=== PATIENT | male | born 1930 | race Caucasian/White ===

== ENCOUNTER 2017-08-02 20:31 | Inpatient (IN) | payer MEDICARE ==
[2017-08-02] MEDS ORDERED: Nitroglycerin 2% OINT* 1 GM PAK ONE (20:35)
[2017-08-02] MEDS ORDERED: Furosemide IV* 10 MG/ML VIAL (40 MG) ONE (20:35)
[2017-08-02] MEDS ORDERED: Furosemide IV* 10 MG/ML VIAL (40 MG) IV ONE (20:36)
[2017-08-02] MEDS ORDERED: Nitroglycerin 2% OINT* 1 GM PAK TOPICAL ONE (20:37)
[2017-08-02] MEDS ORDERED: Piperacillin/Tazobac ADVAN(*) 3.375 GM in NS 0.9% 100 ML* 100 ML IVPB ONE (20:57)
[2017-08-02] MEDS ORDERED: Azithromycin IV(*) 500 MG in NS 0.9% 250 ML* 250 ML IVPB SCH (21:00)
[2017-08-02] MEDS ORDERED: Azithromycin IV(*) 500 MG in NS 0.9% 250 ML* 250 ML IVPB ONE (21:00)
--- NOTE | 2017-08-02 21:04 | RAD ---
INDICATION: Short of breath COMPARISON: June 21, 2015 TECHNIQUE: An AP portable view obtained at 2053 hours is submitted. FINDINGS: Bones/Soft Tissues: There are no acute bony findings. Cardiomediastinal: The cardiomediastinal silhouette is normal. Lungs: There are patchy, bilateral, interstitial and alveolar infiltrates. Consider pulmonary interstitial edema. Given these diffuse changes, coexistent infectious infiltrates are not excluded. Suggest follow-up. Pleura: Tiny bilateral effusions.. Other: Chronic elevation left hemidiaphragm. IMPRESSION: BILATERAL INTERSTITIAL AND ALVEOLAR INFILTRATES LIKELY SECONDARY TO VASCULAR CONGESTION
[2017-08-02] MEDS ORDERED: Diltiazem IV* 5 MG/ML 5 ML VIAL (for loading dose/IV Push) (25 MG) IV SLOW PU ONE (21:34)
[2017-08-02 21:43] LABS: ABS Basophils 0 10^3/ul (0-0.2); ABS Eosinophils 0.1 10^3/ul (0-0.6); ABS Lymphocytes 0.4 10^3/ul (1.0-4.8); ABS Monocytes 0.9 10^3/ul (0-0.8); ABS Neutrophils 14.4 10^3/ul (1.5-7.7); ABS Nucleated RBC 0 10^3/ul; Eosinophil % 0.5 % (0-6); Hematocrit 44 % (42-52); Lymphocyte % 2.8 % (25-47); Mean Corpuscular HGB Conc 34 g/dl (31-36); Mean Corpuscular Hemoglobin 32 pg (27-31); Mean Corpuscular Volume 94 fL (80-94); Mean Platelet Volume 10 um3 (7.4-10.4); Nucleated Red Blood Cells % 0; Platelet Count 116 10^3/ul (150-450); Red Blood Count 4.69 10^6/ul (4.0-5.4); Red Cell Distribution Width 14 % (10.5-15); White Blood Count 15.9 10^3/ul (3.5-10.8)
[2017-08-02] MEDS: Acetaminophen TAB* 325 MG PO ONE ×2 (21:51→21:55)
[2017-08-02 21:52] LABS: INR 1.09 (0.77-1.02)
[2017-08-02 22:05] LABS: EGFR Non-African American 81.9 (>60)
[2017-08-02] MEDS ORDERED: Oseltamivir CAP* 75 MG CAP PO ONE (22:08)
[2017-08-02] MEDS ORDERED: Vancomycin(*) 1,000 MG in NS 0.9% 250 ML* 250 ML IVPB ONE (22:08)
[2017-08-02 22:10] LABS: Urine Appearance Clear; Urine Blood 1+ (Negative); Urine Color Straw; Urine Ketones Negative (Negative); Urine Protein 2+(100 mg/dL) (Negative); Urine Specific Gravity 1.008 (1.010-1.030); Urine Urobilinogen Negative (Negative)
[2017-08-02] MEDS ORDERED: Al Hydrox/Mg Hydrox/Simet LIQ* 30 ML UDC PO PRN (22:58)
[2017-08-02] MEDS ORDERED: Senna TAB PO PRN (22:58)
[2017-08-02] MEDS ORDERED: Ondansetron INJ* 2 MG/ML VIAL IV PRN (22:58)
--- NOTE | 2017-08-02 23:04 | ED ---
Sara Jones Thomas, scribed for Martha Lynn MD on 08/02/17 at 2054 . Shortness of Breath - HPI Summary HPI Summary: The patient is an 87 year old male brought in by ambulance with respiratory distress. In the ambulance he was satting 70% and respirations were in the 40s. The patient was given a Duo-Neb by EMS with no change in saturation or respirations. He was put on CPAP en route to [facility] [place] He was given 10 mg dexamethasone IM by EMS. He denies chest pain. His was recently sick with the flu. It is unknown if he has a history of CHF. - History of Current Complaint Chief Complaint: EDShortnessOfBreath Hx Obtained From: Patient, EMS Onset/Duration: Still Present Timing: Constant Current Severity: Severe Dyspnea At: Rest Alleviating Factors: Nothing Associated Signs & Symptoms: Negative - CP - Allergy/Home Medications Allergies/Adverse Reactions: Allergies Allergy/AdvReac Type Severity Reaction Status Date / Time MS Latex [Latex] Allergy Severe Rash And Verified 03/30/16 11:38 Itching MS Zolpidem [From Ambien] Allergy Anxiety Verified 03/30/16 11:28 MS Niacin [Niacin] AdvReac Severe See Comment Verified 03/30/16 11:28 Home Medications: Home Medications Aspirin EC Low Dose* [Ecotrin EC Low Dose 81 MG*] 81 mg PO QAM 08/02/17 [ History Confirmed 08/02/17] DOXYcycline CAP(*) [DOXYcycline 100MG CAP(*)] 100 mg PO BID 08/02/17 [History Confirmed 08/02/17] Multivitamins/Minerals TAB* [Theragran/minerals TAB*] 1 tab PO DAILY 08/02/17 [ History Confirmed 08/02/17] Nitroglycerin TAB 0.4 MG* 0.4 mg SL Q5M PRN 08/02/17 [History Confirmed 08/02/17 ] Simvastatin (NF) [Zocor (NF)] 40 mg PO QPM 08/02/17 [History Confirmed 08/02/17] PMH/Surg Hx/FS Hx/Imm Hx Endocrine/Hematology History: Reports: Hx Anticoagulant Therapy, Hx Anemia Denies: Hx Blood Disorders, Hx Blood Transfusions, Hx Bone Marrow Disease, Hx Diabetes, Hx Systemic Lupus Erythematosus, Hx Sickle Cell Disease, Hx Thyroid Disease, Hx Unexplained Bleeding, Other Endocrine/Hematological Disorders Cardiovascular History: Reports: Hx Angina, Hx Angioplasty, Hx Atrial Fibrillation - ON WARFARIN, Hx Coronary Artery Disease, Hx Hypercholesterolemia , Hx Hypertension, Hx Syncope Denies: Hx Aneurysm, Hx Auto Implanted Cardiovert Defib, Hx Cardiac Arrest, Hx Cardiomegaly, Hx Congenital Heart Disease, Hx Congestive Heart Failure, Hx Deep Vein Thrombosis, Hx Embolism, Hx Hypotension, Hx Pacemaker/ICD, Hx Peripheral Vascular Disease, Hx Rheumatic Fever, Hx Valvular Heart Disease, Other Cardiovascular Problems/Disorders Respiratory History: Reports: Other Respiratory Problems/Disorders - SOB Denies: Hx Asthma, Hx Chronic Bronchitis, Hx Chronic Obstructive Pulmonary Disease (COPD), Hx Cystic Fibrosis, Hx Lung Cancer, Hx Pleural Effusion, Hx Pneumonia, Hx Pulmonary Edema, Hx Pulmonary Embolism, Hx Seasonal Allergies, Hx Sleep Apnea GI History: Reports: Hx Gastroesophageal Reflux Disease, Hx Hiatal Hernia - hx herniated diaphram, Other GI Disorders - hx pancreatitis; Denies: Hx Cirrhosis, Hx Crohn's Disease, Hx Diverticulosis, Hx Gall Bladder Disease, Hx Gastrointestinal Bleed, Hx Irritable Bowel, Hx Jaundice, Hx Obstructive Bowel, Hx Ileostomy, Hx Pyloric Stenosis, Hx Ulcer History: Denies: Hx Renal Disease Musculoskeletal History: Reports: Hx Arthritis, Hx Bursitis Denies: Hx Back Problems, Hx Congenital Bone Abnormalities, Hx Fibromyalgia, Hx Gout, Hx Orthopedic Injury, Hx Osteoporosis, Hx Scoliosis, Hx Tendonitis, Other Musculoskeletal History Sensory History: Reports: Hx Cataracts, Hx Contacts or Glasses Denies: Hx Eye Injury, Hx Eye Prosthesis, Hx Glaucoma, Hx Legally Blind, Hx Macular Degeneration, Hx Vision Problem, Hx Deafness, Hx Hearing Aid, Hx Hearing Problem, Other Sensory Impairments Opthamlomology History: Reports: Hx Cataracts, Hx Contacts or Glasses Denies: Hx Eye Injury, Hx Eye Prosthesis, Hx Glaucoma, Hx Legally Blind, Hx Macular Degeneration, Hx Vision Problem, Other Sensory Impairments Neurological History: Reports: Hx Transient Ischemic Attacks (TIA) - 1986 Denies: Hx Dementia, Hx Developmental Delay, Hx Headaches, Hx Migraine, Hx Nerve Disease, Hx Seizures, Hx Spinal Cord Injury, Other Neuro Impairments/ Disorders - Cancer History Cancer Type, Location and Year: 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 - Surgical History Surgery Procedure, Year, and Place: CARDIAC STENT PLACED 2011, left posterior shoulder melanoma removed - Immunization History Date of Tetanus Vaccine: unknown Infectious Disease History: Reports: Hx of Known/Suspected MRSA Denies: Hx Hepatitis, Hx Tuberculosis - Family History Known Family History: Positive: Cardiac Disease - Social History Alcohol Use: Rare Alcohol Amount: 5-6 glasses a week Hx Substance Use: No Substance Use Type: Reports: None Hx Tobacco Use: Yes Smoking Status (MU): Former Smoker Type: Cigarettes Amount Used/How Often: 3 PPD Length of Time of Smoking/Using Tobacco: 55 years Have You Smoked in the Last Year: No Review of Systems Negative: Chest Pain Positive: Shortness Of Breath All Other Systems Reviewed And Are Negative: Yes Physical Exam - Summary Physical Exam Summary: VITAL SIGNS: Reviewed. He is tachypnic and hypertensive. GENERAL: Patient is a well-developed and nourished male who is lying in the stretcher. He is in respiratory distress. HEAD AND FACE: No signs of trauma. No ecchymosis, hematomas or skull depressions. No sinus tenderness. EYES: PERRLA, EOMI x 2, No injected conjunctiva, no nystagmus. EARS: Hearing grossly intact. Ear canals and tympanic membranes are within normal limits. MOUTH: Oropharynx within normal limits. NECK: There is 6 cm JVD. Supple, trachea is midline, no adenopathy, no carotid bruit, no c-spine tenderness, neck with full ROM. CHEST: Symmetric, no tenderness at palpation LUNGS: He is in respiratory distress. He is tachypnic. He has difficulty breathing. He has bialteral rales long-term up. CVS: Regular rate and rhythm, S1 and S2 present, no murmurs or gallops appreciated. He denies any chest pain. ABDOMEN: Soft, non-tender. No signs of distention. No rebound no guarding, and no masses palpated. Bowel sounds are normal. EXTREMITIES: FROM in all major joints, no edema, no cyanosis or clubbing. NEURO: Alert and oriented x 3. No acute neurological deficits. Speech is normal and follows commands. SKIN: Dry and warm Triage Information Reviewed: Yes Vital Signs On Initial Exam: Initial Vitals Pulse Resp 148 43 08/02/17 20:42 08/02/17 20:42 Vital Signs Reviewed: Yes Diagnostics - Vital Signs Vital Signs Pulse Resp 08/02/17 20:42 148 43 - Laboratory Result Diagrams: 08/02/17 21:25 08/02/17 21:25 Lab Statement: Any lab studies that have been ordered have been reviewed, and results considered in the medical decision making process. - Radiology CXR Xray Interpretation: Positive (See Comments) - BILATERAL INTERSTITIAL AND ALVEOLAR INFILTRATES LIKELY SECONDARY TO VASCULAR CONGESTION. Dr. Lynn has reviewed this report. Radiology Interpretation Completed By: Radiologist - EKG 20:43 Cardiac Rate: Tachycardia EKG Rhythm: Atrial Fibrillation - with RVR at 144 BPM EKG Interpretation: Nonspecific ST. Re-Evaluation - Re-Evaluation First Eval Re-Evaluation Time: 22:59 Comment: Discussed results. Patient will be admitted. Course/Dx - Course Assessment/Plan: The patient is an 87 year old male brought in by ambulance with respiratory distress. The patient was not given IV fluids as per sepsis protocol because he does have congestive heart failure, which is acute as well. Bloodwork, EKG, and CXR were obtained. The patient is diagnosed with pneumonia, CHF, and influenza. The patient was treated with antibiotics, diuretics, and Tamiflu. The patient is doing well on BiPap. He is hemodynamically stable and will be admitted to Dr. Burks. - Diagnoses Provider Diagnoses: Pneumonia, CHF (congestive heart failure), Influenza - Physician Notifications Discussed Care of Patient With: Davina Burks Time Discussed With Above Provider: 22:40 Instructed by Provider To: Admit As Inpatient - Critical Care Time Critical Care Time: 30-74 min - 40 minutes. CCT is exclusive of seprately billable procedures. Discharge - Discharge Plan Condition: Stable Disposition: ADMITTED TO [facility] Referrals: Shante Reyes MD [Primary Care Provider] - The documentation as recorded by the Sara warren Thomas accurately reflects the service I personally performed and the decisions made by Shane montesinos Abdul, MD.
[2017-08-02] MEDS: Acetaminophen TAB* 325 MG PO PRN (23:07)
[2017-08-02] MEDS ORDERED: NS 0.9% 500 ML* 500 ML IV ONE (23:20)
[2017-08-02] MEDS ORDERED: Metoprolol Tartrate IV* 1 MG/ML 5 ML VIAL IV PRN (23:22)
[2017-08-02] MEDS ORDERED: Oseltamivir CAP* 75 MG CAP PO SCH (23:30)
[2017-08-03] MEDS ORDERED: Magnesium Sulfate 1 GM IV* 1 GM/100 ML BAG IV ONE (00:05)
[2017-08-03] MEDS ORDERED: NS 0.9% 500 ML* 500 ML IV ONE (02:32)
[2017-08-03] MEDS: Heparin VIAL(*) 5000 UNITS/ML VIAL (FIVE THOUSAND) SUBCUT SCH ×3 (05:40→21:09)
[2017-08-03 06:01] LABS: ABS Basophils 0 10^3/ul (0-0.2); ABS Eosinophils 0 10^3/ul (0-0.6); ABS Lymphocytes 0.5 10^3/ul (1.0-4.8); ABS Monocytes 0.3 10^3/ul (0-0.8); ABS Neutrophils 8.9 10^3/ul (1.5-7.7); ABS Nucleated RBC 0 10^3/ul; Eosinophil % 0 % (0-6); Hematocrit 40 % (42-52); Hemoglobin 13.4 g/dl (14.0-18.0); Lymphocyte % 5.2 % (25-47); Mean Corpuscular HGB Conc 34 g/dl (31-36); Mean Corpuscular Hemoglobin 32 pg (27-31); Mean Corpuscular Volume 95 fL (80-94); Mean Platelet Volume 10 um3 (7.4-10.4); Nucleated Red Blood Cells % 0; Platelet Count 91 10^3/ul (150-450); Red Blood Count 4.18 10^6/ul (4.0-5.4); Red Cell Distribution Width 14 % (10.5-15); White Blood Count 9.7 10^3/ul (3.5-10.8)
[2017-08-03 06:04] LABS: EGFR Non-African American 92.8 (>60)
--- NOTE | 2017-08-03 08:25 | HP ---
CC: Dr. Shante Ryees.* HISTORY AND PHYSICAL: DATE OF ADMISSION: 08/02/17. TIME OF EVALUATION: 2199. PRIMARY CARE PHYSICIAN: Dr. Shante Reyes CHIEF COMPLAINT: Respiratory distress. HISTORY OF PRESENT ILLNESS: This is an 87-year-old male with the past medical history of coronary artery disease, CHF, and moderate , who presented to the emergency room with acute onset of respiratory distress. The patient states he was in his usual state of health when he woke up acutely short of breath. His daughter, who cares him at home, called EMS and he was brought to the emergency room. In the emergency room, the patient was found to be in florid heart failure per the ER staff. He was placed on BiPAP. He was given Lasix 40 mg, Diltiazem 20 mg, and an inch of Nitropaste. He was given Tamiflu when his flu came back positive, Zosyn, vancomycin, and was referred to the hospitalist service for further evaluation. The patient states he was in his usual state of health. He denies any chest pain. No nausea or vomiting. No abdominal pain. He is having some discomfort around the James catheter area. No dysuria. He thinks he has been gaining some weight. He had some canned soup for dinner last evening. When discussing his home situation, his daughter Aleja, his healthcare proxy, helps care for him with his ADLs. He does ambulate with a walker. I did speak with Aleja, his health-care proxy, over the phone. She was diagnosed with the flu a few days ago. She states that she had noticed that he had been coughing more, but did not seem to be in any significant distress throughout the day. Otherwise, review of systems is negative. PAST MEDICAL HISTORY: 1. History of coronary artery disease, status post PCI. 2. History of hyperlipidemia. 3. History of moderate based on prior echo. 4. History of congestive heart failure. 5. History of anemia. 6. Hyperlipidemia. MEDICATIONS: Per med rec, as the patient was not sure what he was takin. Zocor 40 mg p.o. daily. 2. Aspirin 81 mg p.o. daily. 3. Multivitamin daily. 4. Lasix [40 to 1200?] mg p.o. daily. 5. Metoprolol 25 mg p.o. b.i.d. 6. Doxycycline 100 mg p.o. b.i.d. 7. Potassium chloride 20 mEq p.o. daily. 8. Nitro 0.4 mg sublingual q.5 minutes as needed. 9. Plavix 75 mg daily. ALLERGIES: LATEX, NIACIN, ZOLPIDEM. FAMILY HISTORY: Reviewed and noncontributory. SOCIAL HISTORY: As mentioned, the patient lives at home with his daughter, Aleja. He ambulates with a walker. She helps him with bathing, dressing, and meals. He does get out of the house every once in a while to go to [employer] to have a glass of wine. He last went out on 07/28/17. Code status - this has been discussed. Initially, the patient wishes to be DNR/DNI; then, with concern of eminent intubation, he stated he did not care. I talked to the daughter at length. They would like to give it a try if it is appropriate. Healthcare proxy is Aleja, his daughter. REVIEW OF SYSTEMS: A 14-point review of systems as mentioned in the HPI, otherwise negative. PHYSICAL EXAMINATION GENERAL: Elderly male, in [id number] respiratory distress, on nasal cannula once removed off of trial BiPAP, improved while on BiPAP. VITAL SIGNS: T-Max 102, pulse rate 68, respiratory rate 22, pulse oxygen saturation on 60% FiO2 BIPAP, blood pressure 90/50. HEENT: Head normocephalic. Pupils equal and reactive, anicteric. Oropharynx: Mucous membranes are dry. NECK: Supple, no adenopathy. RESPIRATORY: Coarse rhonchorous breath sounds bilaterally with increased work of breathing. CARDIAC: Irregular regular rate and rhythm. Soft systolic murmur heard throughout. ABDOMEN: Soft, nontender, nondistended. EXTREMITIES: Trace pretibial edema, +1 DPs. NEUROLOGIC: No gross focal neurologic deficits. Alert and oriented x3. LABORATORY DATA: White count 15.9, hemoglobin 15, hematocrit 44, and platelets 116. INR 1.09. Blood gas - pH of 7.4, pCO2 of 37, pO2 of 73. Sodium 132, potassium 4, chloride 99, bicarb 23, BUN 19, creatinine 0.88, glucose 193, mag 1.8, troponin 0.18. BMP is 176. Urinalysis shows +1 blood, protein, influenza A positive. Radiographic data: Chest x-ray shows bilateral interstitial and alveolar infiltrates, likely secondary to vascular congestion. EKG: Shows atrial fibrillation with a rapid ventricular rate, ST depression in the inferior leads. ASSESSMENT: This is an 87-year-old male with the past medical history of coronary artery disease, CHF, who presents to the emergency room with acute onset of respiratory distress and found to have influenza A. 1. Respiratory distress. Assessment: This is going to be challenging with sepsis and influenza, giving him volume in the setting of his heart failure. We discussed intubating him. In the emergency room, the patient appears relatively comfortable on BiPAP. He appears ambivalent about getting intubated. I did speak with Dr. Villeda at length regarding his clinical status. Plan: We will admit to the ICU. We will give him gentle boluses throughout the evening. If he becomes more distressed or dependant with the BiPAP requiring more FiO2, we will intubate him. We will continue him on the Tamiflu and keep him n.p.o. Due to the acute onset, I do not think he has a secondary pneumonia at this time. We will check a procalcitonin. 2. Elevated troponin: I suspect this is demand ischemia in the setting of sepsis. He does not have any chest pain. He does have some ST depression on his EKG. Plan: We will trend his troponins, repeat his EKG in the morning. We will follow up with communication center operator and Dr. Reyes regarding further workup including an echocardiogram. 3. Atrial fibrillation: It is not clear that he has had this in the past. It appears it could be new onset, likely in the setting of the sepsis. He did respond to the Diltiazem. With his heart failure presentation as well, we will give him metoprolol boluses as needed. His rate has come down since his admission. No indication for anticoagulation at this time. 4. Chronic medical problems: History of coronary artery disease, moderate aortic sclerosis. As mentioned, we would follow up on when his most recent echo was, may be worthwhile checking it; again, we will defer to the daytime team. We will hold his p.o. cardiac meds for now in the setting of his respiratory distress. 5. Fluids, electrolytes and nutrition: NPO. We will bolus him as needed. 6. Deep venous thrombosis prophylaxis: The patient's score is high risk. We will place him on heparin subcu t.i.d. 7. Code status: For now, the patient is full code. He seemed rather ambivalent about this. I asked him several times. At first, he was saying he did not want anything. The daughter, I spoke with as well as, feels like he should give it a try and that he would want to try. We will keep him a full code and this should be readdressed daily in his critical state. PATIENT TIME: Greater than 60 minutes spent doing history and physical, more than half the time was spent in direct patient contact, critical care time, and discussion with the ER doctor, daughter, and Dr. Villeda. [id number]/[facility] #: [id number] AALIYAH
[2017-08-03] MEDS: Oseltamivir CAP* 75 MG CAP PO SCH ×2 (08:55→21:09)
--- NOTE | 2017-08-03 09:08 | ECHO ---
Patient: AVEL JAMES [facility] Rec#: [id number] : 1930 Date: 08/03/2017 Age: 87y Height: 180.34 cm / 71.0 in Weight: 99.79 kg / 219.9 lbs Sex: M BSA: 2.2 Room#: ICU-5 Admit Date#: 08/02/2017 Type: Inpatient Referring: Davina Burks Reading: Rick Chaney MD [employer] Operator: Shanon Knight RDCS CC: Shante Reyes MD Transthoracic Echocardiogram Indication: ACS, CHF, A-fib BP: 92/61 HR: 99 Rhythm: A-Fib Findings History: A-fib on Warfarin, CAD w/ stent 2011, former smoker, HLD, HTN, and syncope. Technical Comments: The study quality is fair. The study is technically limited due to poor acoustic windows. Completed at 0840. Left Ventricle: The left ventricular chamber size is normal. Moderate concentric left ventricular hypertrophy is observed. There is a focal wall motion abnormality present. Left ventricular systolic function is at the lower limits of normal. The estimated ejection fraction is 50-55%. The assessment of diastolic function is non-diagnostic. The mid inferior, and apical inferior wall segments are hypokinetic (score 2). Overall wallmotion score index is 2.00 Left Atrium: The left atrium is mildly dilated. Right Ventricle: The right ventricle wall thickness is mildly increased. The right ventricular cavity size is normal. The right ventricular global systolic function is low normal. Right Atrium: The right atrium is mildly dilated. Aortic Valve: The aortic valve is trileaflet. Moderate aortic leaflet calcification is visualized. Systolic excursion of the aortic valve cusps is reduced. There is mild aortic regurgitation. There is moderate aortic stenosis. The mean gradient of the aortic valve is 17.44 mmHg. The peak instantaneous gradient of the aortic valve is 27.63 mmHg. The aortic valve area, by peak velocities, is calculated at 0.8 cm2. The aortic valve area, by VTI's, is calculated at 0.8 cm2. Mitral Valve: There is mitral annular calcification. The mitral valve leaflets are mildly thickened. There is trace to mild mitral regurgitation. There is no evidence of mitral stenosis. Tricuspid Valve: The tricuspid valve leaflets are normal. There is trace tricuspid regurgitation. The right ventricular systolic pressure is estimated at 31 mmHg. There is evidence that pulmonary hypertension may be underestimated. There is no tricuspid stenosis. Pulmonic Valve: The pulmonic valve structure is not well visualized. There is a trace pulmonic regurgitation. There is no pulmonic stenosis. Pericardium: There is no significant pericardial effusion. A pericardial fat pad is visualized. Aorta: There is no dilatation of the ascending aorta. There is no dilatation of the aortic arch. The aortic root is normal in size. Pulmonary Artery: The main pulmonary artery is not well visualized. Venous: The inferior vena cava is dilated. There is less than 50% respiratory change in the inferior vena cava dimension. Conclusions Moderate concentric left ventricular hypertrophy is observed. Left ventricular systolic function is at the lower limits of normal. The estimated ejection fraction is 50-55%. The mid inferior, and apical inferior wall segments are hypokinetic (score 2). The right ventricular global systolic function is low normal. Moderate aortic leaflet calcification is visualized. There is moderate aortic stenosis. The mean gradient of the aortic valve is 17.44 mmHg. There is mild aortic regurgitation. There is trace to mild mitral regurgitation. There is trace tricuspid regurgitation. The right ventricular systolic pressure is estimated at 31 mmHg. There is no significant pericardial effusion. Compared to study of 10/28/15, the LV function is slightly lower. Aortic valve stenosis is the same Measurements Name Value Normal Range RVIDd (AP) 2D 3 cm (0.9 - 2.6) RVDdMajor (2D) 3.9 cm (2.2 - 4.4) RVAW (2D) 0.6 cm (0.2 - 0.5) RAd ISD 4CH 5 cm (3.4 - 4.9) RA (A4C)W 3.8 cm (2.9 - 4.6) IVSd (2D) 1.5 cm (0.6 - 1) LVPWd (2D) 1.4 cm (0.6 - 1) LVIDd (2D) 4.2 cm (3.6 - 5.4) LVIDs (2D) 3.6 cm - LV FS (2D) 15 % (25 - 45) Aortic Annulus 2.3 cm (1.4 - 2.6) Ao root diameter (2D) 3.2 cm (2.1 - 3.5) Ascending Ao 3.1 cm (2.1 - 3.4) Aortic arch 3 cm (1.8 - 3.4) LA dimension (AP) 2D 3.6 cm (2.3 - 3.8) LAd ISD 4CH 6.5 cm (2.9 - 5.3) LA ISD 4CH W 5 cm (2.5 - 4.5) Name Value Normal Range LA ESV SP 4CH (A/L) 61 ml - LA ESV SP 2CH (A/L) 90 ml - LA ESV BP (A/L) 76 ml - LA ESV BP (A/L) index 35 ml/m2 - LA ESV SP 4CH (MOD) 57 ml - LA ESV SP 2CH (MOD) 86 ml - Name Value Normal Range MV E-wave Vmax 1.22 m/sec - MV deceleration time 167 msec - MV E:A ratio 214.92 ratio - LV septal e' Vmax 0.06 m/sec - LV lateral e' Vmax 0.06 m/sec - LV E:e' septal ratio 20.33 ratio - LV E:e' lateral ratio 20.33 ratio - Name Value Normal Range AV Vmax 2.6 m/sec - AV VTI 54.49 cm - AV peak gradient 27.63 mmHg - AV mean gradient 17.44 mmHg - LVOT diameter 2.1 cm - LVOT Vmax 0.58 m/sec - LVOT VTI 13 cm - LVOT peak gradient 1.38 mmHg - LVOT mean gradient 0.81 mmHg - DOI (VTI) 0.24 ratio - OSILE (continuity Vmax) 0.8 cm2 - OSIEL (continuity VTI) 0.8 cm2 - AR PHT 433 msec - AR peak gradient 45.17 mmHg - AFSANEH Vmax 0.35 m/sec - Name Value Normal Range TR Vmax 2 m/sec - TR peak gradient 16 mmHg - RAP 15 mmHg - RVSP 31 mmHg - IVC diameter 2.6 cm - Name Value Normal Range PV Vmax 0.68 m/sec - PV peak gradient 1.89 mmHg - Wallmotion BAS Not Seen BA Not Seen BAL Not Seen LEILA Not Seen BI Not Seen BIS Not Seen MAS Not Seen MA Not Seen MAL Not Seen MIL Not Seen OH Hypokinetic MIS Not Seen Not Seen AA Not Seen AL Not Seen AI Hypokinetic APEX Not Seen
[2017-08-03] MEDS ORDERED: Succinylcholine* 20 MG/ML 10 ML VIAL ONE (09:41)
[2017-08-03] MEDS ORDERED: Propofol* 100 ML ONE (09:48)
[2017-08-03] MEDS ORDERED: fentaNYL* 50 MCG/ML 5 ML VIAL (250 MCG VIAL) ONE (09:55)
[2017-08-03] MEDS ORDERED: KETAMINE HCL* 50 MG/ML 10 ML VIAL ONE (10:00)
[2017-08-03] MEDS ORDERED: Propofol* 10 MG/ML 20 ML BTL IV PUSH ONE (10:01)
[2017-08-03] MEDS ORDERED: NS 0.9% 1000 ML* 1,000 ML IV ONE (10:07)
[2017-08-03] MEDS: Propofol* 100 ML IV SCH ×3 (11:00→21:54)
[2017-08-03] MEDS: Famotidine SUSP* 40 MG/5 ML ORAL.SYRIN G TUBE SCH (11:16)
[2017-08-03] MEDS: Chlorhexidine MOUTHWASH 0.12%* 15 ML UDC TOPICAL SCH ×4 (11:16→22:01)
[2017-08-03] MEDS: Clopidogrel TAB* 75 MG PO SCH (11:16)
[2017-08-03] MEDS: Aspirin EC Low Dose* 81 MG TAB.EC PO SCH (11:16)
--- NOTE | 2017-08-03 11:35 | PN ---
Progress Note - Progress Note Date of Service: 08/03/17 Note: CRITICAL CARE MEDICINE Date: 08/03/17 Time: 900 SUBJECTIVE: Patient seen and examined. daughter at bedside. Case and care reviewed with Dr. Burks through the night. Feels ok. so so. little tired. bipap ok. no pains. PHYSICAL EXAM: Vital Signs: Reviewed. Hr 90s. Neurologic: awake, comminicating, holds capacity HEENT: pupils equal. Sclera anicteric. Trachea midline. Cardiovascular: S1 S2, 3/6 mathew of as Respiratory: diffuses rhonchi and mild squalk on left base. 50% FiO2 with sats mid 90s. Bipap with rr in 20s and MV in low to mid teens. adequate volumes but variable Abdomen: Soft, obese, nt. No r/g/r. Extremities: Warm. Access: piv LABS: Reviewed. IMAGING: Reviewed. MEDICATIONS: Reviewed. ASSESSMENT: 87 M Influenza A pna Acute hypoxic resp failure Afib with rvr on admission (previously on anticoag) NSTEMI - sec to demand ischemia Acute on chronic systolic heart failure, with Thrombocytopenia sec to inflamm consumption CAD (h/o 9 stents) H/o GIB (when on anticoag) PLAN: discussed plans with pt: intubation and mv for a few days to overcome resp failure/influ A and avoid potential for ards and worsening, already with demand ischemia, needing time to overcome. COuld consider remaining on bipap, but would need several days with not much time without and chances of lungs failing leading to further cardiac ailments high. He expressed understanding and agrees with intubation. Neurologic: communicating well and hold capacity. propofol post intubation. Cardiovascular: Pefusing but demands high and will likely remain that way. Type 2 ischemia alraedy apparent. take away demand with intubation and avoid further cardiac vol overload and exacerbating as. resume his asa, plavix, statin. given bleed history and type 2, can hold off on anticoag beyond that. afib rate control. add back bb when room. appreciate cards knowledge of pt. may need to re -investigate cad after he gets through this process since this is a stress test failure with focal wall motion abnormality but no acute need given his present dynamics. Respiratory: lungs will need time. intubation. aprv when able. pulm toliet. Gastrointestinal: ogt. sup. tf Renal/Metabolic: f/u fx as hemoconcentrated on admission and maintaining their balance. baker Infectious Disease: tamiflu. recieved abx. can equilibrate to using levaquin alone to avoid potential bacterial ailment, although luckily only acting viral and nontoxic. check sputum. Hematology: dilutated a little. plt consumption. asa, plavix. hsq Endocrine: f/u for any steroid needs. bg Musculoskeletal: avoid deconditioning Psych/Social: pt and daugther (who he states is his proxy) expressed understanding and agreed with plans. Supportive and preventative care as ordered. Vaccine: received flu already SUP: H2 VTE prophylaxis: heparin Baker catheter given critical illness, monitoring needs for accurate assessment of MIGUEL and KDIGO criteria for critically ill patients and to avoid potential harms of urinary retention, skin breakdown/ulcers. Disposition: ICU Code Status: DNR Critical Care Time: 35min, excluding procedures Brayan Villeda DO
--- NOTE | 2017-08-03 11:36 | PN ---
Progress Note - Progress Note Date of Service: 08/03/17 Note: CRITICAL CARE MEDICINE PROCEDURE NOTE DATE: 08/03/17 TIME: 1000 SERVICE: Critical Care Medicine LOCATION OF PROCEDURE: ICU PROCEDURE: Endotracheal intubation PROCEDURALIST: Dr. Villeda Consent obtain: Yes, but procedure performed emergently Time out held: Not indicated INDICATION: Acute respiratory failure. PROCEDURE: Oxygenation maintained and vitals monitored. Patient in supine position. Pre-medication with fentanyl 250mcg total, ketamine 100mg, propofol 50mg. Glidescope #3 inserted with Grade 2 view obtained. 8.0 endotracheal tube inserted to 23cm lip. Good chest rise with breath sounds appreciated in bilaterally lung arciniega. EtCO2 + color change. Portable chest x-ray pending. Patient otherwise tolerated well. Brayan Villeda, DO
[2017-08-03] MEDS ORDERED: Levofloxacin 750 MG IVPREMIX(* 750 MG/150 ML BAG IVPB SCH (12:00)
--- NOTE | 2017-08-03 12:26 | RAD ---
INDICATION: Status post intubation and orogastric tube placement. COMPARISON: Comparison is made with prior study from August 02, 2017. TECHNIQUE: A portable view of the chest was obtained. FINDINGS: The patient is status post intubation. The endotracheal tube projects over the midline and is faintly visualized. There is also faint visualization of an orogastric tube. The catheter tip projects overlying the right upper quadrant. The heart is moderately enlarged. There are diffuse interstitial and alveolar infiltrates and small bilateral pleural effusions suggestive of congestive heart failure. IMPRESSION: 1. FINDINGS SUGGESTIVE OF CONGESTIVE HEART FAILURE. 2. STATUS POST INTUBATION AND OROGASTRIC TUBE PLACEMENT.
[2017-08-03] MEDS: Atorvastatin* 40 MG TAB PO SCH (16:55)
[2017-08-03] MEDS: Metoprolol Tartrate IV* 1 MG/ML 5 ML VIAL IV PRN (21:44)
[2017-08-04] MEDS: Chlorhexidine MOUTHWASH 0.12%* 15 ML UDC TOPICAL SCH ×5 (02:32→19:40)
[2017-08-04] MEDS: Propofol* 100 ML IV SCH ×3 (04:00→21:16)
[2017-08-04 04:30] LABS: Hematocrit 38 % (42-52); Hemoglobin 12.8 g/dl (14.0-18.0); Mean Corpuscular HGB Conc 34 g/dl (31-36); Mean Corpuscular Hemoglobin 32 pg (27-31); Mean Corpuscular Volume 95 fL (80-94); Mean Platelet Volume 11 um3 (7.4-10.4); Platelet Count 103 10^3/ul (150-450); Red Blood Count 3.98 10^6/ul (4.0-5.4); Red Cell Distribution Width 14 % (10.5-15); White Blood Count 9.5 10^3/ul (3.5-10.8)
[2017-08-04 04:46] LABS: EGFR Non-African American 101.6 (>60)
[2017-08-04 04:55] LABS: ABS Basophils 0 10^3/ul (0-0.2); ABS Eosinophils 0 10^3/ul (0-0.6); ABS Lymphocytes 0.6 10^3/ul (1.0-4.8); ABS Monocytes 2.2 10^3/ul (0-0.8); ABS Neutrophils 6.6 10^3/ul (1.5-7.7); ABS Nucleated RBC 0 10^3/ul; Eosinophil % 0.1 % (0-6); Lymphocyte % 5.9 % (25-47); Nucleated Red Blood Cells % 0
[2017-08-04] MEDS: Heparin VIAL(*) 5000 UNITS/ML VIAL (FIVE THOUSAND) SUBCUT SCH ×3 (05:29→21:00)
[2017-08-04] MEDS: Metoprolol Tartrate TAB* 25 MG NG TUBE SCH ×2 (09:13→20:51)
[2017-08-04] MEDS: Aspirin EC Low Dose* 81 MG TAB.EC PO SCH (09:13)
[2017-08-04] MEDS: Clopidogrel TAB* 75 MG PO SCH (09:13)
[2017-08-04] MEDS: Famotidine SUSP* 40 MG/5 ML ORAL.SYRIN G TUBE SCH (09:13)
[2017-08-04] MEDS: Oseltamivir SUSP 75 MG dose* 75 MG/12.5 ML ORAL.SYRIN PO SCH ×2 (09:15→21:04)
--- NOTE | 2017-08-04 10:56 | PN ---
Progress Note - Progress Note Date of Service: 08/04/17 Note: CRITICAL CARE MEDICINE Date: 08/04/17 Time: 925 SUBJECTIVE: Patient seen and examined. daughter at bedside. PHYSICAL EXAM: Vital Signs: Reviewed. Hr 90s to 100s. bp stable. Fio2 30%. Neurologic: awakes; Rass -2. comfortable. denies pain. HEENT: pupils equal. Sclera anicteric. Trachea midline. Cardiovascular: S1 S2, 3/6 mathew of as more prominent Respiratory: distant, but more open, with bl rhonchi R>L. Vol and pressures stable. adjusted to aprv. Abdomen: Soft, obese, inc distension. nt. Extremities: Warm. Access: piv LABS: Reviewed. IMAGING: Reviewed. MEDICATIONS: Reviewed. ASSESSMENT: 87 M Influenza A pna Acute hypoxic resp failure Afib with rvr on admission (previously on anticoag) NSTEMI - sec to demand ischemia Acute on chronic systolic heart failure, with Thrombocytopenia sec to inflamm consumption CAD (h/o 9 stents) H/o GIB (when on anticoag) PLAN: Neurologic: communicating. keep comfortable on prop today. Cardiovascular: Pefusing. demands ok. hr still up a bit and bb added. inc as able. afterload reduction ultimately as well. cardiac regimen. Respiratory: lungs stabilized and see if we can maximize today with aprv. pulm toliet. nebs prn. cxr in am Gastrointestinal: ogt. sup. tf Renal/Metabolic: stable. baker Infectious Disease: tamiflu. dec levaquin and total abx for 5 days. sputum pending but likely not to change. Hematology: stable. asa, plavix. hsq Endocrine: f/u bg Musculoskeletal: avoid deconditioning Psych/Social: daugther expressed understanding and agreed with plans. Supportive and preventative care as ordered. Vaccine: received flu already SUP: H2 VTE prophylaxis: heparin Baker catheter given critical illness, monitoring needs for accurate assessment of MIGUEL and KDIGO criteria for critically ill patients and to avoid potential harms of urinary retention, skin breakdown/ulcers. Disposition: ICU Code Status: DNR Critical Care Time: 35min FSamantha Villeda DO
[2017-08-04] MEDS ORDERED: Levofloxacin 500 MG IVPREMIX(* 500 MG/100 ML BAG IVPB SCH (12:00)
[2017-08-04] MEDS ORDERED: Magnesium Sulfate 2 GM IV IVPB ONE ×2 (17:45→19:00)
[2017-08-04] MEDS ORDERED: Metoprolol Tartrate IV* 1 MG/ML 5 ML VIAL IV ONE (17:45)
[2017-08-04] MEDS ORDERED: Metoprolol Tartrate IV* 1 MG/ML 5 ML VIAL ONE (17:46)
[2017-08-04] MEDS ORDERED: Magnesium Sulfate 2 GM IV* 2 GM/50 ML BAG ONE (17:47)
[2017-08-04] MEDS: Metoprolol Tartrate IV* 1 MG/ML 5 ML VIAL IV PRN (17:53)
[2017-08-04] MEDS: Furosemide IV* 10 MG/ML VIAL (40 MG) IV SLOW PU SCH (17:53)
[2017-08-04] MEDS: Atorvastatin* 40 MG TAB PO SCH (18:00)
[2017-08-05] MEDS: Chlorhexidine MOUTHWASH 0.12%* 15 ML UDC TOPICAL SCH ×4 (00:03→11:31)
[2017-08-05] MEDS: Propofol* 100 ML IV SCH ×2 (03:31→09:08)
[2017-08-05 04:55] LABS: EGFR Non-African American 88.9 (>60)
[2017-08-05] MEDS: Heparin VIAL(*) 5000 UNITS/ML VIAL (FIVE THOUSAND) SUBCUT SCH ×3 (05:19→20:36)
[2017-08-05] MEDS: Oseltamivir SUSP 75 MG dose* 75 MG/12.5 ML ORAL.SYRIN PO SCH ×2 (09:08→20:51)
[2017-08-05] MEDS: Furosemide IV* 10 MG/ML VIAL (40 MG) IV SLOW PU SCH (09:08)
[2017-08-05] MEDS: Famotidine SUSP* 40 MG/5 ML ORAL.SYRIN G TUBE SCH (09:12)
[2017-08-05] MEDS: Metoprolol Tartrate TAB* 25 MG NG TUBE SCH (09:12)
[2017-08-05] MEDS: Clopidogrel TAB* 75 MG PO SCH (09:12)
[2017-08-05] MEDS: Aspirin EC Low Dose* 81 MG TAB.EC PO SCH (09:13)
--- NOTE | 2017-08-05 11:16 | PN ---
Progress Note - Progress Note Date of Service: 08/05/17 Note: CRITICAL CARE MEDICINE Date: 08/05/17 Time: 1000 SUBJECTIVE: Patient seen and examined. daughter at bedside. PHYSICAL EXAM: Vital Signs: Reviewed. Hr 90s to 100s. bp stable. Fio2 30%. cpap Neurologic: awakes; Rass -2. comfortable. denies pain. HEENT: pupils equal. Sclera anicteric. Trachea midline. Cardiovascular: S1 S2, 3/6 mathew Respiratory: distant, but better and mild R rhonci still. Abdomen: Soft, obese, inc distension. nt. Extremities: Warm. Access: piv LABS: Reviewed. IMAGING: Reviewed. MEDICATIONS: Reviewed. ASSESSMENT: 87 M Influenza A pna Acute hypoxic resp failure Afib with rvr on admission (previously on anticoag) NSTEMI - sec to demand ischemia Acute on chronic systolic heart failure, with Thrombocytopenia sec to inflamm consumption CAD (h/o 9 stents) H/o GIB (when on anticoag) PLAN: Neurologic: communicating. off prop. Cardiovascular: Pefusing. had a bit of polymorphic vt yesetrday which improved with vent change and rx. Contributed more from as and tachycardiac with intrathoracic pressures, rather then new cardiac insult. stay on rx. likely need cath come wednesday or so prior to dc from hospital anyway Respiratory: lungs stabilized. liberate today. can see how he does. pulm toilet from there Gastrointestinal: sup. tf held. po later Renal/Metabolic: stable. baker Infectious Disease: tamiflu for 5 days total. cx neg, procal neg. can dc levaquin. Hematology: stable. asa, plavix. hsq Endocrine: f/u bg Musculoskeletal: avoid deconditioning Psych/Social: daugther expressed understanding. Supportive and preventative care as ordered. Vaccine: received flu already SUP: H2 VTE prophylaxis: heparin Baker catheter given critical illness, monitoring needs for accurate assessment of MIGUEL and KDIGO criteria for critically ill patients and to avoid potential harms of urinary retention, skin breakdown/ulcers. Disposition: ICU Code Status: DNR Critical Care Time: 35min Brayan Villeda DO
[2017-08-05] MEDS: Atorvastatin* 40 MG TAB PO SCH (18:41)
[2017-08-05] MEDS ORDERED: Metoprolol Tartrate IV* 1 MG/ML 5 ML VIAL IV PRN (18:47)
[2017-08-05] MEDS: Metoprolol Tartrate TAB* 25 MG PO SCH (20:27)
[2017-08-06] MEDS: Heparin VIAL(*) 5000 UNITS/ML VIAL (FIVE THOUSAND) SUBCUT SCH ×3 (05:47→21:46)
[2017-08-06] MEDS: Clopidogrel TAB* 75 MG PO SCH (10:19)
[2017-08-06] MEDS: Aspirin EC Low Dose* 81 MG TAB.EC PO SCH (10:19)
[2017-08-06] MEDS ORDERED: Metoprolol Tartrate TAB* 50 mg ONE (10:25)
[2017-08-06] MEDS: Metoprolol Tartrate TAB* 50 mg PO SCH ×3 (10:27→21:45)
[2017-08-06] MEDS: Metoprolol Tartrate TAB* 25 MG PO SCH (10:30)
[2017-08-06] MEDS: Famotidine SUSP* 40 MG/5 ML ORAL.SYRIN G TUBE SCH (10:30)
--- NOTE | 2017-08-06 11:49 | PN ---
Progress Note - Progress Note Date of Service: 08/06/17 Note: CRITICAL CARE MEDICINE Date: 08/06/17 Time: 1000 SUBJECTIVE: Patient seen and examined. daughter at bedside. PHYSICAL EXAM: Vital Signs: Reviewed. Hr 90s but into 100s. bp stable. 4L coming down. Neurologic: communicating. mild delirium. HEENT: pupils equal. Sclera anicteric. Trachea midline. Cardiovascular: S1 S2, 3/6 mathew Respiratory: distant, bl rhonchi and expiratory wheeze that coughing is helping Abdomen: Soft, obese, same distension. nt. Extremities: Warm. Access: piv LABS: Reviewed. IMAGING: Reviewed. MEDICATIONS: Reviewed. ASSESSMENT: 87 M Influenza A pna Acute hypoxic resp failure Afib with rvr on admission (previously on anticoag) NSTEMI - sec to demand ischemia Acute on chronic systolic heart failure, with Thrombocytopenia sec to inflamm consumption CAD (h/o 9 stents) H/o GIB (when on anticoag) PLAN: Neurologic: communicating. avoid rx if able but if needed can consider low dose haldol and rather avoid benzos Cardiovascular: Perfusing.may have some volume he can spare still. augment with diuretic. push bb up a touch more. can consider acei/arb need beyond that as needed. will need cards f/u if pt would be willing to consider cath next week. asa/plavix/statin Respiratory: pulm toilet needs still; should keep getting better but needs time for flu secretion clearance. flutter. nebs prn. Gastrointestinal: advance po Renal/Metabolic: stable. baker out later. replete k with diuretics. Infectious Disease: tamiflu for 5 days total. Hematology: asa, plavix. hsq Endocrine: stable Musculoskeletal: oob; pt eval Psych/Social: pt and daugther expressed understanding. Supportive and preventative care as ordered. Disposition: ICU today and potential floor later or moreso tomorrow when showing stability and improvement Code Status: DNR Critical Care Time: 30min FSamantha Villeda DO
[2017-08-06] MEDS ORDERED: Furosemide IV* 10 MG/ML VIAL (40 MG) IV SLOW PU ONE (12:00)
[2017-08-06] MEDS: Potassium Chlor TAB* 20 MEQ TAB.ER PO SCH ×2 (12:57→21:42)
[2017-08-06] MEDS: Oseltamivir CAP* 75 MG CAP PO SCH ×2 (12:57→21:46)
[2017-08-06] MEDS: Oseltamivir SUSP 75 MG dose* 75 MG/12.5 ML ORAL.SYRIN PO SCH (13:05)
[2017-08-06] MEDS: Atorvastatin* 40 MG TAB PO SCH (17:03)
[2017-08-07] MEDS: Heparin VIAL(*) 5000 UNITS/ML VIAL (FIVE THOUSAND) SUBCUT SCH ×3 (05:05→21:11)
[2017-08-07 05:34] LABS: ABS Basophils 0 10^3/ul (0-0.2); ABS Eosinophils 0.2 10^3/ul (0-0.6); ABS Lymphocytes 0.9 10^3/ul (1.0-4.8); ABS Monocytes 1.3 10^3/ul (0-0.8); ABS Neutrophils 4.9 10^3/ul (1.5-7.7); ABS Nucleated RBC 0 10^3/ul; Eosinophil % 2.4 % (0-6); Hematocrit 38 % (42-52); Hemoglobin 12.9 g/dl (14.0-18.0); Lymphocyte % 11.8 % (25-47); Mean Corpuscular HGB Conc 34 g/dl (31-36); Mean Corpuscular Hemoglobin 32 pg (27-31); Mean Corpuscular Volume 95 fL (80-94); Mean Platelet Volume 10.9 um3 (7.4-10.4); Nucleated Red Blood Cells % 0.1; Platelet Count 98 10^3/ul (150-450); Red Blood Count 4.04 10^6/ul (4.0-5.4); Red Cell Distribution Width 14 % (10.5-15); White Blood Count 7.4 10^3/ul (3.5-10.8)
[2017-08-07 05:43] LABS: EGFR Non-African American 118.3 (>60)
[2017-08-07] MEDS: Albuterol/Ipratropium NEB.SOL* Albuterol 2.5 MG/Ipratropium 0.5 MG 3 ML INH PRN ×2 (06:15→15:18)
[2017-08-07] MEDS: Metoprolol Tartrate TAB* 50 mg PO SCH ×3 (08:52→21:11)
[2017-08-07] MEDS: Oseltamivir CAP* 75 MG CAP PO SCH (08:52)
[2017-08-07] MEDS: Aspirin EC Low Dose* 81 MG TAB.EC PO SCH (08:52)
[2017-08-07] MEDS: Clopidogrel TAB* 75 MG PO SCH (08:52)
--- NOTE | 2017-08-07 12:03 | RAD ---
HISTORY: Cough COMPARISONS: August 03, 2017 VIEWS: 2: Frontal and lateral views of the chest. FINDINGS: CARDIOMEDIASTINAL SILHOUETTE: The cardiac silhouette is enlarged. The cardiomediastinal silhouette is otherwise normal. GURDEEP: The gurdeep are normal. PLEURA: There are small bilateral pleural effusions. There is elevation of the right hemidiaphragm. LUNG PARENCHYMA: There is diffuse reticular pattern with indistinct pulmonary vessels. There is improved aeration compared to the previous examination. ABDOMEN: The upper abdomen is clear. There is no subphrenic gas. BONES AND SOFT TISSUES: No bone or soft tissue abnormalities are noted. OTHER: None. IMPRESSION: 1. CARDIOMEGALY. 2. PULMONARY INTERSTITIAL EDEMA, IMPROVED FROM THE PREVIOUS EXAMINATION. 3. SMALL BILATERAL PLEURAL EFFUSIONS. 4. ELEVATION OF THE LEFT HEMIDIAPHRAGM.
[2017-08-07] MEDS: Atorvastatin* 40 MG TAB PO SCH (17:10)
--- NOTE | 2017-08-07 21:22 | CONS ---
CC: Dr. Shante Reyes; Dr. Chaney. CARDIOLOGY CONSULTATION NOTE: DATE OF CONSULT: REQUESTING PHYSICIAN: Shante Reyes MD. REASON FOR EVALUATION: Troponin elevation, coronary artery disease, aortic stenosis. HISTORY OF PRESENT ILLNESS: This is a very pleasant 87-year-old gentleman who is followed by Dr. Reyes and Dr. Chaney for longstanding history of coronary artery disease. He is limited by musculoskeletal issues and dyspnea. He is able to use a walker and goes down a flight of stairs in his house and out to the garage and back, it takes him about 10 minutes to do that walk and he gets winded. There has been no significant change in his ability to do that. However, he developed worsening shortness of breath and was admitted in respiratory distress on 08/02/17. At that point, he was felt to have the flu and required intubation. He also had a non-ST elevation MA with elevation of his troponins. He was extubated a couple of days ago and now is on the floor and there is a question of whether he needs further cardiac evaluation prior to discharge. He is feeling fairly weak. He has trouble standing due to fatigue. He denies any chest pain, orthopnea, peripheral edema. No syncope or near syncope. No bleeding problems. PAST MEDICAL HISTORY: Includes hypertension; hyperlipidemia; tobacco use, discontinued 17 years ago after 3 packs per day for many decades. He has moderate , CHF, anemia. PAST SURGICAL HISTORY: Includes multiple stents, he was offered coronary bypass grafting 6 years ago but declined. His most recent revascularization was in March 2016, at that point he had a moderate nondominant circumflex with 80% tubular stenosis, jailing of a small OM branch. He had a drug-eluting stent placed 2.75 x 12 mm with improvement in his symptoms. MEDICATIONS: As inpatient include: 1. Acetaminophen. 2. Maalox. 3. Albuterol. 4. Aspirin 81 mg a day. 5. Atorvastatin 40 mg a day. 6. Plavix 75 mg a day. 7. Colace 100 mg b.i.d. 8. Heparin 5000 units subcu. 9. Metoprolol 50 mg t.i.d. 10. Zofran 4 mg IV q.4 p.r.n. 11. Senna 1 tab b.i.d. 12. Nitroglycerin. At home, he was on: 1. Simvastatin. 2. Furosemide 40 mg daily. 3. Doxycycline 100 mg b.i.d. 4. Potassium 20 mEq a day. 5. Clopidogrel 75 mg a day. 6. Nitroglycerin. ALLERGIES: Include LATEX, AMBIEN with mental changes and NIACIN. FAMILY HISTORY: He had a brother who had biopsy surgery in his 50s, one brother who had an MA. SOCIAL HISTORY: He is for the last 4 years. 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 He had 2 sons who are and he has 2 daughters. He lives with his daughter Aleja who is present. He has one glass of wine a day. He has decaffeinated coffee. REVIEW OF SYSTEMS: Review of systems x10 was negative except as above. PHYSICAL EXAM: On physical exam, he is a well-developed, well-nourished gentleman, obese, no apparent distress. O2 sats are 100% on 4 L nasal cannula. Blood pressure 110/60, heart rate of 87, temperature 98.3. Atraumatic, normocephalic. Extraocular muscles intact. Sclerae anicteric. Carotids somewhat delayed and diminished with transmitted murmurs or bruits bilaterally. No cervical adenopathy or thyromegaly. Cardiac Exam: S1, S2 with a harsh late peaking 2/6 systolic ejection murmur heard at the base and radiating across the precordium. Chest: Scattered wheezes and right-sided rhonchi. Abdomen: Bowel sounds present, nontender. Femoral pulses intact without bruits. Distal pulses intact. No edema. Motor strength 5/5 bilaterally. Deep tendon reflexes 2/4 in the upper extremities, 1/4 in the lower extremities. Alert and oriented x3. Decreased hearing. DIAGNOSTIC STUDIES/LAB DATA: Includes white count of 7.4, down from 15.9 on admission, hematocrit of 38, platelet count decreased at 98. Chemistry: Sodium 134, potassium of 4.2, BUN of 23, creatinine of 0.64. Troponin peaked at 6.76 on 08/03/17, and is down to 1.32 now. CRP elevated at 76.5. Chest x-ray from today revealed pulmonary interstitial edema, improved from previous, small bilateral pleural effusions, elevation of left hemidiaphragm. Echocardiogram from 08/03/17, revealed moderate LVH with focal wall motion abnormality, EF of 50% to 55%, mid inferior and apical inferior segments were hypokinetic, mild left atrial enlargement, trace to mild MR, trace TR, aortic stenosis with mild AI, at least moderate aortic stenosis, mean gradient of 17, aortic valve area by continuity is 0.8 cm2, trace TR, trace PI. Compared to the study of October 2015, the LVH is slightly low but the aortic stenosis is about the same. Of note, in October 2015, echo revealed peak velocity of 3.3 m/sec, mean gradient at 23, valve area by VTI was 1.2 cm2 raising the possibility of mild progression. IMPRESSION: My impression is that Mr. Raygoza is an 87-year-old gentleman with a history of coronary disease, aortic stenosis, tobacco use, recent hospitalization for the fluid requiring intubation, he seems to be improving, but is still debilitated. He had a non-ST elevation myocardial infarction this admission. It is unclear whether this is due to the stress of the situation with demand ischemia and infarct or whether he has had progression of his coronary disease. Given his advanced age, multiple comorbidities, and his concerns about avoiding intubation and heroic measures, he would like to continue with conservative course for now. I did suggest that we obtain a nuclear stress test to see if there has been significant progression of this ischemia. I also suggested that he follow up with Dr. Chaney to consider the possibility that his aortic stenosis may have progressed to the point where it may be causing some symptoms and it is difficult to evaluate this at present. At some point, he might benefit from transesophageal echo to better define the degree of stenosis. We will continue his beta-wes, aspirin and clopidogrel. The echo report made mention of a history of atrial fibrillation, although I cannot confirm that by Dr. Chaney's records. He did have a cardioversion in April 2014. The risks, benefits of triple therapy have to be weighed. He certainly is at increased risk for cardioembolic events if he has recurrent atrial fibrillation, but he also is at increased risk for bleeding on aspirin and Plavix. Given his recent myocardial infarction, we will continue beta-blockers, aspirin and Plavix for now. addendum: ekg 3does suggest atrial flutter, ns st/t changes similar to 3.20.18; given risks of bleeding on triple rx, will continue asa/plavix for now [id number]/[facility] #: [id number] [facility] [place]
[2017-08-08] MEDS: Docusate CAP* 100 MG PO PRN ×2 (03:11→21:09)
[2017-08-08] MEDS: Acetaminophen TAB* 325 MG PO PRN (03:11)
[2017-08-08] MEDS: Heparin VIAL(*) 5000 UNITS/ML VIAL (FIVE THOUSAND) SUBCUT SCH ×3 (05:02→21:09)
[2017-08-08 05:35] LABS: ABS Basophils 0.1 10^3/ul (0-0.2); ABS Eosinophils 0.2 10^3/ul (0-0.6); ABS Monocytes 1.2 10^3/ul (0-0.8); ABS Neutrophils 4.4 10^3/ul (1.5-7.7); ABS Nucleated RBC 0 10^3/ul; Eosinophil % 3.1 % (0-6); Hematocrit 38 % (42-52); Hemoglobin 12.6 g/dl (14.0-18.0); Mean Corpuscular HGB Conc 34 g/dl (31-36); Mean Corpuscular Hemoglobin 32 pg (27-31); Mean Corpuscular Volume 94 fL (80-94); Mean Platelet Volume 10.8 um3 (7.4-10.4); Nucleated Red Blood Cells % 0.2; Platelet Count 100 10^3/ul (150-450); Red Blood Count 3.98 10^6/ul (4.0-5.4); Red Cell Distribution Width 14 % (10.5-15); White Blood Count 6.9 10^3/ul (3.5-10.8)
[2017-08-08 05:52] LABS: EGFR Non-African American 112.2 (>60)
[2017-08-08] MEDS: Metoprolol Tartrate TAB* 50 mg PO SCH ×2 (08:30→13:18)
[2017-08-08] MEDS: Aspirin EC Low Dose* 81 MG TAB.EC PO SCH (08:30)
[2017-08-08] MEDS: Clopidogrel TAB* 75 MG PO SCH (08:30)
--- NOTE | 2017-08-08 11:13 | PN ---
Subjective - Subjective Reason for Note: Progress Note History: I am assuming care of this patient from Dr. Shante Reyes who is out of town. She signed him out to me and I have reviewed the EHR in detail. He is recovering from influenza A. This was complicated by respiratory and cardiac failure - the latter is described by Dr. Villeda as type [address] Chacon as a NSTEMI. He is improving, but remains generally weak. He had no fever, shakes, body aches. He is eating and drinking with good appetite and had a bowel movement today. He coughs and brings up sputum. He sleeps poorly - but this is not new - often naps during the day at home. He is in no distress and feels he is getting better. His daughter Bee also indicates this. 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 Aortic stenosis (Chronic) I35.0 Coronary artery disease (Chronic) I25.10 Gastro-esophageal reflux (Chronic) K21.9 Hypercholesteremia (Chronic) E78.0 Stented coronary artery (Chronic) Z95.5 Current Medications: Current Medications Acetaminophen (Tylenol Tab*) 650 mg PO Q4H PRN PRN Reason: FEVER/PAIN Last Admin: 08/08/17 03:11 Dose: 650 mg Al Hydrox/Mg Hydrox/Simethicone (Maalox Plus*) 30 ml PO Q6H PRN PRN Reason: INDIGESTION Albuterol/Ipratropium (Duoneb (Albuterol 2.5 Mg/Ipratropium 0.5 Mg)) 1 neb INH Q4H PRN PRN Reason: SOB/WHEEZING Last Admin: 08/07/17 15:18 Dose: 1 neb Aspirin (Aspirin Ec Low Dose*) 81 mg PO QAM [facility] Last Admin: 08/08/17 08:30 Dose: 81 mg Atorvastatin Calcium (Lipitor*) 40 mg PO 1700 [facility] Last Admin: 08/07/17 17:10 Dose: 40 mg Clopidogrel Bisulfate (Plavix Tab*) 75 mg PO DAILY [facility] Last Admin: 08/08/17 08:30 Dose: 75 mg Docusate Sodium (Colace Cap*) 100 mg PO BID PRN PRN Reason: CONSTIPATION Last Admin: 08/08/17 03:11 Dose: 100 mg Heparin Sodium (Porcine) (Heparin Vial(*)) 5,000 units SUBCUT Q8HR [facility] Last Admin: 08/08/17 05:02 Dose: 5,000 units Metoprolol Tartrate (Lopressor Iv*) 5 mg IV Q6H PRN PRN Reason: HEART RATE/PULSE GREATER THAN: Metoprolol Tartrate (Lopressor Tab*) 50 mg PO TID [facility] Last Admin: 08/08/17 08:30 Dose: 50 mg Ondansetron HCl (Zofran Inj*) 4 mg IV Q4H PRN PRN Reason: NAUSEA/VOMITING Senna (Senokot Tab*) 1 tab PO BID PRN PRN Reason: CONSTIPATION Home Medications: Home Medications Medication Instructions Recorded Confirmed Type Metoprolol Tartrate TAB* 25 mg PO BID 10/22/13 08/02/17 History [Lopressor TAB*] Furosemide TAB* [Lasix TAB*] 40 - 1,200 mg PO DAILY 06/18/15 08/02/17 History Clopidogrel TAB* [Plavix TAB*] 75 mg PO DAILY 03/27/16 08/02/17 History Potassium Chlor TAB* [Potassium 20 meq PO DAILY 03/27/16 08/02/17 History Chlor TAB 20 MEQ*] Aspirin EC Low Dose* [Ecotrin EC 81 mg PO QAM 08/02/17 08/02/17 History Low Dose 81 MG*] DOXYcycline CAP(*) [DOXYcycline 100 mg PO BID 08/02/17 08/02/17 History 100MG CAP(*)] Multivitamins/Minerals TAB* 1 tab PO DAILY 08/02/17 08/02/17 History [Theragran/minerals TAB*] Nitroglycerin TAB 0.4 MG* 0.4 mg SL Q5M PRN 08/02/17 08/02/17 History Simvastatin (NF) [Zocor (NF)] 40 mg PO QPM 08/02/17 08/02/17 History Allergies: Allergies Allergy/AdvReac Type Severity Reaction Status Date / Time latex Allergy Severe Rash And Verified 08/02/17 23:06 Itching niacin Allergy Severe See Comment Verified 08/02/17 23:06 zolpidem Allergy Anxiety Verified 08/02/17 23:06 Objective - Vital Signs Vital Signs: Vital Signs 08/07/17 08/07/17 08/07/17 11:11 15:15 16:07 Temperature 98.3 F 98.5 F Pulse Rate 87 88 79 Respiratory 16 12 Rate Blood Pressure 110/60 107/53 (mmHg) O2 Sat by Pulse 100 98 97 Oximetry 08/07/17 08/07/17 08/07/17 19:39 20:00 23:31 Temperature 97.5 F 98.0 F Pulse Rate 70 88 Respiratory 20 20 24 Rate Blood Pressure 143/59 126/62 (mmHg) O2 Sat by Pulse 94 100 Oximetry 08/08/17 08/08/17 08/08/17 03:13 08:00 08:06 Temperature 98.0 F 98.4 F Pulse Rate 93 101 Respiratory 22 22 20 Rate Blood Pressure 118/74 114/66 (mmHg) O2 Sat by Pulse 100 97 Oximetry 08/08/17 09:01 Temperature Pulse Rate 93 Respiratory 16 Rate Blood Pressure (mmHg) O2 Sat by Pulse 97 Oximetry - Intake and Output Intake and Output: Intake & Output 08/05/17 08/06/17 08/07/17 08/08/17 11:59 11:59 11:59 11:59 Intake Total 1750 1481 1220 880 Output Total 1700 1550 700 200 Balance 50 -69 520 680 Intake: IV Fluids 166 NS 166 IVPB 100 Levofloxacin 100 Medicated IV 333 68 Propofol 333 68 Oral 320 1220 880 Tube Feeding 1101 1093 Tube Feeding Flush Amount 50 Output: Urine 200 James 1700 1550 700 Other: Estimated Void Medium Medium Date of Last Bowel 08/05/17 Movement # Bowel Movements 1 0 1 Estimated Stool Amount Small Medium # Voids 1 3 ADLs: Meal Record Start: 08/02/17 23: 23 Freq: ,,18 Status: Complete Protocol: Document 08/03/17 09:00 [id number] (Rec: 08/03/17 09:11 [id number] ICU-C15) Document 08/03/17 13:00 [id number] (Rec: 08/03/17 13:18 [id number] ICU-C15) Document 08/03/17 18:00 [id number] (Rec: 08/03/17 18:41 [id number] ICU-C10) Document 08/04/17 08:48 [id number] (Rec: 08/04/17 08:48 XOC1814 ICU-C14) Document 08/04/17 12:09 BBC6525 (Rec: 08/04/17 12:09 FPY0073 ICU-C14) Document 08/04/17 18:00 JEO6603 (Rec: 08/04/17 18:18 JEI0876 ICU-M21) Document 08/05/17 09:00 CIK6298 (Rec: 08/05/17 10:54 DVS2008 ICU-C16) Document 08/05/17 13:00 POX9704 (Rec: 08/05/17 18:34 ELH1595 ICU-C16) Document 08/05/17 18:00 RPH3743 (Rec: 08/05/17 19:02 UOB0251 ICU-C16) Document 08/06/17 09:00 YHW5054 (Rec: 08/06/17 14:38 WMO9825 ICU-C16) Document 08/06/17 13:00 [id number] (Rec: 08/06/17 14:38 JOD1818 ICU-C16) ADLs: Meal Record Start: 08/06/17 15: 57 Freq: DAILY@0900,1400,1800 Status: Active Protocol: Created 08/06/17 15:57 [id number] (Rec: 08/06/17 15:57 RYB8676 TELE-C08) Document 08/06/17 18:00 JMP8148 (Rec: 08/06/17 22:44 VDY1968 TELE-C06) Document 08/07/17 09:00 KTF1047 (Rec: 08/07/17 09:01 YMI5611 TELE-C02) Document 08/07/17 09:56 GOQ2002 (Rec: 08/07/17 09:57 QSS0121 TELE-C07) Document 08/07/17 13:37 ZON9574 (Rec: 08/07/17 13:39 IHW7676 TELE-C07) Document 08/07/17 18:00 CLH7248 (Rec: 08/07/17 22:34 DLX2558 TELE-C08) Intake and Output Start: 08/02/17 23: 23 Freq: 06,14,22 Status: Complete Protocol: Document 08/03/17 05:27 IUD0502 (Rec: 08/03/17 05:27 ZQJ2941 ICU-C15) Document 08/03/17 13:46 VEN7106 (Rec: 08/03/17 13:46 OBO4088 ICU-C15) Document 08/03/17 14:47 YPJ1933 (Rec: 08/03/17 14:47 VOS1705 ICU-C15) Document 08/03/17 21:33 UUQ0079 (Rec: 08/03/17 21:33 GZY2914 ICU-C10) Document 08/03/17 21:33 JOE0808 (Rec: 08/03/17 21:33 ABD2197 ICU-C10) Document 08/04/17 05:33 WAJ9239 (Rec: 08/04/17 05:33 UNV7700 ICU-C20) Document 08/04/17 14:00 CGF6772 (Rec: 08/04/17 15:23 SUF9125 ICU-M21) Document 08/04/17 20:10 QIG3753 (Rec: 08/05/17 03:40 AZI0363 ICU-C06) Document 08/04/17 21:36 LHN1419 (Rec: 08/04/17 21:36 DWV2882 ICU-C15) Document 08/05/17 05:25 CTW9466 (Rec: 08/05/17 05:25 UBV0499 ICU-M21) Document 08/05/17 14:00 XGV3165 (Rec: 08/05/17 18:33 SGG0225 ICU-C16) Document 08/05/17 15:00 PQY6530 (Rec: 08/05/17 18:34 WLS7680 ICU-C16) Document 08/05/17 21:38 IKL2215 (Rec: 08/05/17 21:38 ULZ5846 ICU-C20) Document 08/05/17 23:42 NRH8763 (Rec: 08/05/17 23:42 NQO8934 ICU-C20) Document 08/06/17 05:28 UKC4954 (Rec: 08/06/17 05:28 BKW0893 ICU-C20) Document 08/06/17 14:00 CFR1704 (Rec: 08/06/17 14:14 XTO1671 ICU-C20) Intake and Output Start: 08/06/17 15: 57 Freq: DAILY@0600,1400,2200 Status: Active Protocol: Created 08/06/17 15:57 IWF6917 (Rec: 08/06/17 15:57 NXN5362 TELE-C08) Document 08/06/17 22:00 GVF2654 (Rec: 08/06/17 22:46 NMT0642 TELE-C06) Document 08/07/17 05:38 MZA1090 (Rec: 08/07/17 05:40 YMY3134 TELE-C35) Document 08/07/17 13:39 PRX7168 (Rec: 08/07/17 13:39 HRY9436 TELE-C07) Document 08/07/17 15:46 KNV7373 (Rec: 08/07/17 15:46 LNP1479 TELE-C02) Document 08/07/17 22:00 ILD0545 (Rec: 08/07/17 22:36 APE7343 TELE-C08) Document 08/08/17 05:58 CLA8773 (Rec: 08/08/17 05:59 OVV5765 TELE-C08) - Physical Exam General: No Cyanosis, No Anemia, No Jaundice, No Clubbing Lungs and Chest: Yes: Chest Expansion Full, Vessicular Breath Sounds - right base good air entry., Wheezes. No: Chest Expansion Symetrica, Percussion Note Resonant - elevated left hemidiaphragm - left base/mid zone dull to percurssion , Crackles, Respiratory Distress, Use of Accessory Muscles Heart Rate and Rhythm: Regular JVP: Not Elevated Additional Cardiovascular: Yes: Normal Heart Sounds, Heart Murmur. No: Pedal Edema Abdominal Exam: Yes: Soft, Bowel Sounds Present. No: Distention, Hepatomegaly, Abdominal Tenderness - Extremities Cranial Nerves II-XII Intact: Yes Limbs: Abnormal Power - general weakness - Neuro Orientation: A/O x3 Speech: Normal Results - Results Lab Results: Laboratory Results - last 24 hr 08/07/17 08/07/17 08/08/17 05:15 05:15 05:17 WBC 6.9 RBC 3.98 L Hgb 12.6 L Hct 38 L MCV 94 MCH 32 H MCHC 34 RDW 14 Plt Count 100 L MPV 10.8 H Neut % (Auto) 64.4 Lymph % (Auto) 14.0 L [place] % (Auto) 17.7 H Eos % (Auto) 3.1 Baso % (Auto) 0.8 Absolute Neuts (auto) 4.4 Absolute Lymphs (auto) 1.0 Absolute Monos (auto) 1.2 H Absolute Eos (auto) 0.2 Absolute Basos (auto) 0.1 Absolute Nucleated RBC 0 Nucleated RBC % 0.2 Sodium 134 Potassium 4.2 Chloride 100 L Carbon Dioxide 30 Anion Gap 4 BUN 23 Creatinine 0.64 L Est GFR ( Amer) 152.1 Est GFR (Non-Af Amer) 118.3 BUN/Creatinine Ratio 35.9 H Glucose 108 H Calcium 9.1 Phosphorus 3.0 Magnesium 2.2 Total Bilirubin 0.80 Direct Bilirubin 0.30 H Indirect Bilirubin 0.5 AST 36 ALT 30 Alkaline Phosphatase 38 Troponin I 1.32 H* C-Reactive Protein 76.52 H Total Protein 6.9 Albumin 3.7 Globulin 3.2 Albumin/Globulin Ratio 1.2 Procalcitonin < 0.1 08/08/17 05:17 WBC RBC Hgb Hct MCV MCH MCHC RDW Plt Count MPV Neut % (Auto) Lymph % (Auto) [place] % (Auto) Eos % (Auto) Baso % (Auto) Absolute Neuts (auto) Absolute Lymphs (auto) Absolute Monos (auto) Absolute Eos (auto) Absolute Basos (auto) Absolute Nucleated RBC Nucleated RBC % Sodium 135 Potassium 4.0 Chloride 101 Carbon Dioxide 29 Anion Gap 5 BUN 23 Creatinine 0.67 Est GFR ( Amer) 144.3 Est GFR (Non-Af Amer) 112.2 BUN/Creatinine Ratio 34.3 H Glucose 116 H Calcium 9.1 Phosphorus Magnesium Total Bilirubin 0.60 Direct Bilirubin Indirect Bilirubin AST 34 ALT 34 Alkaline Phosphatase 42 Troponin I C-Reactive Protein 37.88 H Total Protein 6.7 Albumin 3.5 Globulin 3.2 Albumin/Globulin Ratio 1.1 Procalcitonin Radiology Results: Patient Name: AVEL JAMES Medical Record#: [id number] Ordering Physician: Shante Reyes MD Acct.#: [id number] : 1930 Age: 87 Sex: M Location: [address] [place] [address]/TELEMETRY Exam Date: 08/07/17 1057 ADM Status: ADM IN Order Information: CHEST PA & LAT 2 VWS Accession Number: [id number] CPT: 24176 HISTORY: Cough COMPARISONS: August 03, 2017 VIEWS: 2: Frontal and lateral views of the chest. FINDINGS: CARDIOMEDIASTINAL SILHOUETTE: The cardiac silhouette is enlarged. The cardiomediastinal silhouette is otherwise normal. HELENE: The helene are normal. PLEURA: There are small bilateral pleural effusions. There is elevation of the right hemidiaphragm. LUNG PARENCHYMA: There is diffuse reticular pattern with indistinct pulmonary vessels. There is improved aeration compared to the previous examination. ABDOMEN: The upper abdomen is clear. There is no subphrenic gas. BONES AND SOFT TISSUES: No bone or soft tissue abnormalities are noted. OTHER: None. IMPRESSION: 1. CARDIOMEGALY. 2. PULMONARY INTERSTITIAL EDEMA, IMPROVED FROM THE PREVIOUS EXAMINATION. 3. SMALL BILATERAL PLEURAL EFFUSIONS. 4. ELEVATION OF THE LEFT HEMIDIAPHRAGM. <Electronically signed by Florentino Hernandez MD in OV> 08/07/17 1200 Dictated By: Florentino Hernandez MD Dictated Date/Time: 08/07/17 1200 Transcribed Date/Time: 08/07/17 1159 Copy to: CC:Shante Reyes MD; Raymundo Chacon MD; Davina Burks DO Imaging - [facility] Imaging [facility] [address] [address] ph [phone]) ph ([phone]) ph ([phone]) 1 of 1 Assessment - Problem List Assessment: Patient Problems Dyspnea (Acute) Influenza A (Acute) Subendocardial infarction (Acute) Weakness (Acute) Acquired elevated hemidiaphragm (Chronic) Aortic stenosis (Chronic) Coronary artery disease (Chronic) Gastro-esophageal reflux (Chronic) Hypercholesteremia (Chronic) Stented coronary artery (Chronic) CHF (congestive heart failure) (Acute) CHF exacerbation (Acute 07/09/15) Hyperlipidemia (Chronic 05/12/14) Plan: Influenza A (Acute) He is recovering. There is no evidence of a secondary bacterial infection - the CRP is coming down Subendocardial infarction (Acute)CHF exacerbation (Acute 07/09/15) I reviewed Dr. Chacon's detailed consultation. He is setting up a comprehensive cardiac work up. Weakness (Acute) I will ask PT/OT and refer him for a PMRU consultation Acquired elevated hemidiaphragm (Chronic) persistent Coronary artery disease (Chronic) For work up. Aortic stenosis: Dr. Chacon is considering if this has progressed Gastro-esophageal reflux (Chronic) secondary diagnosis Hypercholesteremia (Chronic) secondary diagnosis Stented coronary artery (Chronic) secondary diagnosis CHF (congestive heart failure) (Acute) secondary diagnosis DVT prophylaxis (Acute 05/12/14) Dyspnea (Acute) improved Hyperlipidemia (Acute 05/12/14) CHF exacerbation (Acute 07/09/15) Review of medication: Acetaminophen - continue Maalox Plus continue Albuterol/Ipratropium continue Asa continue Atorvastatin continue clopidogrel continue Docusate sodium continue Metoprolol continue tablets Odansetron stop Senna continue Discussion with patient and daughter: I told them he is improving from the pneumonia. The remaining major medical issue is the management of his CAD and aortic valve disease. Dr. Chacon has ordered a chemical NM stress test. I explained this can be done now, or delayed. If positive, he might require a coronary angiogram. I discussed the option of delaying this until after he has recovered. They decided to go along with Dr. Chacon's advice as it was more conservative Dr. Chaney's suggestion when he was more critically ill. (he though he should have an angiogram right away).
[2017-08-08] MEDS ORDERED: Furosemide IV* 10 MG/ML 2 ML VIAL (20 MG) IV ONE (15:49)
[2017-08-08] MEDS: Atorvastatin* 40 MG TAB PO SCH (16:28)
[2017-08-08] MEDS ORDERED: Metoprolol Succinate XL TAB* 25 MG PO ONE (17:00)
[2017-08-09] MEDS: Heparin VIAL(*) 5000 UNITS/ML VIAL (FIVE THOUSAND) SUBCUT SCH ×2 (05:59→14:11)
[2017-08-09 06:14] LABS: ABS Basophils 0.1 10^3/ul (0-0.2); ABS Eosinophils 0.2 10^3/ul (0-0.6); ABS Lymphocytes 0.9 10^3/ul (1.0-4.8); ABS Neutrophils 4.5 10^3/ul (1.5-7.7); ABS Nucleated RBC 0 10^3/ul; Eosinophil % 2.7 % (0-6); Lymphocyte % 13.9 % (25-47); Nucleated Red Blood Cells % 0.2
[2017-08-09 06:25] LABS: EGFR Non-African American 108.5 (>60)
--- NOTE | 2017-08-09 08:09 | PN ---
Subjective - Subjective History: He continues to have a productive cough. He denies dyspnea, chest pain or palpitations. He has had no fevers/sweats or chills. He has no aches or pains. 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 Aortic stenosis (Chronic) I35.0 Coronary artery disease (Chronic) I25.10 Gastro-esophageal reflux (Chronic) K21.9 Hypercholesteremia (Chronic) E78.0 Stented coronary artery (Chronic) Z95.5 Current Medications: Current Medications Acetaminophen (Tylenol Tab*) 650 mg PO Q4H PRN PRN Reason: FEVER/PAIN Last Admin: 08/08/17 03:11 Dose: 650 mg Al Hydrox/Mg Hydrox/Simethicone (Maalox Plus*) 30 ml PO Q6H PRN PRN Reason: INDIGESTION Albuterol/Ipratropium (Duoneb (Albuterol 2.5 Mg/Ipratropium 0.5 Mg)) 1 neb INH Q4H PRN PRN Reason: SOB/WHEEZING Last Admin: 08/07/17 15:18 Dose: 1 neb Aspirin (Aspirin Ec Low Dose*) 81 mg PO QAM [facility] [place] Last Admin: 08/08/17 08:30 Dose: 81 mg Atorvastatin Calcium (Lipitor*) 40 mg PO 1700 [facility] [place] Last Admin: 08/08/17 16:28 Dose: 40 mg Clopidogrel Bisulfate (Plavix Tab*) 75 mg PO DAILY [facility] [place] Last Admin: 08/08/17 08:30 Dose: 75 mg Docusate Sodium (Colace Cap*) 100 mg PO BID PRN PRN Reason: CONSTIPATION Last Admin: 08/08/17 21:09 Dose: 100 mg Heparin Sodium (Porcine) (Heparin Vial(*)) 5,000 units SUBCUT Q8HR [facility] [place] Last Admin: 08/09/17 05:59 Dose: 5,000 units Metoprolol Succinate (Toprol Xl Tab*) 25 mg PO BID [facility] [place] Ondansetron HCl (Zofran Inj*) 4 mg IV Q4H PRN PRN Reason: NAUSEA/VOMITING Senna (Senokot Tab*) 1 tab PO BID PRN PRN Reason: CONSTIPATION Home Medications: Home Medications Medication Instructions Recorded Confirmed Type Metoprolol Tartrate TAB* 25 mg PO BID 10/22/13 08/02/17 History [Lopressor TAB*] Furosemide TAB* [Lasix TAB*] 40 - 1,200 mg PO DAILY 06/18/15 08/02/17 History Clopidogrel TAB* [Plavix TAB*] 75 mg PO DAILY 03/27/16 08/02/17 History Potassium Chlor TAB* [Potassium 20 meq PO DAILY 03/27/16 08/02/17 History Chlor TAB 20 MEQ*] Aspirin EC Low Dose* [Ecotrin EC 81 mg PO QAM 08/02/17 08/02/17 History Low Dose 81 MG*] DOXYcycline CAP(*) [DOXYcycline 100 mg PO BID 08/02/17 08/02/17 History 100MG CAP(*)] Multivitamins/Minerals TAB* 1 tab PO DAILY 08/02/17 08/02/17 History [Theragran/minerals TAB*] Nitroglycerin TAB 0.4 MG* 0.4 mg SL Q5M PRN 08/02/17 08/02/17 History Simvastatin (NF) [Zocor (NF)] 40 mg PO QPM 08/02/17 08/02/17 History Allergies: Allergies Allergy/AdvReac Type Severity Reaction Status Date / Time latex Allergy Severe Rash And Verified 08/02/17 23:06 Itching niacin Allergy Severe See Comment Verified 08/02/17 23:06 zolpidem Allergy Anxiety Verified 08/02/17 23:06 Objective - Vital Signs Vital Signs: Vital Signs 08/08/17 08/08/17 08/08/17 08:06 09:01 11:35 Temperature 98.4 F 98.8 F Pulse Rate 101 93 73 Respiratory 20 16 18 Rate Blood Pressure 114/66 109/54 (mmHg) O2 Sat by Pulse 97 97 99 Oximetry 08/08/17 08/08/17 08/08/17 15:21 19:50 21:10 Temperature 98.7 F 98.5 F Pulse Rate 71 84 Respiratory 22 18 18 Rate Blood Pressure 119/73 118/58 (mmHg) O2 Sat by Pulse 100 100 Oximetry 08/09/17 08/09/17 08/09/17 00:27 00:56 04:25 Temperature 98.5 F 98.0 F Pulse Rate 106 102 106 Respiratory 22 14 22 Rate Blood Pressure 124/57 117/71 (mmHg) O2 Sat by Pulse 99 96 99 Oximetry 08/09/17 07:19 Temperature 97.9 F Pulse Rate 99 Respiratory 24 Rate Blood Pressure 114/56 (mmHg) O2 Sat by Pulse 98 Oximetry - Intake and Output Intake and Output: Intake & Output 08/06/17 08/07/17 08/08/17 08/09/17 11:59 11:59 11:59 11:59 Intake Total 1481 1220 1230 170 Output Total 1550 700 200 250 Balance -69 520 1030 -80 Weight 213 lb 14.4 oz Intake: Medicated IV 68 Propofol 68 Oral 320 1220 1230 170 Tube Feeding 1093 Output: Urine 200 250 James 1550 700 Other: Estimated Void Medium Medium Date of Last Bowel 08/05/17 Movement # Bowel Movements 1 0 1 0 Estimated Stool Amount Small Medium Small # Voids 1 3 1 ADLs: Meal Record Start: 08/02/17 23: 23 Freq: 09,13,18 Status: Complete Protocol: Document 08/03/17 09:00 [id number] (Rec: 08/03/17 09:11 [id number] ICU-C15) Document 08/03/17 13:00 [id number] (Rec: 08/03/17 13:18 [id number] ICU-C15) Document 08/03/17 18:00 [id number] (Rec: 08/03/17 18:41 [id number] ICU-C10) Document 08/04/17 08:48 [id number] (Rec: 08/04/17 08:48 [id number] ICU-C14) Document 08/04/17 12:09 [id number] (Rec: 08/04/17 12:09 [id number] ICU-C14) Document 08/04/17 18:00 [id number] (Rec: 08/04/17 18:18 [id number] ICU-M21) Document 08/05/17 09:00 [id number] (Rec: 08/05/17 10:54 [id number] ICU-C16) Document 08/05/17 13:00 [id number] (Rec: 08/05/17 18:34 [id number] ICU-C16) Document 08/05/17 18:00 [id number] (Rec: 08/05/17 19:02 [id number] ICU-C16) Document 08/06/17 09:00 [id number] (Rec: 08/06/17 14:38 [id number] ICU-C16) Document 08/06/17 13:00 [id number] (Rec: 08/06/17 14:38 [id number] ICU-C16) ADLs: Meal Record Start: 08/06/17 15: 57 Freq: DAILY@0900,1400,1800 Status: Active Protocol: Created 08/06/17 15:57 [id number] (Rec: 08/06/17 15:57 BNQ0738 TELE-C08) Document 08/06/17 18:00 [id number] (Rec: 08/06/17 22:44 ZJH4608 TELE-C06) Document 08/07/17 09:00 LIO1453 (Rec: 08/07/17 09:01 SVD5290 TELE-C02) Document 08/07/17 09:56 FLO6103 (Rec: 08/07/17 09:57 RGF8255 TELE-C07) Document 08/07/17 13:37 WQZ3460 (Rec: 08/07/17 13:39 [id number] TELE-C07) Document 08/07/17 18:00 RLB9544 (Rec: 08/07/17 22:34 EGV0317 TELE-C08) Document 08/08/17 09:00 XJH2634 (Rec: 08/08/17 12:49 NCT2679 TELE-C06) Document 08/08/17 12:48 XGO6653 (Rec: 08/08/17 12:49 [id number] TELE-C06) Document 08/08/17 18:00 GJT6654 (Rec: 08/08/17 18:20 HVK9503 TELE-C08) Intake and Output Start: 08/02/17 23: 23 Freq: 06,14,22 Status: Complete Protocol: Document 08/03/17 05:27 [id number] (Rec: 08/03/17 05:27 [id number] ICU-C15) Document 08/03/17 13:46 [id number] (Rec: 08/03/17 13:46 VYO5789 ICU-C15) Document 08/03/17 14:47 [id number] (Rec: 08/03/17 14:47 [id number] ICU-C15) Document 08/03/17 21:33 VPD6642 (Rec: 08/03/17 21:33 ILE1812 ICU-C10) Document 08/03/17 21:33 TNW6858 (Rec: 08/03/17 21:33 LTB3108 ICU-C10) Document 08/04/17 05:33 ZPS3727 (Rec: 08/04/17 05:33 EKR0919 ICU-C20) Document 08/04/17 14:00 [id number] (Rec: 08/04/17 15:23 ONN7561 ICU-M21) Document 08/04/17 20:10 HBO4395 (Rec: 08/05/17 03:40 LUY5527 ICU-C06) Document 08/04/17 21:36 FBF4199 (Rec: 08/04/17 21:36 UIQ9973 ICU-C15) Document 08/05/17 05:25 SZE1278 (Rec: 08/05/17 05:25 [id number] ICU-M21) Document 08/05/17 14:00 TRD6030 (Rec: 08/05/17 18:33 [id number] ICU-C16) Document 08/05/17 15:00 DKP7813 (Rec: 08/05/17 18:34 MJE8462 ICU-C16) Document 08/05/17 21:38 ACM9427 (Rec: 08/05/17 21:38 MWI7339 ICU-C20) Document 08/05/17 23:42 ZIO2528 (Rec: 08/05/17 23:42 [id number] ICU-C20) Document 08/06/17 05:28 XYZ2596 (Rec: 08/06/17 05:28 DJW5028 ICU-C20) Document 08/06/17 14:00 YIE0626 (Rec: 08/06/17 14:14 OBP0585 ICU-C20) Intake and Output Start: 08/06/17 15: 57 Freq: DAILY@0600,1400,2200 Status: Active Protocol: Created 08/06/17 15:57 [id number] (Rec: 08/06/17 15:57 [id number] [facility]-C08) Document 08/06/17 22:00 PIE1793 (Rec: 08/06/17 22:46 HRH9456 TELE-C06) Document 08/07/17 05:38 HCB6150 (Rec: 08/07/17 05:40 HCX7019 TELE-C35) Document 08/07/17 13:39 MCD0609 (Rec: 08/07/17 13:39 FHA9511 TELE-C07) Document 08/07/17 15:46 [id number] (Rec: 08/07/17 15:46 SZQ1557 TELE-C02) Document 08/07/17 22:00 RZK8428 (Rec: 08/07/17 22:36 KCG4256 TELE-C08) Document 08/08/17 05:58 AWZ7790 (Rec: 08/08/17 05:59 ROD4843 TELE-C08) Document 08/08/17 14:00 GVV9112 (Rec: 08/08/17 14:34 DFI3132 TELE-C01) Document 08/08/17 22:00 ZBR1099 (Rec: 08/08/17 22:24 TBQ9103 TELE-C03) Document 08/09/17 06:00 [id number] (Rec: 08/09/17 06:54 ZFE0508 TELE-C35) - Physical Exam General Physical Exam Comment: He is sitting in a chair and looks comfortable without any distress General: No Cyanosis, No Anemia, No Jaundice, No Clubbing Lungs and Chest: Yes: Chest Expansion Full, Wheezes. No: Chest Expansion Symetrica, Percussion Note Resonant - Left hemidiaphragm elevated, Vessicular Breath Sounds - decreased left base, Crackles, Respiratory Distress, Use of Accessory Muscles Heart Rate and Rhythm: Regular Additional Cardiovascular: Yes: Normal Heart Sounds. No: Heart Murmur, Pedal Edema Abdominal Exam: Yes: Soft. No: Distention, Abdominal Tenderness Results - Results Lab Results: Laboratory Results - last 24 hr 08/09/17 08/09/17 05:33 05:33 Sodium 136 Potassium 3.8 Chloride 102 Carbon Dioxide 29 Anion Gap 5 BUN 20 Creatinine 0.69 Est GFR ( Amer) 139.5 Est GFR (Non-Af Amer) 108.5 BUN/Creatinine Ratio 29.0 H Glucose 101 H Calcium 9.0 Troponin I 0.38 H* B-Natriuretic Peptide 217 H Assessment - Problem List Assessment: Patient Problems Dyspnea (Acute) Influenza A (Acute) Subendocardial infarction (Acute) Weakness (Acute) Acquired elevated hemidiaphragm (Chronic) Aortic stenosis (Chronic) Coronary artery disease (Chronic) Gastro-esophageal reflux (Chronic) Hypercholesteremia (Chronic) Stented coronary artery (Chronic) CHF (congestive heart failure) (Acute) CHF exacerbation (Acute 07/09/15) Hyperlipidemia (Chronic 05/12/14) Plan: Dyspnea (Acute) Influenza A (Acute) He is feeling improved Subendocardial infarction (Acute) CHF (congestive heart failure) (Acute)CHF exacerbation (Acute 07/09/15) We are checking a risk stratification for critical coronary artery disease today with a NM chemical stress test. His troponin I levels are coming down, his BNP remains elevated. I will start him on ramipril 2.5 mg daily Weakness (Acute) He remains weak. He will have a PT/OT consult, PMRU referral. Acquired elevated hemidiaphragm (Chronic) secondary diagnosis Aortic stenosis (Chronic) This requires evaluation, but likely at another date Coronary artery disease (Chronic) see above Gastro-esophageal reflux (Chronic)Hypercholesteremia (Chronic)Stented coronary artery (Chronic) see above Hyperlipidemia (Chronic 05/12/14) Continue current Rx I discussed the above with the patient. I also called his daughter Bee - I discussed the management with his daughter.
[2017-08-09 08:24] LABS: Hematocrit 38 % (42-52); Hemoglobin 12.5 g/dl (14.0-18.0); Mean Corpuscular HGB Conc 33 g/dl (31-36); Mean Corpuscular Hemoglobin 31 pg (27-31); Mean Corpuscular Volume 95 fL (80-94); Platelet Count 120 10^3/ul (150-450); Red Blood Count 3.99 10^6/ul (4.0-5.4); Red Cell Distribution Width 14 % (10.5-15); White Blood Count 6.8 10^3/ul (3.5-10.8)
[2017-08-09] MEDS ORDERED: Ramipril CAP* 2.5 MG PO SCH (09:00)
[2017-08-09] MEDS ORDERED: Metoprolol Succinate XL TAB* 25 MG PO SCH (09:00)
[2017-08-09] MEDS: Clopidogrel TAB* 75 MG PO SCH (10:35)
[2017-08-09] MEDS: Aspirin EC Low Dose* 81 MG TAB.EC PO SCH (10:35)
[2017-08-09 11:23] VITALS: BP 113/57
[2017-08-09] MEDS ORDERED: Regadenoson* 0.4 MG/5 ML SYRINGE ONE (12:28)
--- NOTE | 2017-08-09 14:19 | RAD ---
Edited for charges. INDICATION: Chest pain and shortness of breath in a man with a history of GA COMPARISON: Similar examination dated November 11, 2015 TECHNIQUE: SPECT imaging was performed. Rest images were acquired following the intravenous injection of 10.2 millicuries of technetium 99m tetrofosmin at 0800 hours. At 1303 hours stress images were acquired following the intravenous administration of 25.3 millicuries of technetium 99m tetrofosmin. The patient received intravenous Lexiscan prior to the stress image acquisition. Due to the patient's inability to raise his arms above his head, CT imaging was not acquired thereby limiting image quality. FINDINGS: There is a appearance of a small to moderate uptake defect at the anterior myocardium and to a lesser extent involving the apex of the heart. The cardiac chamber size is normal. There are no wall motion abnormalities. The ejection fraction is calculated at 49% during stress. IMPRESSION: There is a small to moderate uptake defect on the stress images involving the anterior myocardium and apex. ASSESSMENT: Intermediate risk Based on imaging criteria from ACC/AHA 2002 Guideline Update for the Management of Patients With Chronic Stable Angina Table 23. Noninvasive Risk Stratification. Reference. HIGH-RISK (GREATER THAN 3% ANNUAL MORTALITY RATE) - Severe resting left ventricular dysfunction (LVEF < 35%) - Severe exercise left ventricular dysfunction (exercise LVEF < 35%) - Stress-induced large perfusion defect (particularly if anterior) - Stress-induced multiple perfusion defects of moderate size - Large, fixed perfusion defect with LV dilation or increased lung uptake ( thallium-201) - Stress-induced moderate perfusion defect with LV dilation or increased lung uptake (thallium-201) INTERMEDIATE-RISK (1%-3% ANNUAL MORTALITY RATE) - Mild/moderate resting left ventricular dysfunction (LVEF = 35% to 49%) - Stress-induced moderate perfusion defect without LV dilation or increased lung intake (thallium-201) LOW-RISK (LESS THAN 1% ANNUAL MORTALITY RATE) - Normal or small myocardial perfusion defect at rest or with stress MTDD
== END 2017-08-09 15:29 | DRG 208 ==
LOC: ED 20:31 → ICU 22:58 → MEDTELE 08-06 15:46
PROVIDERS: ADMIT Pediatrics; ATTEND Internal Medicine
PROC: 5A1945Z Respiratory Ventilation, 24-96 Consecutive Hours (ICD-10-PCS; principal; 2017-08-03)
PROC: 0BH17EZ Insertion of Endotracheal Airway into Trachea, Via Natural or Artificial Opening (ICD-10-PCS; 2017-08-03)
PROC: 5A1945Z Respiratory Ventilation, 24-96 Consecutive Hours (ICD-10-PCS; 2017-08-03)
DX: J96.01 Acute respiratory failure with hypoxia (principal); I21.A1 Myocardial infarction type 2; J10.00 Influenza due to other identified influenza virus with unspecified type of pneumonia; I50.23 Acute on chronic systolic (congestive) heart failure; N17.9 Acute kidney failure, unspecified; I11.0 Hypertensive heart disease with heart failure; I48.91 Unspecified atrial fibrillation; D69.6 Thrombocytopenia, unspecified; D64.9 Anemia, unspecified; Z79.01 Long term (current) use of anticoagulants; I25.10 Atherosclerotic heart disease of native coronary artery without angina pectoris; Z95.5 Presence of coronary angioplasty implant and graft; I35.0 Nonrheumatic aortic (valve) stenosis; Z66 Do not resuscitate; E78.5 Hyperlipidemia, unspecified; Z87.891 Personal history of nicotine dependence; Z79.02 Long term (current) use of antithrombotics/antiplatelets; Z79.82 Long term (current) use of aspirin; Z79.899 Other long term (current) drug therapy; Z88.8 Allergy status to other drugs, medicaments and biological substances; Z91.040 Latex allergy status; K21.9 Gastro-esophageal reflux disease without esophagitis
CPT/HCPCS: 36415; 36600; 71045; 71046; 78452; 80048; 80053; 80076; 81003; 81015; 82803; 83605; 83735; 83880; 84100; 84145; 84484; 85025; 85610; 85730; 86140; 86850; 86900; 86901; 87040; 87070; 87086; 87205; 87502; 87641; 93005; 93017; 93306; 94002; 94003; 94640; 94660; 94760; 99285; A9270-GY; A9502; G8978-GP-CJ; G8978-GP-CK; G8979-GP-CI; G8987-GO-CK; G8988-GO-CJ; G8989-GO-CJ; J0330; J0456; J1644; J1940; J1956; J2543; J2704; J2785; J3010; J3370; J3475; J3490

== ENCOUNTER 2017-08-09 15:11 | Inpatient (IN) | payer MEDICARE ==
[2017-08-09] MEDS ORDERED: Acetaminophen TAB* 325 MG PO PRN (16:18)
[2017-08-09] MEDS ORDERED: Magnesium Hydroxide LIQ* 30 ML UDC PO PRN (16:18)
[2017-08-09] MEDS: Atorvastatin* 40 MG TAB PO SCH (17:07)
[2017-08-09] MEDS ORDERED: Albuterol/Ipratropium NEB.SOL* Albuterol 2.5 MG/Ipratropium 0.5 MG 3 ML INH PRN (18:00)
--- NOTE | 2017-08-09 21:29 | HP ---
HISTORY AND PHYSICAL: DATE OF ADMISSION: 08/09/17 REASON FOR ADMISSION: Respiratory failure; status post non-ST elevation CO. HISTORY OF PRESENT ILLNESS: Aditya Raygoza is an 87-year-old male. He has a medical history significant for aortic stenosis. He also has a history of chronic ischemic heart disease. He may also have hyperlipidemia as well. The patient was doing well until 08/02/17. He apparently woke up that day acutely short of breath. His daughter, who cares for him, initially had his sister come and look at him as well. They decided to bring him to the emergency room. The patient was found to be in congestive heart failure in the emergency room. He was given Lasix and diltiazem and put on BiPAP. His flu test came back positive. He was given Tamiflu for that and given Zosyn and vancomycin as well. The patient was admitted to the intensive care unit. He underwent endotracheal intubation on 08/03/17 because of his ongoing respiratory failure. He was maintained on vent. The patient did have a James catheter. He was in atrial fibrillation on admission, but converted over to sinus. He was extubated on 08/05/17. He was moved to the floor on 08/07/17. The patient bumped his troponins. He had a non-ST elevation CO with elevation of his troponins. He was seen by Cardiology. Dr. Chacon saw him and wanted a nuclear stress test done. He continued a beta-wes, aspirin, and Plavix and did not initially want anticoagulation. Dr. Dsouza, the doctor taking care of him in the hospital, added ramipril and CK inhibitor today. It was felt that his aortic stenosis would need to be evaluated at a later date. His nuclear stress test did show an ejection fraction of 49% with a [id number] uptake defect on the stress images involving the anterior myocardium. The patient was quite weakened from his prolonged hospital stay. He was felt to have physical therapy and occupational therapy needs. He is now being admitted for inpatient rehab, so he might return to independent living. PAST MEDICAL HISTORY: Significant for the aforementioned aortic stenosis as well as coronary artery disease. He has had multiple stents placed. He has a history of congestive heart failure. CURRENT MEDICATIONS: Include: 1. Lipitor. 2. Plavix. 3. Aspirin a day. 4. Heparin for DVT prophylaxis. 5. Toprol-XL. 6. Ramipril as mentioned previously. ALLERGIES: The patient has allergies listed to NIACIN and AMBIEN. SOCIAL HISTORY: He is a former smoker. He quit about 16 years ago. He does drink a glass of wine several times a week. He lives with his daughter in a split-level house. Some times, he needs his daughter's help to get upstairs. There are multiple steps into the house from the driveway and then he has to go up about 7 steps to get to his level. He has another daughter living on the bottom level of the house. The patient does still drive. He some times goes out to a local restaurant, [employer] to have a glass of wine and talk to some friends. His healthcare proxy is his daughter, Aleja. REVIEW OF SYSTEMS: No current shortness of breath or chest pain. PHYSICAL EXAMINATION VITAL SIGNS: The patient's temperature is 98.4, blood pressure is 115/54, pulse 72, respirations 18. HEENT: His extraocular movements are intact. Tongue is midline. NECK: Supple with no lymphadenopathy. LUNGS: There are coarse rhonchi more in the right lung than the left. HEART: Regular. S1, S2 are audible. ABDOMEN: Soft and nontender. EXTREMITIES: Showed 1+ edema. NEUROLOGIC: He was awake, alert, oriented. He was able to move all 4 extremities without difficulty. FUNCTIONAL EXAM: He transfers with minimal amount of assistance. ASSESSMENT: Weakness following respiratory failure and non-ST elevation myocardial infarction. PLAN: Integrate him into comprehensive and therapeutic rehab program with the following goals: 1. Physical Therapy will see the patient. They are going to work on functional transfer training, ambulation training with a walker. 2. Occupational Therapy will see the patient, work on his activities of daily living including toileting and toilet transfers. 3. Heparin for DVT prophylaxis. 4. For his coronary artery disease, we are going to continue aspirin, Lipitor and his beta-wes. We may also add Lasix, which he took prior to admission. 5. Continue CK inhibitor as well. 6. For his pulmonary function, we are going to add albuterol and Spiriva. 7. access services representative will be closely involved to make sure that any services or equipment the patient requires are in place prior to discharge. 8. The patient expressed his clear wish that he did not want to be resuscitated in case of cardiac arrest. He did also explain that he would go back on the ventilator if he went into respiratory distress. I filled out his MOLST form. His health-care proxy is his daughter. 9. Family training as appropriate. 10. Home with appropriate services. ESTIMATED LENGTH OF STAY: 10 to 14 days. [id number]/CPS #: [id number] MTDD
[2017-08-09] MEDS: Metoprolol Succinate XL TAB* 25 MG PO SCH (22:16)
[2017-08-09] MEDS: Heparin VIAL(*) 5000 UNITS/ML VIAL (FIVE THOUSAND) SUBCUT SCH (22:22)
[2017-08-09] MEDS: Docusate CAP* 100 MG PO SCH (22:22)
[2017-08-10] MEDS: Heparin VIAL(*) 5000 UNITS/ML VIAL (FIVE THOUSAND) SUBCUT SCH ×3 (04:52→22:04)
[2017-08-10] MEDS ORDERED: Spiriva Inhaler DEVICE* 1 EACH DEVICE SCH (09:00)
[2017-08-10] MEDS: Potassium Chlor TAB* 20 MEQ TAB.ER PO SCH (09:19)
[2017-08-10] MEDS: Metoprolol Succinate XL TAB* 25 MG PO SCH ×2 (09:19→22:03)
[2017-08-10] MEDS: Clopidogrel TAB* 75 MG PO SCH (09:19)
[2017-08-10] MEDS: Ramipril CAP* 2.5 MG PO SCH (09:19)
[2017-08-10] MEDS: Aspirin EC TAB* 81 MG TAB.EC PO SCH (09:19)
[2017-08-10] MEDS: Furosemide TAB* 40 MG PO SCH (09:19)
[2017-08-10] MEDS: Docusate CAP* 100 MG PO SCH ×2 (09:19→22:04)
[2017-08-10] MEDS: Tiotropium CAP.INH* CAP.INH/18 MCG (USE ORDER SET !) INH SCH (09:24)
--- NOTE | 2017-08-10 12:32 | PMRUTEAM ---
PMRU: Team Meeting Current Status: Nursing: Current Status Skin Deviations [Bilateral Other Foot] Skin Deviation Description [ dry skin lotion in place Bilateral Foot] Physical Therapy: Current Status Bed Mobility Assistance Min Assist Transfer Moblility Assistance Min Assist Ambulation Assistance Independent Ambulation Assistive Devices Min Asssit Standard Walker Stairs Assistance Not Tested Stairs Recommended Devices Two Rails Number of Stairs 12 Occupational Therapy: Current Status Upper Body Dressing Min Assist Lower Body Dressing Mod Assist Bathing Mod Assist Toileting Mod Assist Toilet Transfer Min Assist Shower Transfer Min Assist Eating Independent Social Work: Current Status Discharge Plan return home with home care svs and family support Potential for Family Training pt's daughter is attentive and involved Anticipated Discharge Home Destination Discharge With VNS and family support Goals: Occupational Therapy: Initial Goals Goals to be Completed in (Days 7-10 days ) Upper Body Bathing Routine Modified Independent with Lower Body Bathing Routine Modified Independent with Upper Body Dressing Routine Independent Lower Body Dressing Routine Minimal Contact Assist Toilet Hygeine and Clothing Modified Independent with Management Routine Toilet Transfer Routine Modified Independent with Tub Transfer Routine Modified Independent with Functional Transfers for ADL Modified Independent with Grooming Routine Independent Feeding Routine Independent Light Housekeeping Tasks Minimal Contact Assist Social Work: Goals Discharge Plan return home with home care svs and family support Potential for Family Training pt's daughter is attentive and involved Anticipated Discharge Home Destination Discharge With VNS and family support Care Plan: Care Plan ADL's - Improve/Maintain Start: 08/10/17 00:01 Freq: QSHIFT Status: Active Target: Protocol: Activity Type Activity Date Activity User E-Sign Co-Sign Detail Recorded Client Recorded Date Recorded By Document 08/10/17 11:50 [id number] 08/10/17 11:50 [id number] 08/10/17 11:50 RU Outcome: ADL's/ADL Transfers Orders/Interventions Occupational Therapy Evaluation & Treatment Device Yes Patient to receive OT 5x/wk for 60-120 Therex min/day Self Care Management Group Therapy UE/LE ADL's with Assist Yes ADL Transfers with Assist Yes Toileting: Transfers,Clothing Management Yes ,Hygeine w/Assist Light Kitchen/Laundry w/Assist Yes Progression Toward Outcome/Goals Progressing DVT Prophylaxis- Improve/Maintain Start: 08/10/17 00:01 Freq: QSHIFT Status: Active Target: Protocol: Activity Type Activity Date Activity User E-Sign Co-Sign Detail Recorded Client Recorded Date Recorded By Document 08/10/17 00:22 [id number] PMRU-C03 08/10/17 00:22 [id number] 08/10/17 00:22 PMRU Outcome: DVT Prophylaxis Outcome/Goals Remains Free of DVT TEDS Stockings on Every AM, Off at HS Discharge Planning - Improve/Maintain Start: 08/10/17 00:01 Freq: QSHIFT Status: Active Target: Protocol: Activity Type Activity Date Activity User E-Sign Co-Sign Detail Recorded Client Recorded Date Recorded By Document 08/10/17 00:22 [id number] PMRU-C03 08/10/17 00:22 [id number] 08/10/17 00:22 PMRU Outcome: Discharge Planning Update Patient Family No Outcome/Goals Demonstrates Understanding of Discharge Plan Education-Improve/Maintain Start: 08/10/17 00:01 Freq: QSHIFT Status: Active Target: Protocol: Activity Type Activity Date Activity User E-Sign Co-Sign Detail Recorded Client Recorded Date Recorded By Document 08/10/17 00:22 [id number] PMRU-C03 08/10/17 00:22 [id number] 08/10/17 00:22 PMRU Outcome: Education Outcome/Goals Demonstrate/ Verbalize Understanding of Written Discharge Instructions Demonstrates Skills Encourage Questions /GI-Improve/Maintain Start: 08/10/17 00:01 Freq: QSHIFT Status: Active Target: Protocol: Activity Type Activity Date Activity User E-Sign Co-Sign Detail Recorded Client Recorded Date Recorded By Document 08/10/17 00:22 [id number] PMRU-C03 08/10/17 00:22 [id number] 08/10/17 00:22 PMRU Outcome: Genitourinary/ Gastrointestinal Genitourinary- Outcome/Goals Maintain/ Achieve Urinary Continence Remain Free of Hospital- Acquired UTI Gastrointestinal-Outcome/Goals Maintain/ Achieve Bowel Regularity in Accordance with Pt's Baseline Prevent Constipation Neurological- Improve/Maintain Start: 08/10/17 00:01 Freq: QSHIFT Status: Active Target: Protocol: Activity Type Activity Date Activity User E-Sign Co-Sign Detail Recorded Client Recorded Date Recorded By Document 08/10/17 00:22 [id number] PMRU-C03 08/10/17 00:22 [id number] 08/10/17 00:22 PMRU Outcome: Neurological Weakness/Aphasia Weakness Outcome/Goals Maintain/ Achieve Baseline Neurological Status Improve Neurological Status Maintain/ Improve Strength/ROM Respiratory - Improve/Maintain Start: 08/10/17 00:01 Freq: QSHIFT Status: Active Target: Protocol: Activity Type Activity Date Activity User E-Sign Co-Sign Detail Recorded Client Recorded Date Recorded By Document 08/10/17 00:22 [id number] PMRU-C03 08/10/17 00:22 [id number] 08/10/17 00:22 PMRU Outcome: Respiratory Does Patient Have a Trach No Outcome/Goals Maintain/ Improve O2 Sat per MD Order Maintain/ Improve Activity Tolerance Safety- Improve/Maintain Start: 08/10/17 00:01 Freq: QSHIFT Status: Active Target: Protocol: Activity Type Activity Date Activity User E-Sign Co-Sign Detail Recorded Client Recorded Date Recorded By Document 08/10/17 00:22 [id number] PMRU-C03 08/10/17 00:22 [id number] 08/10/17 00:22 PMRU Outcome: Safety Outcome/Goals Remain Free of Injury or Harm Cooperates with Safety Measures for Least Restrictive Environment Prevent Falls/ Injury Outcome/Goals Met Comment PA in place Medicine Note: Length of Stay: 14 days Anticipated Discharge Destination: Home Tentative Discharge Date: August 24, 2017 Discharged to: Home
--- NOTE | 2017-08-10 16:41 | PN ---
Progress Note Date of Service: 08/10/17 Note: AVEL JAMES was visited. Therapy notes read and reviewed. He was discussed in interdisciplinary team rounds. He did okay with therapy, but there are some gaps in his memory. Current Medications: Active Medications Generic Name Dose Route Start Last Admin Trade Name Freq PRN Reason Stop Dose Admin Acetaminophen 650 mg 08/09/17 16:18 Tylenol Tab* PO Q6H PRN FEVER/PAIN Albuterol 2 puff 08/09/17 17:59 Ventolin Hfa Inhaler* INH Q6H PRN SOB/WHEEZING Albuterol/Ipratropium 1 neb 08/09/17 18:00 Duoneb (Albuterol 2.5 Mg/Ipratropium 0.5 Mg) INH Q6H PRN SOB/WHEEZING Aspirin 81 mg 08/10/17 09:00 08/10/17 09:19 Aspirin Ec Low Dose* PO 81 mg DAILY BERENICE Administration Atorvastatin Calcium 40 mg 08/09/17 17:00 08/09/17 17:07 Lipitor* PO 40 mg 1700 BERENICE Administration Clopidogrel Bisulfate 75 mg 08/10/17 09:00 08/10/17 09:19 Plavix Tab* PO 75 mg DAILY BERENICE Administration Device 1 each 08/10/17 09:00 Tiotropium Inhaler Device* .SEE ORDER .USE w/ SPIRIVA CAPS BERENICE Docusate Sodium 100 mg 08/09/17 21:00 08/10/17 09:19 Colace Cap* PO 100 mg BID BERENICE Administration Furosemide 40 mg 08/10/17 09:00 08/10/17 09:19 Lasix Tab* PO 40 mg DAILY BERENICE Administration Heparin Sodium (Porcine) 5,000 units 08/09/17 22:00 08/10/17 14:36 Heparin Vial(*) SUBCUT 5,000 units Q8HR BERENICE Administration Magnesium Hydroxide 30 ml 08/09/17 16:18 Milk Of Magnesia Liq* PO Q6H PRN CONSTIPATION Metoprolol Succinate 25 mg 08/09/17 21:00 08/10/17 09:19 Toprol Xl Tab* PO 25 mg BID BERENICE Administration Potassium Chloride 20 meq 08/10/17 09:00 08/10/17 09:19 Klor Con Er Tab* PO 20 meq DAILY BERENICE Administration Ramipril 2.5 mg 08/10/17 09:00 08/10/17 09:19 Altace Cap* PO 2.5 mg DAILY BERENICE Administration Senna 2 tab 08/09/17 16:18 Senokot Tab* PO BEDTIME PRN CONSTIPATION Tiotropium [place] 1 cap 08/10/17 09:00 08/10/17 09:24 Spiriva Cap.Inh* INH 1 cap DAILY BERENICE Administration Vital Signs: Vital Signs Temp Pulse Resp BP Pulse Ox 98.4 F 72 18 98/46 97 08/10/17 15:59 08/10/17 15:59 08/10/17 15:59 08/10/17 15:59 08/10/17 15:59 Exam: LUNGS: Ronchi, right lung HEART: reg rhythm ABDOMEN: Soft, +BS EXTREMITIES: Normal tone Assessment/Plan: 1. Respiratory Failure: On Spiriva for probable COPD. Breathing ok. PT/OT. O2, 2.5 lpm via [place] 2. NSTEMI: Cardiology follow up re: Nuclear Stress test, need for cath. Lipitor/ Altace/ASA/Plavix/Toprol 3. Memory problems: Have ordered FIELD APPRAISER 4. CHF: lasix 5. DVT Prophylaxis: Heparin S/Q 6. Advanced Directives: Has MOLST. DNR. Can intubate for respiratory failure 7. Influenza: Had Tamiflu. Stable 08/10/17 16:42
[2017-08-10] MEDS: Atorvastatin* 40 MG TAB PO SCH (17:29)
[2017-08-11] MEDS: Heparin VIAL(*) 5000 UNITS/ML VIAL (FIVE THOUSAND) SUBCUT SCH ×3 (05:32→21:34)
[2017-08-11 06:57] LABS: ABS Basophils 0 10^3/ul (0-0.2); ABS Eosinophils 0.2 10^3/ul (0-0.6); ABS Monocytes 0.9 10^3/ul (0-0.8); ABS Neutrophils 4.3 10^3/ul (1.5-7.7); ABS Nucleated RBC 0 10^3/ul; Eosinophil % 2.4 % (0-6); Hematocrit 39 % (42-52); Hemoglobin 13.2 g/dl (14.0-18.0); Lymphocyte % 15.8 % (25-47); Mean Corpuscular HGB Conc 34 g/dl (31-36); Mean Corpuscular Hemoglobin 32 pg (27-31); Mean Corpuscular Volume 94 fL (80-94); Nucleated Red Blood Cells % 0; Platelet Count 135 10^3/ul (150-450); Red Blood Count 4.14 10^6/ul (4.0-5.4); Red Cell Distribution Width 14 % (10.5-15); White Blood Count 6.4 10^3/ul (3.5-10.8)
[2017-08-11 07:52] LABS: EGFR Non-African American 101.6 (>60)
[2017-08-11] MEDS: Furosemide TAB* 40 MG PO SCH (09:42)
[2017-08-11] MEDS: Docusate CAP* 100 MG PO SCH ×2 (09:42→21:33)
[2017-08-11] MEDS: Potassium Chlor TAB* 20 MEQ TAB.ER PO SCH (09:42)
[2017-08-11] MEDS: Metoprolol Succinate XL TAB* 25 MG PO SCH ×2 (09:42→21:33)
[2017-08-11] MEDS: Aspirin EC TAB* 81 MG TAB.EC PO SCH (09:42)
[2017-08-11] MEDS: Clopidogrel TAB* 75 MG PO SCH (09:42)
[2017-08-11] MEDS: Tiotropium CAP.INH* CAP.INH/18 MCG (USE ORDER SET !) INH SCH (09:43)
[2017-08-11] MEDS: Ramipril CAP* 2.5 MG PO SCH (09:43)
[2017-08-11] MEDS: Atorvastatin* 40 MG TAB PO SCH (17:34)
--- NOTE | 2017-08-11 19:45 | PN ---
Progress Note Date of Service: 08/11/17 Note: AVLE JAMES was visited. Therapy notes read and reviewed. He was able to walk further today but needs help with personal care and gait is unsteady Current Medications: Active Medications Generic Name Dose Route Start Last Admin Trade Name Freq PRN Reason Stop Dose Admin Acetaminophen 650 mg 08/09/17 16:18 Tylenol Tab* PO Q6H PRN FEVER/PAIN Albuterol 2 puff 08/09/17 17:59 Ventolin Hfa Inhaler* INH Q6H PRN SOB/WHEEZING Albuterol/Ipratropium 1 neb 08/09/17 18:00 Duoneb (Albuterol 2.5 Mg/Ipratropium 0.5 Mg) INH Q6H PRN SOB/WHEEZING Aspirin 81 mg 08/10/17 09:00 08/11/17 09:42 Aspirin Ec Low Dose* PO 81 mg DAILY BERENICE Administration Atorvastatin Calcium 40 mg 08/09/17 17:00 08/11/17 17:34 Lipitor* PO 40 mg 1700 BERENICE Administration Clopidogrel Bisulfate 75 mg 08/10/17 09:00 08/11/17 09:42 Plavix Tab* PO 75 mg DAILY BERENICE Administration Device 1 each 08/10/17 09:00 Tiotropium Inhaler Device* .SEE ORDER .USE w/ SPIRIVA CAPS BERENICE Docusate Sodium 100 mg 08/09/17 21:00 08/11/17 09:42 Colace Cap* PO 100 mg BID BERENICE Administration Furosemide 40 mg 08/10/17 09:00 08/11/17 09:42 Lasix Tab* PO 40 mg DAILY BERENICE Administration Heparin Sodium (Porcine) 5,000 units 08/09/17 22:00 08/11/17 14:59 Heparin Vial(*) SUBCUT 5,000 units Q8HR BERENICE Administration Magnesium Hydroxide 30 ml 08/09/17 16:18 Milk Of Magnesia Liq* PO Q6H PRN CONSTIPATION Metoprolol Succinate 25 mg 08/09/17 21:00 08/11/17 09:42 Toprol Xl Tab* PO 25 mg BID BERENICE Administration Potassium Chloride 20 meq 08/10/17 09:00 08/11/17 09:42 Klor Con Er Tab* PO 20 meq DAILY BERENICE Administration Ramipril 2.5 mg 08/10/17 09:00 08/11/17 09:43 Altace Cap* PO 2.5 mg DAILY BERENICE Administration Senna 2 tab 08/09/17 16:18 Senokot Tab* PO BEDTIME PRN CONSTIPATION Tiotropium [place] 1 cap 08/10/17 09:00 08/11/17 09:43 Spiriva Cap.Inh* INH 1 cap DAILY BERENICE Administration Vital Signs: Vital Signs Temp Pulse Resp BP Pulse Ox 98.8 F 90 17 109/57 99 08/11/17 16:12 08/11/17 16:12 08/11/17 16:12 08/11/17 16:12 08/11/17 16:41 Lab Results: Laboratory Results - last 24 hr 08/11/17 08/11/17 06:44 06:44 WBC 6.4 RBC 4.14 Hgb 13.2 L Hct 39 L MCV 94 MCH 32 H MCHC 34 RDW 14 Plt Count 135 L MPV 11.0 H Neut % (Auto) 67.2 Lymph % (Auto) 15.8 L [place] % (Auto) 14.1 H Eos % (Auto) 2.4 Baso % (Auto) 0.5 Absolute Neuts (auto) 4.3 Absolute Lymphs (auto) 1.0 Absolute Monos (auto) 0.9 H Absolute Eos (auto) 0.2 Absolute Basos (auto) 0 Absolute Nucleated RBC 0 Nucleated RBC % 0 Sodium 137 L Potassium 4.1 Chloride 100 L Carbon Dioxide 29 Anion Gap 8 BUN 16 Creatinine 0.73 Est GFR ( Amer) 130.7 Est GFR (Non-Af Amer) 101.6 BUN/Creatinine Ratio 21.9 H Glucose 100 Calcium 9.2 Total Bilirubin 0.70 AST 44 H ALT 45 Alkaline Phosphatase 42 Total Protein 7.0 Albumin 3.7 Globulin 3.3 Albumin/Globulin Ratio 1.1 Exam: LUNGS: Ronchi, right lung HEART: reg rhythm ABDOMEN: Soft, +BS EXTREMITIES: Normal tone Assessment/Plan: 1. Respiratory Failure: On Spiriva for probable COPD. Breathing ok. PT/OT. O2, 2.5 lpm via [place] 2. NSTEMI: Cardiology follow up re: Nuclear Stress test, need for cath. Lipitor/ Altace/ASA/Plavix/Toprol 3. Memory problems: Have ordered NETSUITE DEVELOPER 4. CHF: lasix 5. DVT Prophylaxis: Heparin S/Q 6. Advanced Directives: Has MOLST. DNR. Can intubate for respiratory failure 7. Influenza: Had Tamiflu. Stable 08/11/17 19:46
[2017-08-11] MEDS: Albuterol HFA INHALER* 8 gm MDI INH PRN (21:37)
[2017-08-12] MEDS: Heparin VIAL(*) 5000 UNITS/ML VIAL (FIVE THOUSAND) SUBCUT SCH ×3 (05:53→21:18)
[2017-08-12] MEDS: Clopidogrel TAB* 75 MG PO SCH (09:25)
[2017-08-12] MEDS: Furosemide TAB* 40 MG PO SCH (09:25)
[2017-08-12] MEDS: Aspirin EC TAB* 81 MG TAB.EC PO SCH (09:25)
[2017-08-12] MEDS: Docusate CAP* 100 MG PO SCH ×2 (09:25→21:18)
[2017-08-12] MEDS: Metoprolol Succinate XL TAB* 25 MG PO SCH ×2 (09:26→21:18)
[2017-08-12] MEDS: Tiotropium CAP.INH* CAP.INH/18 MCG (USE ORDER SET !) INH SCH (09:26)
[2017-08-12] MEDS: Potassium Chlor TAB* 20 MEQ TAB.ER PO SCH (09:26)
[2017-08-12] MEDS: Ramipril CAP* 2.5 MG PO SCH (09:26)
--- NOTE | 2017-08-12 16:23 | PN ---
Progress Note Date of Service: 08/12/17 Note: AEVL JAMES was visited. Therapy notes read and reviewed. he remains anxious to go home but remains faigued and impaired. He overall looks ok. Breathing ok Current Medications: Active Medications Generic Name Dose Route Start Last Admin Trade Name Freq PRN Reason Stop Dose Admin Acetaminophen 650 mg 08/09/17 16:18 Tylenol Tab* PO Q6H PRN FEVER/PAIN Albuterol 2 puff 08/09/17 17:59 08/11/17 21:37 Ventolin Hfa Inhaler* INH 2 puff Q6H PRN Administration SOB/WHEEZING Albuterol/Ipratropium 1 neb 08/09/17 18:00 Duoneb (Albuterol 2.5 Mg/Ipratropium 0.5 Mg) INH Q6H PRN SOB/WHEEZING Aspirin 81 mg 08/10/17 09:00 08/12/17 09:25 Aspirin Ec Low Dose* PO 81 mg DAILY BERENICE Administration Atorvastatin Calcium 40 mg 08/09/17 17:00 08/11/17 17:34 Lipitor* PO 40 mg 1700 BERENICE Administration Clopidogrel Bisulfate 75 mg 08/10/17 09:00 08/12/17 09:25 Plavix Tab* PO 75 mg DAILY BERENICE Administration Device 1 each 08/10/17 09:00 Tiotropium Inhaler Device* .SEE ORDER .USE w/ SPIRIVA CAPS BERENICE Docusate Sodium 100 mg 08/09/17 21:00 08/12/17 09:25 Colace Cap* PO 100 mg BID BERENICE Administration Furosemide 40 mg 08/10/17 09:00 08/12/17 09:25 Lasix Tab* PO 40 mg DAILY BERENICE Administration Heparin Sodium (Porcine) 5,000 units 08/09/17 22:00 08/12/17 14:27 Heparin Vial(*) SUBCUT 5,000 units Q8HR BERENICE Administration Magnesium Hydroxide 30 ml 08/09/17 16:18 Milk Of Magnesia Liq* PO Q6H PRN CONSTIPATION Metoprolol Succinate 25 mg 08/09/17 21:00 08/12/17 09:26 Toprol Xl Tab* PO 25 mg BID BERENICE Administration Potassium Chloride 20 meq 08/10/17 09:00 08/12/17 09:26 Klor Con Er Tab* PO 20 meq DAILY BERENICE Administration Ramipril 2.5 mg 08/10/17 09:00 08/12/17 09:26 Altace Cap* PO 2.5 mg DAILY BERENICE Administration Senna 2 tab 08/09/17 16:18 Senokot Tab* PO BEDTIME PRN CONSTIPATION Tiotropium [place] 1 cap 08/10/17 09:00 08/12/17 09:26 Spiriva Cap.Inh* INH 1 cap DAILY BERENICE Administration Vital Signs: Vital Signs Temp Pulse Resp BP Pulse Ox 98.0 F 95 20 108/59 99 08/12/17 05:51 08/12/17 05:51 08/12/17 15:18 08/12/17 05:51 08/12/17 15:18 Exam: LUNGS: Ronchi, right lung HEART: reg rhythm ABDOMEN: Soft, +BS EXTREMITIES: Normal tone Assessment/Plan: 1. Respiratory Failure: On Spiriva for probable COPD. Breathing ok. PT/OT. O2, 2.5 lpm via [place] 2. NSTEMI: Cardiology follow up re: Nuclear Stress test, need for cath. Lipitor/ Altace/ASA/Plavix/Toprol 3. Memory problems: Have ordered CREW MESS ATTENDANT 4. CHF: lasix 5. DVT Prophylaxis: Heparin S/Q 6. Advanced Directives: Has MOLST. DNR. Can intubate for respiratory failure 7. Influenza: Had Tamiflu. Stable 08/12/17 16:24
[2017-08-12] MEDS: Atorvastatin* 40 MG TAB PO SCH (16:29)
[2017-08-13] MEDS: Heparin VIAL(*) 5000 UNITS/ML VIAL (FIVE THOUSAND) SUBCUT SCH ×3 (05:02→21:20)
[2017-08-13] MEDS: Clopidogrel TAB* 75 MG PO SCH (08:04)
[2017-08-13] MEDS: Aspirin EC TAB* 81 MG TAB.EC PO SCH (08:04)
[2017-08-13] MEDS: Potassium Chlor TAB* 20 MEQ TAB.ER PO SCH (08:05)
[2017-08-13] MEDS: Docusate CAP* 100 MG PO SCH ×2 (08:05→21:19)
[2017-08-13] MEDS: Metoprolol Succinate XL TAB* 25 MG PO SCH ×2 (08:05→21:19)
[2017-08-13] MEDS: Ramipril CAP* 2.5 MG PO SCH (08:05)
[2017-08-13] MEDS: Furosemide TAB* 40 MG PO SCH (08:05)
[2017-08-13] MEDS: Tiotropium CAP.INH* CAP.INH/18 MCG (USE ORDER SET !) INH SCH (08:06)
[2017-08-13] MEDS: Atorvastatin* 40 MG TAB PO SCH (16:31)
--- NOTE | 2017-08-13 20:53 | PN ---
Progress Note Date of Service: 08/13/17 Note: AVEL JAMES was visited. Therapy notes read and reviewed. His daughter is concerned about BP. May be able to cut Toprol to once a day Current Medications: Active Medications Generic Name Dose Route Start Last Admin Trade Name Freq PRN Reason Stop Dose Admin Acetaminophen 650 mg 08/09/17 16:18 Tylenol Tab* PO Q6H PRN FEVER/PAIN Albuterol 2 puff 08/09/17 17:59 08/11/17 21:37 Ventolin Hfa Inhaler* INH 2 puff Q6H PRN Administration SOB/WHEEZING Albuterol/Ipratropium 1 neb 08/09/17 18:00 Duoneb (Albuterol 2.5 Mg/Ipratropium 0.5 Mg) INH Q6H PRN SOB/WHEEZING Aspirin 81 mg 08/10/17 09:00 08/13/17 08:04 Aspirin Ec Low Dose* PO 81 mg DAILY BERENICE Administration Atorvastatin Calcium 40 mg 08/09/17 17:00 08/13/17 16:31 Lipitor* PO 40 mg 1700 BERENICE Administration Clopidogrel Bisulfate 75 mg 08/10/17 09:00 08/13/17 08:04 Plavix Tab* PO 75 mg DAILY BERENICE Administration Device 1 each 08/10/17 09:00 Tiotropium Inhaler Device* .SEE ORDER .USE w/ SPIRIVA CAPS BERENICE Docusate Sodium 100 mg 08/09/17 21:00 08/13/17 08:05 Colace Cap* PO 100 mg BID BERENICE Administration Furosemide 40 mg 08/10/17 09:00 08/13/17 08:05 Lasix Tab* PO 40 mg DAILY BERENICE Administration Heparin Sodium (Porcine) 5,000 units 08/09/17 22:00 08/13/17 13:57 Heparin Vial(*) SUBCUT 5,000 units Q8HR BERENICE Administration Magnesium Hydroxide 30 ml 08/09/17 16:18 Milk Of Magnesia Liq* PO Q6H PRN CONSTIPATION Metoprolol Succinate 25 mg 08/09/17 21:00 08/13/17 08:05 Toprol Xl Tab* PO 25 mg BID BERENICE Administration Potassium Chloride 20 meq 08/10/17 09:00 08/13/17 08:05 Klor Con Er Tab* PO 20 meq DAILY BERENICE Administration Ramipril 2.5 mg 08/10/17 09:00 08/13/17 08:05 Altace Cap* PO 2.5 mg DAILY BERENICE Administration Senna 2 tab 08/09/17 16:18 Senokot Tab* PO BEDTIME PRN CONSTIPATION Tiotropium [place] 1 cap 08/10/17 09:00 08/13/17 08:06 Spiriva Cap.Inh* INH 1 cap DAILY BERENICE Administration Vital Signs: Vital Signs Temp Pulse Resp BP Pulse Ox 98.5 F 71 20 107/53 99 08/13/17 16:29 08/13/17 16:29 08/13/17 16:29 08/13/17 16:29 08/13/17 16:29 Exam: LUNGS: Clear HEART: reg rhythm ABDOMEN: Soft, +BS EXTREMITIES: Normal tone Assessment/Plan: 1. Respiratory Failure: On Spiriva for probable COPD. Breathing ok. PT/OT. O2, 2.5 lpm via [place] 2. NSTEMI: Cardiology follow up re: Nuclear Stress test, need for cath. Lipitor/ Altace/ASA/Plavix/Toprol 3. 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 CHF: lasix 5. DVT Prophylaxis: Heparin S/Q 6. Advanced Directives: Has MOLST. DNR. Can intubate for respiratory failure 7. Influenza: Had Tamiflu. Stable 08/13/17 20:54
[2017-08-14] MEDS: Heparin VIAL(*) 5000 UNITS/ML VIAL (FIVE THOUSAND) SUBCUT SCH ×3 (05:14→21:28)
[2017-08-14] MEDS: Albuterol HFA INHALER* 8 gm MDI INH PRN ×2 (06:49→13:34)
[2017-08-14] MEDS: Metoprolol Succinate XL TAB* 25 MG PO SCH ×2 (08:03→21:26)
[2017-08-14] MEDS: Furosemide TAB* 40 MG PO SCH (08:03)
[2017-08-14] MEDS: Aspirin EC TAB* 81 MG TAB.EC PO SCH (08:03)
[2017-08-14] MEDS: Docusate CAP* 100 MG PO SCH ×2 (08:03→21:27)
[2017-08-14] MEDS: Potassium Chlor TAB* 20 MEQ TAB.ER PO SCH (08:03)
[2017-08-14] MEDS: Clopidogrel TAB* 75 MG PO SCH (08:03)
[2017-08-14] MEDS: Ramipril CAP* 2.5 MG PO SCH (08:04)
[2017-08-14] MEDS: Tiotropium CAP.INH* CAP.INH/18 MCG (USE ORDER SET !) INH SCH (08:04)
--- NOTE | 2017-08-14 12:07 | PN ---
Progress Note Date of Service: 08/14/17 Note: AVEL JAMES was visited. Therapy notes read and reviewed.His daughter is worried hospitalization is depressing him. She does not want a new med. Current Medications: Active Medications Generic Name Dose Route Start Last Admin Trade Name Freq PRN Reason Stop Dose Admin Acetaminophen 650 mg 08/09/17 16:18 Tylenol Tab* PO Q6H PRN FEVER/PAIN Albuterol 2 puff 08/09/17 17:59 08/14/17 06:49 Ventolin Hfa Inhaler* INH 2 puff Q6H PRN Administration SOB/WHEEZING Albuterol/Ipratropium 1 neb 08/09/17 18:00 Duoneb (Albuterol 2.5 Mg/Ipratropium 0.5 Mg) INH Q6H PRN SOB/WHEEZING Aspirin 81 mg 08/10/17 09:00 08/14/17 08:03 Aspirin Ec Low Dose* PO 81 mg DAILY BERENICE Administration Atorvastatin Calcium 40 mg 08/09/17 17:00 08/13/17 16:31 Lipitor* PO 40 mg 1700 BERENICE Administration Clopidogrel Bisulfate 75 mg 08/10/17 09:00 08/14/17 08:03 Plavix Tab* PO 75 mg DAILY BERENICE Administration Device 1 each 08/10/17 09:00 Tiotropium Inhaler Device* .SEE ORDER .USE w/ SPIRIVA CAPS BERENICE Docusate Sodium 100 mg 08/09/17 21:00 08/14/17 08:03 Colace Cap* PO 100 mg BID BERENICE Administration Furosemide 40 mg 08/10/17 09:00 08/14/17 08:03 Lasix Tab* PO 40 mg DAILY BERENICE Administration Heparin Sodium (Porcine) 5,000 units 08/09/17 22:00 08/14/17 05:14 Heparin Vial(*) SUBCUT 5,000 units Q8HR BERENICE Administration Magnesium Hydroxide 30 ml 08/09/17 16:18 Milk Of Magnesia Liq* PO Q6H PRN CONSTIPATION Metoprolol Succinate 25 mg 08/09/17 21:00 08/14/17 08:03 Toprol Xl Tab* PO 25 mg BID BERENICE Administration Potassium Chloride 20 meq 08/10/17 09:00 08/14/17 08:03 Klor Con Er Tab* PO 20 meq DAILY BERENICE Administration Ramipril 2.5 mg 08/10/17 09:00 08/14/17 08:04 Altace Cap* PO 2.5 mg DAILY BERENICE Administration Senna 2 tab 08/09/17 16:18 Senokot Tab* PO BEDTIME PRN CONSTIPATION Tiotropium [place] 1 cap 08/10/17 09:00 08/14/17 08:04 Spiriva Cap.Inh* INH 1 cap DAILY BERENICE Administration Vital Signs: Vital Signs Temp Pulse Resp BP Pulse Ox 98.2 F 70 18 104/53 100 08/14/17 05:08 08/14/17 05:08 08/14/17 05:08 08/14/17 05:08 08/14/17 10:13 Exam: LUNGS: Clear HEART: reg rhythm ABDOMEN: Soft, +BS EXTREMITIES: Normal tone Assessment/Plan: 1. Respiratory Failure: On Spiriva for probable COPD. Breathing ok. PT/OT. O2, 2.5 lpm via [place] 2. NSTEMI: Cardiology follow up re: Nuclear Stress test, need for cath. Lipitor/ Altace/ASA/Plavix/Toprol 3. Memory problems: Have ordered MACHINE I COREMAKER 4. CHF: lasix 5. DVT Prophylaxis: Heparin S/Q 6. Advanced Directives: Has MOLST. DNR. Can intubate for respiratory failure 7. Influenza: Had Tamiflu. Stable 08/14/17 12:07
[2017-08-14] MEDS: Atorvastatin* 40 MG TAB PO SCH (17:01)
[2017-08-15] MEDS: Heparin VIAL(*) 5000 UNITS/ML VIAL (FIVE THOUSAND) SUBCUT SCH ×3 (05:42→20:58)
[2017-08-15] MEDS: Aspirin EC TAB* 81 MG TAB.EC PO SCH (08:29)
[2017-08-15] MEDS: Docusate CAP* 100 MG PO SCH ×2 (08:33→20:58)
[2017-08-15] MEDS: Ramipril CAP* 2.5 MG PO SCH (08:33)
[2017-08-15] MEDS: Metoprolol Succinate XL TAB* 25 MG PO SCH ×2 (08:33→20:58)
[2017-08-15] MEDS: Clopidogrel TAB* 75 MG PO SCH (08:33)
[2017-08-15] MEDS: Furosemide TAB* 40 MG PO SCH (08:33)
[2017-08-15] MEDS: Potassium Chlor TAB* 20 MEQ TAB.ER PO SCH (08:33)
[2017-08-15] MEDS: Tiotropium CAP.INH* CAP.INH/18 MCG (USE ORDER SET !) INH SCH (08:34)
[2017-08-15] MEDS: Albuterol HFA INHALER* 8 gm MDI INH PRN (10:39)
--- NOTE | 2017-08-15 13:07 | PN ---
Progress Note Date of Service: 08/15/17 Note: AVEL JAMES was visited. Nursing notes read and reviewed. He has circular lesions on his abdomen suspicious for ringworm. Will treat with clotrimazole. Current Medications: Active Medications Generic Name Dose Route Start Last Admin Trade Name Freq PRN Reason Stop Dose Admin Acetaminophen 650 mg 08/09/17 16:18 Tylenol Tab* PO Q6H PRN FEVER/PAIN Albuterol 2 puff 08/09/17 17:59 08/15/17 10:39 Ventolin Hfa Inhaler* INH 2 puff Q6H PRN Administration SOB/WHEEZING Albuterol/Ipratropium 1 neb 08/09/17 18:00 Duoneb (Albuterol 2.5 Mg/Ipratropium 0.5 Mg) INH Q6H PRN SOB/WHEEZING Aspirin 81 mg 08/10/17 09:00 08/15/17 08:29 Aspirin Ec Low Dose* PO 81 mg DAILY BERENICE Administration Atorvastatin Calcium 40 mg 08/09/17 17:00 08/14/17 17:01 Lipitor* PO 40 mg 1700 BERENICE Administration Clopidogrel Bisulfate 75 mg 08/10/17 09:00 08/15/17 08:33 Plavix Tab* PO 75 mg DAILY BERENICE Administration Device 1 each 08/10/17 09:00 Tiotropium Inhaler Device* .SEE ORDER .USE w/ SPIRIVA CAPS BERENICE Docusate Sodium 100 mg 08/09/17 21:00 08/15/17 08:33 Colace Cap* PO 100 mg BID BERENICE Administration Furosemide 40 mg 08/10/17 09:00 08/15/17 08:33 Lasix Tab* PO 40 mg DAILY BERENICE Administration Heparin Sodium (Porcine) 5,000 units 08/09/17 22:00 08/15/17 05:42 Heparin Vial(*) SUBCUT 5,000 units Q8HR BERENICE Administration Magnesium Hydroxide 30 ml 08/09/17 16:18 08/14/17 21:25 Milk Of Magnesia Liq* PO 30 ml Q6H PRN Administration CONSTIPATION Metoprolol Succinate 25 mg 08/09/17 21:00 08/15/17 08:33 Toprol Xl Tab* PO 25 mg BID BERENICE Administration Potassium Chloride 20 meq 08/10/17 09:00 08/15/17 08:33 Klor Con Er Tab* PO 20 meq DAILY BERENICE Administration Ramipril 2.5 mg 08/10/17 09:00 08/15/17 08:33 Altace Cap* PO 2.5 mg DAILY BERENICE Administration Senna 2 tab 08/09/17 16:18 Senokot Tab* PO BEDTIME PRN CONSTIPATION Tiotropium [place] 1 cap 08/10/17 09:00 08/15/17 08:34 Spiriva Cap.Inh* INH 1 cap DAILY BERENICE Administration Vital Signs: Vital Signs Temp Pulse Resp BP Pulse Ox 98.1 F 76 20 118/55 97 08/15/17 05:40 08/15/17 05:40 08/15/17 05:40 08/15/17 05:40 08/15/17 05:40 Exam: LUNGS: Clear HEART: reg rhythm ABDOMEN: Soft, +BS EXTREMITIES: Normal tone Assessment/Plan: 1. Respiratory Failure: On Spiriva for probable COPD. Breathing ok. PT/OT. O2, 2.5 lpm via [place] 2. NSTEMI: Cardiology follow up re: Nuclear Stress test, need for cath. Lipitor/ Altace/ASA/Plavix/Toprol 3. 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 CHF: lasix 5. DVT Prophylaxis: Heparin S/Q 6. Advanced Directives: Has MOLST. DNR. Can intubate for respiratory failure 7. Influenza: Had Tamiflu. Stable 8. Ringworm: topical clotrimazole 08/15/17 13:07
[2017-08-15] MEDS: Atorvastatin* 40 MG TAB PO SCH (17:24)
[2017-08-15] MEDS: Clotrimazole 1% CREAM* 45 GM TOPICAL SCH (20:58)
[2017-08-16] MEDS: Heparin VIAL(*) 5000 UNITS/ML VIAL (FIVE THOUSAND) SUBCUT SCH ×3 (05:08→20:16)
[2017-08-16] MEDS: Aspirin EC TAB* 81 MG TAB.EC PO SCH (08:06)
[2017-08-16] MEDS: Tiotropium CAP.INH* CAP.INH/18 MCG (USE ORDER SET !) INH SCH (08:06)
[2017-08-16] MEDS: Ramipril CAP* 2.5 MG PO SCH (08:06)
[2017-08-16] MEDS: Furosemide TAB* 40 MG PO SCH (08:06)
[2017-08-16] MEDS: Docusate CAP* 100 MG PO SCH ×2 (08:06→20:15)
[2017-08-16] MEDS: Potassium Chlor TAB* 20 MEQ TAB.ER PO SCH (08:07)
[2017-08-16] MEDS: Clopidogrel TAB* 75 MG PO SCH (08:07)
[2017-08-16] MEDS: Metoprolol Succinate XL TAB* 25 MG PO SCH ×2 (08:07→20:15)
[2017-08-16] MEDS: Clotrimazole 1% CREAM* 45 GM TOPICAL SCH ×2 (08:42→20:16)
--- NOTE | 2017-08-16 16:28 | PN ---
Progress Note Date of Service: 08/16/17 Note: AVEL JAMES was visited. Therapy notes read and reviewed. Ambulating fairly well. Memory has gaps. Fatigues quickly Current Medications: Active Medications Generic Name Dose Route Start Last Admin Trade Name Freq PRN Reason Stop Dose Admin Acetaminophen 650 mg 08/09/17 16:18 Tylenol Tab* PO Q6H PRN FEVER/PAIN Albuterol 2 puff 08/09/17 17:59 08/15/17 10:39 Ventolin Hfa Inhaler* INH 2 puff Q6H PRN Administration SOB/WHEEZING Albuterol/Ipratropium 1 neb 08/09/17 18:00 08/15/17 16:22 Duoneb (Albuterol 2.5 Mg/Ipratropium 0.5 Mg) INH 1 neb Q6H PRN Administration SOB/WHEEZING Aspirin 81 mg 08/10/17 09:00 08/16/17 08:06 Aspirin Ec Low Dose* PO 81 mg DAILY BERENICE Administration Atorvastatin Calcium 40 mg 08/09/17 17:00 08/15/17 17:24 Lipitor* PO 40 mg 1700 BERENICE Administration Clopidogrel Bisulfate 75 mg 08/10/17 09:00 08/16/17 08:07 Plavix Tab* PO 75 mg DAILY BERENICE Administration Clotrimazole 1 applic 08/15/17 21:00 08/16/17 08:42 Clotrimazole 1%* TOPICAL 1 applic BID BERENICE Administration Device 1 each 08/10/17 09:00 Tiotropium Inhaler Device* .SEE ORDER .USE w/ SPIRIVA CAPS BERENICE Docusate Sodium 100 mg 08/09/17 21:00 08/16/17 08:06 Colace Cap* PO 100 mg BID BERENICE Administration Furosemide 40 mg 08/10/17 09:00 08/16/17 08:06 Lasix Tab* PO 40 mg DAILY BERENICE Administration Heparin Sodium (Porcine) 5,000 units 08/09/17 22:00 08/16/17 14:05 Heparin Vial(*) SUBCUT 5,000 units Q8HR BERENICE Administration Magnesium Hydroxide 30 ml 08/09/17 16:18 08/14/17 21:25 Milk Of Magnesia Liq* PO 30 ml Q6H PRN Administration CONSTIPATION Metoprolol Succinate 25 mg 08/09/17 21:00 08/16/17 08:07 Toprol Xl Tab* PO 25 mg BID BERENICE Administration Potassium Chloride 20 meq 08/10/17 09:00 08/16/17 08:07 Klor Con Er Tab* PO 20 meq DAILY BERNEICE Administration Ramipril 2.5 mg 08/10/17 09:00 08/16/17 08:06 Altace Cap* PO 2.5 mg DAILY BERENICE Administration Senna 2 tab 08/09/17 16:18 Senokot Tab* PO BEDTIME PRN CONSTIPATION Tiotropium [place] 1 cap 08/10/17 09:00 08/16/17 08:06 Spiriva Cap.Inh* INH 1 cap DAILY BERENICE Administration Vital Signs: Vital Signs Temp Pulse Resp BP Pulse Ox 98.4 F 81 20 121/59 99 08/16/17 05:03 08/16/17 05:03 08/16/17 07:33 08/16/17 05:03 08/16/17 07:33 Exam: LUNGS: Clear HEART: reg rhythm ABDOMEN: Soft, +BS. 2 abdominal lesions c/w tinea corporis EXTREMITIES: Normal tone Assessment/Plan: 1. Respiratory Failure: On Spiriva for probable COPD. Breathing ok. PT/OT. O2, 2.5 lpm via [place] 2. NSTEMI: Cardiology follow up re: Nuclear Stress test, need for cath. Lipitor/ Altace/ASA/Plavix/Toprol 3. Memory problems: Have ordered REGIONAL BUSINESS DEVELOPMENT MANAGER 4. CHF: lasix 5. DVT Prophylaxis: Heparin S/Q 6. Advanced Directives: Has MOLST. DNR. Can intubate for respiratory failure 7. Influenza: Had Tamiflu. Stable 8. Ringworm: topical clotrimazole 08/16/17 16:29
[2017-08-16] MEDS: Atorvastatin* 40 MG TAB PO SCH (17:09)
[2017-08-17] MEDS: Heparin VIAL(*) 5000 UNITS/ML VIAL (FIVE THOUSAND) SUBCUT SCH ×3 (05:10→21:32)
[2017-08-17] MEDS: Furosemide TAB* 40 MG PO SCH (09:13)
[2017-08-17] MEDS: Metoprolol Succinate XL TAB* 25 MG PO SCH ×2 (09:13→20:15)
[2017-08-17] MEDS: Clotrimazole 1% CREAM* 45 GM TOPICAL SCH ×2 (09:13→19:12)
[2017-08-17] MEDS: Clopidogrel TAB* 75 MG PO SCH (09:13)
[2017-08-17] MEDS: Ramipril CAP* 2.5 MG PO SCH (09:13)
[2017-08-17] MEDS: Aspirin EC TAB* 81 MG TAB.EC PO SCH (09:14)
[2017-08-17] MEDS: Potassium Chlor TAB* 20 MEQ TAB.ER PO SCH (09:14)
[2017-08-17] MEDS: Docusate CAP* 100 MG PO SCH ×2 (09:14→20:15)
[2017-08-17] MEDS: Tiotropium CAP.INH* CAP.INH/18 MCG (USE ORDER SET !) INH SCH (09:17)
--- NOTE | 2017-08-17 13:09 | PMRUTEAM ---
PMRU: Team Meeting Current Status: Nursing: Current Status Skin Deviations [Right Lower Bruise Abdomen] Skin Deviations [Bilateral Other Foot] Skin Deviation Description [ - none] Skin Deviation Description [ d/t Heparin injections Right Lower Abdomen] Skin Deviation Description [ dry skin Bilateral Foot] Physical Therapy: Current Status Bed Mobility Assistance Supervision Transfer Moblility Assistance Supervision Transfer/Bed Mobility Rolling Walker Recommended Devices Transfer Mobility Comment S x 1 using 2 w/w Ambulation Assistance Supervision Ambulation Assistive Devices Rolling Walker Number of Feet Patient 150' Ambulated Stairs Assistance Supervision Stairs Recommended Devices Two Rails Number of Stairs 10 Occupational Therapy: Current Status Upper Body Dressing Min Assist Lower Body Dressing Mod Assist Bathing Min Assist Toileting Min Assist Toilet Transfer Supervision Shower Transfer Min Assist Shower Transfer Progress n/a--pt refuses Eating Independent,Supervision Rec Therapy: Current Status Summary of Assessment and RT assessment complete and pt. is aware of RT Clinical Impression services. Pt. is social during leisure visits and tends to have visitors in the afternoon. Treatment Goals Pt. will engage in recreation and leisure activities while on the unit. Treatment Plan Provide RT services and encourage involvement. Social Work: Current Status Discharge Plan return home with home care svs and family support Potential for Family Training pt's daughter is involved and supportive Anticipated Discharge Home Destination Discharge With home care svs and family support Nutrition: Current Status Monitoring pt eating 50-100% of meals, so reduced somewhat since hos first three days on PMRU (when he ate 100%). Had BM 4/1 and 4/2. Denies difficulty chewing or swallowing. Weight appears stable since 2016 adm (208-210#) and he presently does not exhibit s/sx malnutrition. Lives w/daughter (has two - Riri and Bee). Suggest liberating diet to only DEBBIE to allow more freedom in menu choices to help improve appetite. Speech: Current Status Assessment Patient is progressing slowly as exected. Goals: Physical Therapy: Initial Goals Bed Mobility Assistance Independent Transfer Mobility Assistance Independent Transfer/Bed Mobility Rolling Walker Recommended Devices Ambulation Independent Ambulation Recommended Devices Rolling Walker Ambulation Distance 150 Stairs Assistance Independent Stair Recommended Devices Two Rails Number of Stairs 10 Physical Therapy: Updated Goals Bed Mobility Assistance Independent Transfer Mobility Assistance Independent Transfer/Bed Mobility Rolling Walker Recommended Devices Ambulation Assistance Independent Ambulation Assistive Devices Rolling Walker Ambulation Distance (ft) 152 Stairs Assistance Independent Stairs Recommended Devices Two Rails Number of Stairs 10 Occupational Therapy: Initial Goals Goals to be Completed in (Days 10-14 days ) Upper Body Bathing Routine Modified Independent with Lower Body Bathing Routine Modified Independent with Upper Body Dressing Routine Independent Lower Body Dressing Routine Minimal Contact Assist Toilet Hygeine and Clothing Modified Independent with Management Routine Toilet Transfer Routine Modified Independent with Tub Transfer Routine Modified Independent with Functional Transfers for ADL Modified Independent with Grooming Routine Independent Feeding Routine Independent Light Housekeeping Tasks Minimal Contact Assist Nutrition: Goals Intervention Goals 1. adequate po intake to maintain hydration and lean body mass without add'l wt gain 2. maintain regulated bowel pattern; no c/o diarrhea (or constipation) 3. skin integrity will remain intact; no evidence of skin breakdown Speech: Goals Speech Goal 1 Comprehension Goal 1 Comments Long-term Goal: The patient will comprehend functional instructions with 95% accuracy given compensatory communication strategies. Short-Term Goal: The patient will comprehend functional instructions with 75% accuracy given compensatory communication strategies. Status: Progressing as expected. Patient I'ly repeated and followed 2-step verbal directions with 80% accuracy. For 3-step directions, patient followed 2/3 steps with 80% accuracy, and required review and maximim cueing to follw third; even given instruction and practice, pt did not recall and follow any sequences of 3 directions. Speech Goal 2 Problem Solving Speech Goal 2 Comments Long-Term Goal: Patient will use compensatory strategies to solve moderately complex routine problems with 95% accuracy with minimal cueing. Short-Term Goal: Patient will use compensatory strategies to solve simple routine problems with 75% accuracy with moderate cueing. Status: Met, see reivsed goal below. The patient read and marked his daily memnu choices given minimal cueing and correction. The patient read and followed 5 spatial directions to [place] 2 graphical worksheets. On the third, therapist modified activity to have patient read 2 -step directions on one side and markthe other: patient required moderate cueing and completed 2/5 I'ly. Short-Term Goal: Patient will use compensatory strategies to solve simple routine problems with 75% accuracy with maximal cueing. Speech Goal 3 Memory Speech Goal 3 Comments Long-Term Goal: The patient will use compensatory strategies to encode and retrieve 4/4 new items after delay given minimal cueing for maximal independence in mobility safety, ADLs, and community access. Short-Term Goal: The patient will use compensatory strategies to encode and retrieve 4/4 new items after delay given moderate cueing for maximal independence in mobility safety, ADLs, and community access. Status: Progressing as expected. NEWSPAPER WRITER presented printed directions with illustrations for modified 3-step mobility safety precautions and sequences for walker use, then had patient simplify each to two words, copy out, and reclal. Patient recalled 2/3 of each I'ly, and continued to require moderate cuing to recall 3/3. At end of session, when patient requested to use bathroom, pt was cued, then patient used call morgan and waited for his aide. Social Work: Goals Discharge Plan return home with home care svs and family support Potential for Family Training pt's daughter is involved and supportive Anticipated Discharge Home Destination Discharge With home care svs and family support Care Plan: Care Plan ADL's - Improve/Maintain Start: 08/10/17 00:01 Freq: DAILY@1200 Status: Active Target: Protocol: Activity Type Activity Date Activity User E-Sign Co-Sign Detail Recorded Client Recorded Date Recorded By Document 08/14/17 12:19 [id number] 08/14/17 12:19 [id number] 08/14/17 12:19 PMRU Outcome: ADL's/ADL Transfers Orders/Interventions Occupational Therapy Evaluation & Treatment Communication Tool in Patient Room Device Yes Patient to receive OT 5x/wk for 60-120 Therex min/day Self Care Management Group Therapy UE/LE ADL's with Assist Yes ADL Transfers with Assist Yes Toileting: Transfers,Clothing Management Yes ,Hygeine w/Assist Light Kitchen/Laundry w/Assist Yes Progression Toward Outcome/Goals Progressing Outcome/Goals Met Pt participated well in OT treatment session, able to participate in standing activities and tolerated UBE well. Will benefit from continued skilled OT to maximize independence and safety. Communication-Improve/Maintain Start: 08/11/17 15:42 Freq: DAILY@1200 Status: Active Target: Protocol: Activity Type Activity Date Activity User E-Sign Co-Sign Detail Recorded Client Recorded Date Recorded By Document 08/14/17 22:17 [id number] 08/14/17 22:18 [id number] 08/14/17 22:17 PMRU Outcome: Communication/Cognitive Status Outcome/Goals Other Other Outcomes/Goals Comprehension Long-term Goal: The patient will comprehend functional instructions with 95% accuracy given compensatory communication strategies. Short-Term Goal : The patient will comprehend functional instructions with 75% accuracy given compensatory communication strategies. Status: Patient required that directions be broken down into simple pieces and repeated for patient to repeat back directions and attempt to follow them. Problem Solving Long-Term Goal: Patient will use compensatory strategies to solve moderately complex routine problems with 95% accuracy with minimal cueing. Short-Term Goal : Patient will use compensatory strategies to solve simple routine problems with 75% accuracy with maximal cueing. Status: For safety problems , the patient required maximal cueing, repetition of all details, and instruction in the safety point. For practical math problems, the patient requires maximal cueing, repetition, and paper and pencil demonstration. Memory Long-Term Goal: The patient will use compensatory strategies to encode and retrieve 4/4 new items after delay given minimal cueing for maximal independence in mobility safety, ADLs, and community access. Short-Term Goal : The patient will use compensatory strategies to encode and retrieve 4/4 new items after delay given moderate cueing for maximal independence in mobility safety, ADLs, and community access. Progression Toward Outcomes/Goals Progressing DVT Prophylaxis- Improve/Maintain Start: 08/10/17 00:01 Freq: DAILY@1200 Status: Active Target: Protocol: Activity Type Activity Date Activity User E-Sign Co-Sign Detail Recorded Client Recorded Date Recorded By Document 08/17/17 00:13 [id number] 08/17/17 00:15 [id number] 08/17/17 00:13 PMRU Outcome: DVT Prophylaxis Outcome/Goals Remains Free of DVT TEDS Stockings on Every AM, Off at HS Progression Toward Outcome/Goals Progressing Discharge Planning - Improve/Maintain Start: 08/10/17 00:01 Freq: DAILY@1200 Status: Active Target: Protocol: Activity Type Activity Date Activity User E-Sign Co-Sign Detail Recorded Client Recorded Date Recorded By Document 08/14/17 22:17 [id number] [id number] 08/14/17 22:18 [id number] 08/14/17 22:17 PMRU Outcome: Discharge Planning Identify Patient Needs yes Update Patient Family No Outcome/Goals Demonstrates Understanding of Discharge Plan Progression Toward Outcome/Goals Progressing Education-Improve/Maintain Start: 08/10/17 00:01 Freq: DAILY@1200 Status: Active Target: Protocol: Activity Type Activity Date Activity User E-Sign Co-Sign Detail Recorded Client Recorded Date Recorded By Document 08/17/17 00:13 [id number] [id number] 08/17/17 00:15 [id number] 08/17/17 00:13 PMRU Outcome: Education Outcome/Goals Demonstrate/ Verbalize Understanding of Written Discharge Instructions Demonstrates Skills Encourage Questions Progression Toward Outcome/Goals Progressing /GI-Improve/Maintain Start: 08/10/17 00:01 Freq: DAILY@1200 Status: Active Target: Protocol: Activity Type Activity Date Activity User E-Sign Co-Sign Detail Recorded Client Recorded Date Recorded By Document 08/17/17 00:13 [id number] 08/17/17 00:15 [id number] 08/17/17 00:13 PMRU Outcome: Genitourinary/ Gastrointestinal Genitourinary- Outcome/Goals Maintain/ Achieve Urinary Continence Maintain/ Achieve Adequate Urinary Output Remain Free of Hospital- Acquired UTI Gastrointestinal-Outcome/Goals Maintain/ Achieve Bowel Regularity in Accordance with Pt's Baseline Prevent Constipation Progression Toward Outcome/Goals - Progressing Progression Toward Outcome/Goals - GI Progressing Mobility- Improve/Maintain Start: 08/10/17 00:01 Freq: DAILY@1200 Status: Active Target: Protocol: Activity Type Activity Date Activity User E-Sign Co-Sign Detail Recorded Client Recorded Date Recorded By Document 08/16/17 12:09 [id number] [id number] 08/16/17 12:09 [id number] 08/16/17 12:09 PMRU Outcome: Mobility Physical Therapy Evaluation and Yes Treatment Activity OOB with Assistance Yes WBAT Yes Device Yes Assistance Yes Patient to be seen 5x/wk for 60-120 min/ Therex day for: Mobility Training Gait Training Balance Outcome/Goals Maintain/ Achieve Baseline Mobility Status Improve Mobility Status Demonstrates Proper Use of Assistive Devices Free from Complications of Immobility Progression Toward Outcome/Goals Progressing Bed Mobility Yes: independent Transfers Yes: independent with rolling walker Gait x ft Yes: independent with rolling walker 150' Up/Down Stairs Yes: independent up/ down 10 stairs. Neurological- Improve/Maintain Start: 08/10/17 00:01 Freq: DAILY@1200 Status: Active Target: Protocol: Activity Type Activity Date Activity User E-Sign Co-Sign Detail Recorded Client Recorded Date Recorded By Document 08/17/17 00:13 [id number] 08/17/17 00:15 [id number] 08/17/17 00:13 PMRU Outcome: Neurological Weakness/Aphasia Weakness Outcome/Goals Maintain/ Achieve Baseline Neurological Status Improve Neurological Status Maintain/ Improve Strength/ROM Progression Toward Outcome/Goals Progressing Respiratory - Improve/Maintain Start: 08/10/17 00:01 Freq: DAILY@1200 Status: Active Target: Protocol: Activity Type Activity Date Activity User E-Sign Co-Sign Detail Recorded Client Recorded Date Recorded By Document 08/17/17 00:13 [id number] 08/17/17 00:15 [id number] 08/17/17 00:13 PMRU Outcome: Respiratory Does Patient Have a Trach No Outcome/Goals Maintain/ Improve O2 Sat per MD Order Maintain/ Improve Activity Tolerance Progression Toward Outcome/Goals Progressing Outcome/Goals Met Comment humidified [address] Safety- Improve/Maintain Start: 08/10/17 00:01 Freq: DAILY@1200 Status: Active Target: Protocol: Activity Type Activity Date Activity User E-Sign Co-Sign Detail Recorded Client Recorded Date Recorded By Document 08/17/17 00:13 [id number] 08/17/17 00:15 [id number] 08/17/17 00:13 PMRU Outcome: Safety Outcome/Goals Remain Free of Injury or Harm Cooperates with Safety Measures for Least Restrictive Environment Prevent Falls/ Injury Progression Toward Outcome/Goals Not Progressing Outcome/Goals Met Comment PA in place Medicine Note: Length of Stay: 7 days Anticipated Discharge Destination: Home Tentative Discharge Date: 08/24/17 Discharged to: home
[2017-08-17] MEDS: Atorvastatin* 40 MG TAB PO SCH (16:35)
--- NOTE | 2017-08-17 18:03 | PN ---
Progress Note Date of Service: 08/17/17 Note: AVEL JAMES was visited. Therapy notes read and reviewed. He was discussed in interdisciplinary team rounds. His daughter will have family training to see if she can manage at home. Current Medications: Active Medications Generic Name Dose Route Start Last Admin Trade Name Freq PRN Reason Stop Dose Admin Acetaminophen 650 mg 08/09/17 16:18 Tylenol Tab* PO Q6H PRN FEVER/PAIN Albuterol 2 puff 08/09/17 17:59 08/15/17 10:39 Ventolin Hfa Inhaler* INH 2 puff Q6H PRN Administration SOB/WHEEZING Albuterol/Ipratropium 1 neb 08/09/17 18:00 08/15/17 16:22 Duoneb (Albuterol 2.5 Mg/Ipratropium 0.5 Mg) INH 1 neb Q6H PRN Administration SOB/WHEEZING Aspirin 81 mg 08/10/17 09:00 08/17/17 09:14 Aspirin Ec Low Dose* PO 81 mg DAILY BERENICE Administration Atorvastatin Calcium 40 mg 08/09/17 17:00 08/17/17 16:35 Lipitor* PO 40 mg 1700 BERENICE Administration Clopidogrel Bisulfate 75 mg 08/10/17 09:00 08/17/17 09:13 Plavix Tab* PO 75 mg DAILY BERENICE Administration Clotrimazole 1 applic 08/15/17 21:00 08/17/17 09:13 Clotrimazole 1%* TOPICAL 1 applic BID BERENICE Administration Device 1 each 08/10/17 09:00 Tiotropium Inhaler Device* .SEE ORDER .USE w/ SPIRIVA CAPS BERENICE Docusate Sodium 100 mg 08/09/17 21:00 08/17/17 09:14 Colace Cap* PO 100 mg BID BERENICE Administration Furosemide 40 mg 08/10/17 09:00 08/17/17 09:13 Lasix Tab* PO 40 mg DAILY BERENICE Administration Heparin Sodium (Porcine) 5,000 units 08/09/17 22:00 08/17/17 14:37 Heparin Vial(*) SUBCUT 5,000 units Q8HR BERENICE Administration Magnesium Hydroxide 30 ml 08/09/17 16:18 08/14/17 21:25 Milk Of Magnesia Liq* PO 30 ml Q6H PRN Administration CONSTIPATION Metoprolol Succinate 25 mg 08/09/17 21:00 08/17/17 09:13 Toprol Xl Tab* PO 25 mg BID BERENICE Administration Potassium Chloride 20 meq 08/10/17 09:00 08/17/17 09:14 Klor Con Er Tab* PO 20 meq DAILY BERENICE Administration Ramipril 2.5 mg 08/10/17 09:00 08/17/17 09:13 Altace Cap* PO 2.5 mg DAILY BERENICE Administration Senna 2 tab 08/09/17 16:18 Senokot Tab* PO BEDTIME PRN CONSTIPATION Tiotropium [place] 1 cap 08/10/17 09:00 08/17/17 09:17 Spiriva Cap.Inh* INH 1 cap DAILY BERENICE Administration Vital Signs: Vital Signs Temp Pulse Resp BP Pulse Ox 98.2 F 72 20 110/56 100 08/17/17 16:08 08/17/17 16:08 08/17/17 16:08 08/17/17 16:08 08/17/17 16:08 Exam: LUNGS: Clear HEART: reg rhythm ABDOMEN: Soft, +BS. 2 abdominal lesions c/w tinea corporis EXTREMITIES: Normal tone Assessment/Plan: 1. Respiratory Failure: On Spiriva for probable COPD. Breathing ok. PT/OT. O2, 2.5 lpm via NC 2. NSTEMI: Cardiology follow up re: Nuclear Stress test, need for cath. Lipitor/ Altace/ASA/Plavix/Toprol 3. Memory problems: Have ordered DEPUTY COURT CLERK 4. CHF: lasix 5. DVT Prophylaxis: Heparin S/Q 6. Advanced Directives: Has MOLST. DNR. Can intubate for respiratory failure 7. Influenza: Had Tamiflu. Stable 8. Ringworm: topical clotrimazole 08/17/17 18:03
[2017-08-18] MEDS: Heparin VIAL(*) 5000 UNITS/ML VIAL (FIVE THOUSAND) SUBCUT SCH ×3 (05:25→21:31)
[2017-08-18 06:49] LABS: ABS Basophils 0 10^3/ul (0-0.2); ABS Eosinophils 0.1 10^3/ul (0-0.6); ABS Monocytes 0.9 10^3/ul (0-0.8); ABS Neutrophils 3.2 10^3/ul (1.5-7.7); ABS Nucleated RBC 0 10^3/ul; Eosinophil % 2.2 % (0-6); Hematocrit 40 % (42-52); Hemoglobin 13.3 g/dl (14.0-18.0); Lymphocyte % 18.2 % (25-47); Mean Corpuscular HGB Conc 33 g/dl (31-36); Mean Corpuscular Hemoglobin 32 pg (27-31); Mean Corpuscular Volume 96 fL (80-94); Mean Platelet Volume 10.8 um3 (7.4-10.4); Nucleated Red Blood Cells % 0; Platelet Count 115 10^3/ul (150-450); Red Blood Count 4.18 10^6/ul (4.0-5.4); Red Cell Distribution Width 15 % (10.5-15); White Blood Count 5.3 10^3/ul (3.5-10.8)
[2017-08-18 07:06] LABS: EGFR Non-African American 114.2 (>60)
[2017-08-18] MEDS: Metoprolol Succinate XL TAB* 25 MG PO SCH ×2 (07:40→20:15)
[2017-08-18] MEDS: Ramipril CAP* 2.5 MG PO SCH (07:40)
[2017-08-18] MEDS: Potassium Chlor TAB* 20 MEQ TAB.ER PO SCH (07:40)
[2017-08-18] MEDS: Clotrimazole 1% CREAM* 45 GM TOPICAL SCH ×2 (07:40→20:20)
[2017-08-18] MEDS: Clopidogrel TAB* 75 MG PO SCH (07:40)
[2017-08-18] MEDS: Furosemide TAB* 40 MG PO SCH (07:40)
[2017-08-18] MEDS: Aspirin EC TAB* 81 MG TAB.EC PO SCH (07:40)
[2017-08-18] MEDS: Docusate CAP* 100 MG PO SCH ×2 (07:41→20:15)
[2017-08-18] MEDS: Tiotropium CAP.INH* CAP.INH/18 MCG (USE ORDER SET !) INH SCH (07:41)
[2017-08-18] MEDS: Atorvastatin* 40 MG TAB PO SCH (17:09)
[2017-08-18] MEDS: Senna TAB PO PRN (20:15)
--- NOTE | 2017-08-18 22:58 | PN ---
Progress Note Date of Service: 08/18/17 Note: AVEL JAMES was visited. Therapy notes read and reviewed. He is doing okay. His daughter has come in for training. Current Medications: Active Medications Generic Name Dose Route Start Last Admin Trade Name Freq PRN Reason Stop Dose Admin Acetaminophen 650 mg 08/09/17 16:18 Tylenol Tab* PO Q6H PRN FEVER/PAIN Albuterol 2 puff 08/09/17 17:59 08/15/17 10:39 Ventolin Hfa Inhaler* INH 2 puff Q6H PRN Administration SOB/WHEEZING Albuterol/Ipratropium 1 neb 08/09/17 18:00 08/15/17 16:22 Duoneb (Albuterol 2.5 Mg/Ipratropium 0.5 Mg) INH 1 neb Q6H PRN Administration SOB/WHEEZING Aspirin 81 mg 08/10/17 09:00 08/18/17 07:40 Aspirin Ec Low Dose* PO 81 mg DAILY BERENICE Administration Atorvastatin Calcium 40 mg 08/09/17 17:00 08/18/17 17:09 Lipitor* PO 40 mg 1700 BERENICE Administration Clopidogrel Bisulfate 75 mg 08/10/17 09:00 08/18/17 07:40 Plavix Tab* PO 75 mg DAILY BERENICE Administration Clotrimazole 1 applic 08/15/17 21:00 08/18/17 20:20 Clotrimazole 1%* TOPICAL 1 applic BID BERENICE Administration Device 1 each 08/10/17 09:00 Tiotropium Inhaler Device* .SEE ORDER .USE w/ SPIRIVA CAPS BERENICE Docusate Sodium 100 mg 08/09/17 21:00 08/18/17 20:15 Colace Cap* PO 100 mg BID BERENICE Administration Furosemide 40 mg 08/10/17 09:00 08/18/17 07:40 Lasix Tab* PO 40 mg DAILY BERENICE Administration Heparin Sodium (Porcine) 5,000 units 08/09/17 22:00 08/18/17 21:31 Heparin Vial(*) SUBCUT 5,000 units Q8HR BERENICE Administration Magnesium Hydroxide 30 ml 08/09/17 16:18 08/14/17 21:25 Milk Of Magnesia Liq* PO 30 ml Q6H PRN Administration CONSTIPATION Metoprolol Succinate 25 mg 08/09/17 21:00 08/18/17 20:15 Toprol Xl Tab* PO 25 mg BID BERENICE Administration Potassium Chloride 20 meq 08/10/17 09:00 08/18/17 07:40 Klor Con Er Tab* PO 20 meq DAILY BERENICE Administration Ramipril 2.5 mg 08/10/17 09:00 08/18/17 07:40 Altace Cap* PO 2.5 mg DAILY BERENICE Administration Senna 2 tab 08/09/17 16:18 08/18/17 20:15 Senokot Tab* PO 2 tab BEDTIME PRN Administration CONSTIPATION Tiotropium [place] 1 cap 08/10/17 09:00 08/18/17 07:41 Spiriva Cap.Inh* INH 1 cap DAILY BERENICE Administration Vital Signs: Vital Signs Temp Pulse Resp BP Pulse Ox 98.9 F 71 18 109/51 100 08/18/17 16:40 08/18/17 16:40 08/18/17 16:40 08/18/17 16:40 08/18/17 17:42 Lab Results: Laboratory Results - last 24 hr 08/18/17 08/18/17 06:41 06:41 WBC 5.3 RBC 4.18 Hgb 13.3 L Hct 40 L MCV 96 H MCH 32 H MCHC 33 RDW 15 Plt Count 115 L MPV 10.8 H Neut % (Auto) 61.0 Lymph % (Auto) 18.2 L [place] % (Auto) 17.8 H Eos % (Auto) 2.2 Baso % (Auto) 0.8 Absolute Neuts (auto) 3.2 Absolute Lymphs (auto) 1.0 Absolute Monos (auto) 0.9 H Absolute Eos (auto) 0.1 Absolute Basos (auto) 0 Absolute Nucleated RBC 0 Nucleated RBC % 0 Sodium 136 L Potassium 4.0 Chloride 103 Carbon Dioxide 27 Anion Gap 6 BUN 13 Creatinine 0.66 L Est GFR ( Amer) 146.8 Est GFR (Non-Af Amer) 114.2 BUN/Creatinine Ratio 19.7 Glucose 94 Calcium 9.2 Total Bilirubin 0.60 AST 30 ALT 40 Alkaline Phosphatase 48 Total Protein 6.7 Albumin 3.9 Globulin 2.8 Albumin/Globulin Ratio 1.4 Exam: LUNGS: Clear HEART: reg rhythm ABDOMEN: Soft, +BS. 2 abdominal lesions c/w tinea corporis EXTREMITIES: Normal tone Assessment/Plan: 1. Respiratory Failure: On Spiriva for probable COPD. Breathing ok. PT/OT. O2, 2.5 lpm via NC 2. NSTEMI: Cardiology follow up re: Nuclear Stress test, need for cath. Lipitor/ Altace/ASA/Plavix/Toprol 3. Memory problems: Have ordered REDRYING MACHINE OPERATOR 4. CHF: lasix 5. DVT Prophylaxis: Heparin S/Q 6. Advanced Directives: Has MOLST. DNR. Can intubate for respiratory failure 7. Influenza: Had Tamiflu. Stable 8. Ringworm: topical clotrimazole 08/18/17 22:58
[2017-08-19] MEDS: Heparin VIAL(*) 5000 UNITS/ML VIAL (FIVE THOUSAND) SUBCUT SCH ×3 (06:17→21:33)
[2017-08-19] MEDS: Docusate CAP* 100 MG PO SCH ×2 (08:26→20:38)
[2017-08-19] MEDS: Potassium Chlor TAB* 20 MEQ TAB.ER PO SCH (08:26)
[2017-08-19] MEDS: Metoprolol Succinate XL TAB* 25 MG PO SCH ×2 (08:26→20:38)
[2017-08-19] MEDS: Clotrimazole 1% CREAM* 45 GM TOPICAL SCH ×2 (08:26→20:39)
[2017-08-19] MEDS: Tiotropium CAP.INH* CAP.INH/18 MCG (USE ORDER SET !) INH SCH (08:26)
[2017-08-19] MEDS: Furosemide TAB* 40 MG PO SCH (08:26)
[2017-08-19] MEDS: Clopidogrel TAB* 75 MG PO SCH (08:26)
[2017-08-19] MEDS: Aspirin EC TAB* 81 MG TAB.EC PO SCH (08:26)
[2017-08-19] MEDS: Ramipril CAP* 2.5 MG PO SCH (08:26)
[2017-08-19 16:33] VITALS: BP 107/60
--- NOTE | 2017-08-19 16:48 | PN ---
Progress Note Date of Service: 08/19/17 Note: AEVL JAMES was visited. Therapy notes read and reviewed. He will be going home tomorrow. Overall, he feels pretty well. Daughter has gone through training Current Medications: Active Medications Generic Name Dose Route Start Last Admin Trade Name Freq PRN Reason Stop Dose Admin Acetaminophen 650 mg 08/09/17 16:18 Tylenol Tab* PO Q6H PRN FEVER/PAIN Albuterol 2 puff 08/09/17 17:59 08/15/17 10:39 Ventolin Hfa Inhaler* INH 2 puff Q6H PRN Administration SOB/WHEEZING Albuterol/Ipratropium 1 neb 08/09/17 18:00 08/15/17 16:22 Duoneb (Albuterol 2.5 Mg/Ipratropium 0.5 Mg) INH 1 neb Q6H PRN Administration SOB/WHEEZING Aspirin 81 mg 08/10/17 09:00 08/19/17 08:26 Aspirin Ec Low Dose* PO 81 mg DAILY BERENICE Administration Atorvastatin Calcium 40 mg 08/09/17 17:00 08/18/17 17:09 Lipitor* PO 40 mg 1700 BERENICE Administration Clopidogrel Bisulfate 75 mg 08/10/17 09:00 08/19/17 08:26 Plavix Tab* PO 75 mg DAILY BERENICE Administration Clotrimazole 1 applic 08/15/17 21:00 08/19/17 08:26 Clotrimazole 1%* TOPICAL 1 applic BID BERENICE Administration Device 1 each 08/10/17 09:00 Tiotropium Inhaler Device* .SEE ORDER .USE w/ SPIRIVA CAPS BERENICE Docusate Sodium 100 mg 08/09/17 21:00 08/19/17 08:26 Colace Cap* PO 100 mg BID BERENICE Administration Furosemide 40 mg 08/10/17 09:00 08/19/17 08:26 Lasix Tab* PO 40 mg DAILY BERENICE Administration Heparin Sodium (Porcine) 5,000 units 08/09/17 22:00 08/19/17 14:36 Heparin Vial(*) SUBCUT 5,000 units Q8HR BERENICE Administration Magnesium Hydroxide 30 ml 08/09/17 16:18 08/14/17 21:25 Milk Of Magnesia Liq* PO 30 ml Q6H PRN Administration CONSTIPATION Metoprolol Succinate 25 mg 08/09/17 21:00 08/19/17 08:26 Toprol Xl Tab* PO 25 mg BID BERENICE Administration Potassium Chloride 20 meq 08/10/17 09:00 08/19/17 08:26 Klor Con Er Tab* PO 20 meq DAILY BERENICE Administration Ramipril 2.5 mg 08/10/17 09:00 08/19/17 08:26 Altace Cap* PO 2.5 mg DAILY BERENICE Administration Senna 2 tab 08/09/17 16:18 08/18/17 20:15 Senokot Tab* PO 2 tab BEDTIME PRN Administration CONSTIPATION Tiotropium [place] 1 cap 08/10/17 09:00 08/19/17 08:26 Spiriva Cap.Inh* INH 1 cap DAILY BERENICE Administration Vital Signs: Vital Signs Temp Pulse Resp BP Pulse Ox 98.1 F 70 18 107/60 100 08/19/17 16:26 08/19/17 16:26 08/19/17 16:26 08/19/17 16:26 08/19/17 16:26 Exam: LUNGS: Clear HEART: reg rhythm ABDOMEN: Soft, +BS. 2 abdominal lesions c/w tinea corporis EXTREMITIES: Normal tone Assessment/Plan: 1. Respiratory Failure: On Spiriva for probable COPD. Breathing ok. PT/OT. O2, 2.5 lpm via NC 2. NSTEMI: Cardiology follow up re: Nuclear Stress test, need for cath. Lipitor/ Altace/ASA/Plavix/Toprol 3. Memory problems: Have ordered C.O.D. BILLER 4. CHF: lasix 5. DVT Prophylaxis: Heparin S/Q 6. Advanced Directives: Has MOLST. DNR. Can intubate for respiratory failure 7. Influenza: Had Tamiflu. Stable 8. Ringworm: topical clotrimazole 08/19/17 16:48
[2017-08-19] MEDS: Atorvastatin* 40 MG TAB PO SCH (17:01)
[2017-08-19] MEDS: Senna TAB PO PRN (20:38)
[2017-08-20] MEDS: Heparin VIAL(*) 5000 UNITS/ML VIAL (FIVE THOUSAND) SUBCUT SCH (05:27)
[2017-08-20] MEDS: Tiotropium CAP.INH* CAP.INH/18 MCG (USE ORDER SET !) INH SCH (08:14)
[2017-08-20] MEDS: Ramipril CAP* 2.5 MG PO SCH (08:14)
[2017-08-20] MEDS: Potassium Chlor TAB* 20 MEQ TAB.ER PO SCH (08:14)
[2017-08-20] MEDS: Metoprolol Succinate XL TAB* 25 MG PO SCH (08:14)
[2017-08-20] MEDS: Docusate CAP* 100 MG PO SCH (08:15)
[2017-08-20] MEDS: Clopidogrel TAB* 75 MG PO SCH (08:15)
[2017-08-20] MEDS: Clotrimazole 1% CREAM* 45 GM TOPICAL SCH (08:15)
[2017-08-20] MEDS: Aspirin EC TAB* 81 MG TAB.EC PO SCH (08:15)
[2017-08-20] MEDS: Furosemide TAB* 40 MG PO SCH (08:16)
--- NOTE | 2017-08-24 03:33 | DS ---
CC: Dr. Shante Reyes DISCHARGE SUMMARY: DATE OF ADMISSION: 08/09/17 DATE OF DISCHARGE: 08/20/17 DISCHARGE DIAGNOSES: 1. Respiratory failure. 2. Chronic obstructive pulmonary disease. 3. Non-ST elevation ND. 4. Congestive heart failure. 5. Influenza. 6. Tinea corporis. HISTORY OF ILLNESS AND HOSPITAL COURSE: For complete history of the events leading up to his rehab s [facility], please see the history and physical dictated by me on 08/09/17. While on the rehab unit, the mikie dimas remained fairly stable from a medical point of view. He did remain on supplemental oxygen via nasal cannula, which he was on prior to admission. His Lasix was restarted. He had memory problems, some of which seemed to predate his episode of respiratory failure with the flu. The patient was se en by Physical Therapy, Occupational Therapy, and Speech Therapy and made good gains with all discipl perry. With physical therapy at the time of admission, the patient required min assist to do a transf er. He was min assist to ambulate about 40 feet. With occupational therapy at the time of admission , the patient required min assist for upper body dressing, mod assist for lower body dressing, min as sist for grooming, mod assist for toileting, and min assist for toilet transfers. By the time of dis charge, the patient was supervision for transfer, supervision going up and down the flight of stairs, supervision ambulating 150 feet, supervision for tub transfers, supervision for toilet transfers and toileting. He did require some assistance getting his socks on. The patient's daughter came in for family training prior to admission. The patient also was seen by Speech Therapy while on the rehab unit because of episodes of confusion. He did improve dramatically with his safety awareness and mem ory ability while on the rehab unit. It was noted he still required a little extra time for processi ng instructions. The patient was discharged home with his daughter, who would provide 24-hour superv ision on 08/20/17. DISCHARGE DIET: Heart healthy. DISCHARGE MEDICATIONS: 1. Aspirin 81 mg daily. 2. Plavix 75 mg daily. 3. Lasix 40 mg daily. 4. Toprol-XL 25 mg twice daily. 5. Potassium chloride 20 mEq daily. 6. Altace 2.5 mg daily. 7. Spiriva 1 capsule inhaled daily. SERVICES AFTER DISCHARGE: Through the visiting nurse services. He will have home nursing, home phys ical therapy, and a home health aide. FOLLOWUP: Follow up with Dr. Shante Reyes in 1 to 2 weeks. He will also follow up with Dr. Rick Chaney regarding his nuclear stress test in 2 to 4 weeks. [id number]/[facility] #: [id number]
== END 2017-08-20 11:45 | disposition home or self-care (01) | DRG 945 ==
LOC: PMRU 15:31
PROVIDERS: ADMIT Physical Medicine & Rehabilitation; ATTEND Physical Medicine & Rehabilitation
PROC: F07Z5ZZ Bed Mobility Treatment (ICD-10-PCS; principal; 2017-08-09)
PROC: F07Z9ZZ Gait Training/Functional Ambulation Treatment (ICD-10-PCS; 2017-08-09)
PROC: F07Z8ZZ Transfer Training Treatment (ICD-10-PCS; 2017-08-09)
PROC: F08Z0ZZ Bathing/Showering Techniques Treatment (ICD-10-PCS; 2017-08-09)
PROC: F08Z1ZZ Dressing Techniques Treatment (ICD-10-PCS; 2017-08-09)
PROC: F08Z3ZZ Feeding/Eating Treatment (ICD-10-PCS; 2017-08-09)
DX: R53.1 Weakness (principal); I21.4 Non-ST elevation (NSTEMI) myocardial infarction; I25.119 Atherosclerotic heart disease of native coronary artery with unspecified angina pectoris; I11.0 Hypertensive heart disease with heart failure; I50.9 Heart failure, unspecified; E78.5 Hyperlipidemia, unspecified; F06.8 Other specified mental disorders due to known physiological condition; B35.9 Dermatophytosis, unspecified; J11.1 Influenza due to unidentified influenza virus with other respiratory manifestations; J44.9 Chronic obstructive pulmonary disease, unspecified; Z66 Do not resuscitate; I35.0 Nonrheumatic aortic (valve) stenosis; Z95.5 Presence of coronary angioplasty implant and graft; Z79.01 Long term (current) use of anticoagulants; Z95.1 Presence of aortocoronary bypass graft; Z79.02 Long term (current) use of antithrombotics/antiplatelets; Z79.82 Long term (current) use of aspirin; Z79.899 Other long term (current) drug therapy; Z88.8 Allergy status to other drugs, medicaments and biological substances; Z87.891 Personal history of nicotine dependence
CPT/HCPCS: 36415; 80053; 85025; 94640; 94760; A9270-GY; J1644

== ENCOUNTER 2018-04-20 07:57 | Emergency (ER) | payer MEDICARE ==
--- NOTE | 2018-04-20 08:11 | ED ---
Shortness of Breath - HPI Summary HPI Summary: Patient is a 87 y/o M presenting to ED with complaints of SOB, productive cough , increased heart rate, right-sided chest pain. Patient is on 2 L o2 at home. Patient's daughter, who was present in the room, notes PMHx of PNA in patient. He is a former smoker, quit 18 years ago. Patient denies Hx of emphysema. In room, patient is 94 o2 sat on RA, patient placed on o2 NC. He denies fever, chills, N/V/D. Constipation is endorsed. On triage, pain is rated 2/10, nothing is noted to aggravate/alleviate Sx. It is also reported that patient is on a "fluid pill". Home medications and allergies are reviewed. - History of Current Complaint Chief Complaint: EDDysrhythmPalp Time Seen by Provider: 04/20/18 08:00 Hx Obtained From: Patient, Family/Billing Assistant - daughter Onset/Duration: Still Present Timing: Constant Current Severity: Mild - 2/10 on triage Aggrevating Factors: Nothing Alleviating Factors: Nothing Associated Signs & Symptoms: Cough (Productive), Chest Pain Unrelated to Cough - Allergy/Home Medications Allergies/Adverse Reactions: Allergies Allergy/AdvReac Type Severity Reaction Status Date / Time latex Allergy Severe Rash And Verified 04/20/18 08:23 Itching niacin Allergy Severe See Comment Verified 04/20/18 08:23 [email or web address] Allergy Anxiety Verified 04/20/18 08:23 PMH/Surg Hx/FS Hx/Imm Hx Endocrine/Hematology History: Reports: Hx Anticoagulant Therapy, Hx Anemia Denies: Hx Blood Disorders, Hx Blood Transfusions, Hx Bone Marrow Disease, Hx Diabetes, Hx Systemic Lupus Erythematosus, Hx Sickle Cell Disease, Hx Thyroid Disease, Hx Unexplained Bleeding, Other Endocrine/Hematological Disorders Cardiovascular History: Reports: Hx Angina, Hx Angioplasty, Hx Atrial Fibrillation - ON [place], Hx Congestive Heart Failure, Hx Coronary Artery Disease, Hx Hypercholesterolemia, Hx Hypertension, Hx Syncope Denies: Hx Aneurysm, Hx Auto Implanted Cardiovert Defib, Hx Cardiac Arrest, Hx Cardiomegaly, Hx Congenital Heart Disease, Hx Deep Vein Thrombosis, Hx Embolism, Hx Hypotension, Hx Pacemaker/ICD, Hx Peripheral Vascular Disease, Hx Rheumatic Fever, Hx Valvular Heart Disease, Other Cardiovascular Problems/ Disorders Respiratory History: Reports: Other Respiratory Problems/Disorders - SOB Denies: Hx Asthma, Hx Chronic Bronchitis, Hx Chronic Obstructive Pulmonary Disease (COPD), Hx Cystic Fibrosis, Hx Lung Cancer, Hx Pleural Effusion, Hx Pneumonia, Hx Pulmonary Edema, Hx Pulmonary Embolism, Hx Seasonal Allergies, Hx Sleep Apnea GI History: Reports: Hx Gastroesophageal Reflux Disease, Hx Gastrointestinal Bleed, Hx Hiatal Hernia - hx herniated diaphram, Other GI Disorders - hx pancreatitis; Denies: Hx Cirrhosis, Hx Crohn's Disease, Hx Diverticulosis, Hx Gall Bladder Disease, Hx Irritable Bowel, Hx Jaundice, Hx Obstructive Bowel, Hx Ileostomy, Hx Pyloric Stenosis, Hx Ulcer History: Denies: Hx Renal Disease Musculoskeletal History: Reports: Hx Arthritis, Hx Bursitis Denies: Hx Back Problems, Hx Congenital Bone Abnormalities, Hx Fibromyalgia, Hx Gout, Hx Orthopedic Injury, Hx Osteoporosis, Hx Scoliosis, Hx Tendonitis, Other Musculoskeletal History Sensory History: Reports: Hx Cataracts, Hx Contacts or Glasses - reading glasses , Hx Hearing Aid - @ home Denies: Hx Eye Injury, Hx Eye Prosthesis, Hx Glaucoma, Hx Legally Blind, Hx Macular Degeneration, Hx Vision Problem, Hx Deafness, Hx Hearing Problem, Other Sensory Impairments Opthamlomology History: Reports: Hx Cataracts, Hx Contacts or Glasses - reading glasses Denies: Hx Eye Injury, Hx Eye Prosthesis, Hx Glaucoma, Hx Legally Blind, Hx Macular Degeneration, Hx Vision Problem, Other Sensory Impairments Neurological History: Reports: Hx Transient Ischemic Attacks (TIA) - 1986 Denies: Hx Dementia, Hx Developmental Delay, Hx Headaches, Hx Migraine, Hx Nerve Disease, Hx Seizures, Hx Spinal Cord Injury, Other Neuro Impairments/ Disorders - Cancer History Cancer Type, Location and Year: 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 - Surgical History Surgery Procedure, Year, and Place: CARDIAC STENT PLACED 2011, left posterior shoulder melanoma removed Hx Anesthesia Reactions: No - Immunization History Date of Tetanus Vaccine: unknown Infectious Disease History: No Infectious Disease History: Reports: Hx of Known/Suspected MRSA Denies: Hx Clostridium Difficile, Hx Hepatitis, Hx Human Immunodeficiency Virus (HIV), Hx Shingles, Hx Tuberculosis, History Other Infectious Disease, Traveled Outside the [place] in Last 30 Days - Family History Known Family History: Positive: Cardiac Disease - Social History Alcohol Use: Rare Alcohol Amount: 5-6 glasses a week Hx Substance Use: No Substance Use Type: Reports: None Hx Tobacco Use: Yes Smoking Status (MU): Former Smoker Type: Cigarettes Amount Used/How Often: 3 PPD Length of Time of Smoking/Using Tobacco: 55 years Have You Smoked in the Last Year: No Review of Systems Negative: Fever, Chills Positive: Palpitations - FASTER HEART RATE REPORTED , Chest Pain - RIGHT Positive: Shortness Of Breath, Cough - PRODUCTIVE Positive: Other - POSITIVE - CONSTIPATION . Negative: Vomiting, Diarrhea, Nausea All Other Systems Reviewed And Are Negative: Yes Physical Exam - Summary Physical Exam Summary: VITAL SIGNS: Reviewed. GENERAL: Patient is a well-developed and nourished male who is lying comfortable in the stretcher. Patient has some acute respiratory distress but capable of speaking in complete sentences HEAD AND FACE: No signs of trauma. No ecchymosis, hematomas or skull depressions. No sinus tenderness. EYES: PERRLA, EOMI x 2, No injected conjunctiva, no nystagmus. EARS: Hearing grossly intact. Ear canals and tympanic membranes are within normal limits. MOUTH: Oropharynx within normal limits. NECK: Supple, trachea is midline, no adenopathy, no JVD, no carotid bruit, no c- spine tenderness, neck with full ROM. CHEST: Symmetric, no tenderness at palpation LUNGS: Decreased breath sounds in lower left lung. Wheezing noted as well. CVS: Regular rate and rhythm, S1 and S2 present, no murmurs or gallops appreciated. ABDOMEN: Soft, non-tender. No signs of distention. No rebound no guarding, and no masses palpated. Bowel sounds are normal. EXTREMITIES: FROM in all major joints, no edema, no cyanosis or clubbing. NEURO: Alert and oriented x 3. No acute neurological deficits. Speech is normal and follows commands. SKIN: Dry and warm Triage Information Reviewed: Yes Vital Signs On Initial Exam: Initial Vitals Temp Pulse Resp BP Pulse Ox 97.8 F 92 30 139/83 94 04/20/18 07:59 04/20/18 07:59 04/20/18 07:59 04/20/18 07:59 04/20/18 07:59 Vital Signs Reviewed: Yes Diagnostics - Vital Signs Vital Signs Temp Pulse Resp BP Pulse Ox 04/20/18 07:59 97.8 F 92 30 139/83 94 - Laboratory Result Diagrams: 04/20/18 08:16 04/20/18 08:16 Lab Statement: Any lab studies that have been ordered have been reviewed, and results considered in the medical decision making process. - Radiology CXR Radiology Interpretation Completed By: Radiologist Summary of Radiographic Findings: CXR IMPRESSION: #. Chronic elevation of the LEFT hemidiaphragm with associated basilar atelectasis. #. Stigmata of chronic obstructive pulmonary disease. #. Mild interstitial edema and small RIGHT pleural effusion with improvement compared with. the August 07, 2017 exam. THIS REPORT WAS REVIEWED BY ED PHYSICIAN. - EKG 0829 Cardiac Rate: Other Rate - atrial flutter with rate of 84 BPM EKG Rhythm: Atrial Flutter Ectopy: PVCs EKG Comparison: No Significant Change - compared to EKG from 08/07/17 Summary of EKG Findings: EKG showed atrial flutter with rate of 84 BPM, multiple PVCs, no significant changes from prior EKG on 08/07/17 Re-Evaluation - Re-Evaluation First Eval Re-Evaluation Time: 09:22 Change: Improved Comment: Patient's Sx are improved, patient reports no chest pain or SOB at this point. He is still on o2. Second Eval Re-Evaluation Time: 10:26 Change: Improved Comment: Patient is hemodynamically stable alert oriented 3. I discussed all the findings and test results with the patient. Patient was instructed to return to the emergency room immediately if any of the symptoms return or worsens. Plan of care was discussed with the patient and understands and agrees. All questions were answered at patient satisfaction. There were no further complaints or concerns. Lung exam before discharge: CTA B/L. Good air exchange. No wheezing or crackles heard. CVS: S1 and S2 present. No murmurs appreciated. Patient is alert and oriented x 3. Patient is hemodynamically stable. Patient will be discharged home with follow up PCP in the next 2-3 days Course/Dx - Course Assessment/Plan: Patient is a 87 y/o M presenting to ED with complaints of SOB, productive cough, increased heart rate, right-sided chest pain. Patient is on 2 L o2 at home. Patient's daughter, who was present in the room, notes PMHx of PNA in patient. He is a former smoker, quit 18 years ago. Patient denies Hx of emphysema. In room, patient is 94 o2 sat on RA, patient placed on o2 NC. He denies fever, chills, N/V/D. Constipation is endorsed. On triage, pain is rated 2/10, nothing is noted to aggravate/alleviate Sx. It is also reported that patient is on a "fluid pill". Home medications and allergies are reviewed. Chest x-ray impression: chronic elevation of the left hemidiaphragm and with associated basilar atelectasis. Stigmata for chronic obstructive pulmonary disease. Mild interstitial edema and a small right pleural effusions with improvement compared with August 07, 2017. Blood work without any significant abnormality except for glucose 158 and BNP 189. D-dimer less than 200. The patient had a slightly diffuse wheezing therefore the patient was given a DuoNeb and symmetrical and the symptoms resolved. At this point the patient is saturating 98-99% on 2 L of oxygen which is dosage home. The patient is feeling better, since he doesnt have any pneumonia or pulmonary embolism and he does not have any chest pain the patient will be discharged home with follow- up with primary care physician. Patient is hemodynamically stable alert oriented 3. I discussed all the findings and test results with the patient. Patient was instructed to return to the emergency room immediately if any of the symptoms return or worsens. Plan of care was discussed with the patient and understands and agrees. All questions were answered at patient satisfaction. There were no further complaints or concerns. Lung exam before discharge: CTA B /L. Good air exchange. No wheezing or crackles heard. CVS: S1 and S2 present. No murmurs appreciated. Patient is alert and oriented x 3. Patient is hemodynamically stable. Patient will be discharged home with follow up PCP in the next 2-3 days. - Diagnoses Provider Diagnoses: COPD exacerbation Discharge - Sign-Out/Discharge Documenting (check all that apply): Patient Departure - discharge - Discharge Plan Condition: Stable Disposition: HOME Prescriptions: Albuterol HFA INHALER* [Ventolin HFA Inhaler*] 1 puff INH Q4H PRN #1 mdi PRN Reason: Wheezing predniSONE [Prednisone 20 MG TAB] 40 mg PO DAILY #8 tablet Patient Education Materials: COPD (Chronic Obstructive Pulmonary Disease) (ED) Referrals: Shante Reyes MD [Primary Care Provider] - 3 Days Additional Instructions: RETURN TO ED FOR NEW OR WORSENING SYMPTOMS. FOLLOW UP WITH YOUR PRIMARY CARE PHYSICIAN IN 2-3 DAYS. - Billing Disposition and Condition Condition: STABLE Disposition: Home - Attestation Statements Document Initiated by Scribe: Yes Documenting Scribe: JHONNY DE LA TORRE Provider For Whom Scribe is Documenting (Include Credential): SAMMY LOWE MD Scribe Attestation: I, JHONNY DE LA TORRE , scribed for SAMMY LOWE MD on 04/21/18 at 2145. Scribe Documentation Reviewed: Yes Provider Attestation: The documentation as recorded by the [email or web address] accurately reflects the service I personally performed and the decisions made by me, SAMMY LOWE MD Status of Scribe Document: Viewed
[2018-04-20 08:32] LABS: ABS Basophils 0 10^3/ul (0-0.2); ABS Eosinophils 0.1 10^3/ul (0-0.6); ABS Lymphocytes 0.7 10^3/ul (1.0-4.8); ABS Monocytes 0.6 10^3/ul (0-0.8); ABS Neutrophils 4.2 10^3/ul (1.5-7.7); ABS Nucleated RBC 0 10^3/ul; Eosinophil % 1.4 %; Hematocrit 43 % (42-52); Hemoglobin 14.2 g/dl (14.0-18.0); Mean Corpuscular HGB Conc 34 g/dl (31-36); Mean Corpuscular Hemoglobin 32 pg (27-31); Mean Corpuscular Volume 95 fL (80-94); Mean Platelet Volume 10.2 fL (7.4-10.4); Nucleated Red Blood Cells % 0.1; Platelet Count 118 10^3/ul (150-450); Red Cell Distribution Width 14 % (10.5-15); White Blood Count 5.6 10^3/ul (3.5-10.8)
[2018-04-20 09:05] LABS: EGFR Non-African American 90.1 (>60)
[2018-04-20] MEDS ORDERED: methylPREDNISolone 125 MG* 2 ML VIAL IV ONE (09:13)
[2018-04-20] MEDS ORDERED: Albuterol/Ipratropium NEB.SOL* Albuterol 2.5 MG/Ipratropium 0.5 MG 3 ML INH PRN (09:13)
[2018-04-20 10:21] VITALS: BP 127/58
== END 2018-04-20 10:53 | disposition home or self-care (01) ==
LOC: ED 07:57
DX: J44.1 Chronic obstructive pulmonary disease with (acute) exacerbation (principal); I48.91 Unspecified atrial fibrillation; I50.9 Heart failure, unspecified; I25.10 Atherosclerotic heart disease of native coronary artery without angina pectoris; E78.00 Pure hypercholesterolemia, unspecified; I10 Essential (primary) hypertension; Z85.820 Personal history of malignant melanoma of skin; Z87.891 Personal history of nicotine dependence
CPT/HCPCS: 36415; 71046; 80053; 82550; 82553; 83605; 83880; 84145; 84484; 85025; 85379; 85730; 86140; 87040; 93005; 96374; 99282; A9270-GY; J2930

== ENCOUNTER 2018-12-14 17:19 | Emergency (ER) | payer MEDICARE ==
[2018-12-14] MEDS ORDERED: Tranexamic Acid 1,000 MG/10 ML SDV TOPICAL ONE (18:23)
--- NOTE | 2018-12-14 19:14 | ED ---
Laceration/Wound HPI - HPI Summary HPI Summary: Patient currently on Plavix complains of persistent bleeding after visit to the dermatology where biopsies were taken on right ear dorsal surface of back of right hand and medial upper left arm. Denies any other pain injury or symptoms. Patient taking Plavix for history of cardiac stents. - History of Current Complaint Stated Complaint: EAR WONT STOP BLEEDING PER DAUGHTER Time Seen by Provider: 12/14/18 17:44 Hx Obtained From: Patient, Family/Marine Service Manager Onset/Duration: Gradual Onset Current Severity: None Pain Intensity: 0 Pain Scale Used: 0-10 Numeric Related Hx: Anticoagulat Use - Additional Pertinent History Primary Care Physician: BENNIE - Allergy/Home Medications Allergies/Adverse Reactions: Allergies Allergy/AdvReac Type Severity Reaction Status Date / Time latex Allergy Severe Rash And Verified 12/14/18 18:00 Itching niacin Allergy Severe See Comment Verified 12/14/18 18:00 [email or web address] Allergy Anxiety Verified 12/14/18 18:00 Home Medications: Home Medications Metoprolol Succinate XL TAB* [Toprol XL TAB*] 50 mg PO BID 12/14/18 [History Confirmed 12/14/18] PMH/Surg Hx/FS Hx/Imm Hx Endocrine/Hematology History: Reports: Hx Anticoagulant Therapy, Hx Anemia Denies: Hx Blood Disorders, Hx Blood Transfusions, Hx Bone Marrow Disease, Hx Diabetes, Hx Systemic Lupus Erythematosus, Hx Sickle Cell Disease, Hx Thyroid Disease, Hx Unexplained Bleeding, Other Endocrine/Hematological Disorders Cardiovascular History: Reports: Hx Angina, Hx Angioplasty, Hx Atrial Fibrillation - ON [place], Hx Congestive Heart Failure, Hx Coronary Artery Disease, Hx Hypercholesterolemia, Hx Hypertension, Hx Syncope Denies: Hx Aneurysm, Hx Auto Implanted Cardiovert Defib, Hx Cardiac Arrest, Hx Cardiomegaly, Hx Congenital Heart Disease, Hx Deep Vein Thrombosis, Hx Embolism, Hx Hypotension, Hx Pacemaker/ICD, Hx Peripheral Vascular Disease, Hx Rheumatic Fever, Hx Valvular Heart Disease, Other Cardiovascular Problems/ Disorders Respiratory History: Reports: Other Respiratory Problems/Disorders - SOB Denies: Hx Asthma, Hx Chronic Bronchitis, Hx Chronic Obstructive Pulmonary Disease (COPD), Hx Cystic Fibrosis, Hx Lung Cancer, Hx Pleural Effusion, Hx Pneumonia, Hx Pulmonary Edema, Hx Pulmonary Embolism, Hx Seasonal Allergies, Hx Sleep Apnea GI History: Reports: Hx Gastroesophageal Reflux Disease, Hx Gastrointestinal Bleed, Hx Hiatal Hernia - hx herniated diaphram, Other GI Disorders - hx pancreatitis; Denies: Hx Cirrhosis, Hx Crohn's Disease, Hx Diverticulosis, Hx Gall Bladder Disease, Hx Irritable Bowel, Hx Jaundice, Hx Obstructive Bowel, Hx Ileostomy, Hx Pyloric Stenosis, Hx Ulcer History: Denies: Hx Renal Disease Musculoskeletal History: Reports: Hx Arthritis, Hx Bursitis Denies: Hx Back Problems, Hx Congenital Bone Abnormalities, Hx Fibromyalgia, Hx Gout, Hx Orthopedic Injury, Hx Osteoporosis, Hx Scoliosis, Hx Tendonitis, Other Musculoskeletal History Sensory History: Reports: Hx Cataracts, Hx Contacts or Glasses - reading glasses , Hx Hearing Aid - @ home Denies: Hx Eye Injury, Hx Eye Prosthesis, Hx Glaucoma, Hx Legally Blind, Hx Macular Degeneration, Hx Vision Problem, Hx Deafness, Hx Hearing Problem, Other Sensory Impairments Opthamlomology History: Reports: Hx Cataracts, Hx Contacts or Glasses - reading glasses Denies: Hx Eye Injury, Hx Eye Prosthesis, Hx Glaucoma, Hx Legally Blind, Hx Macular Degeneration, Hx Vision Problem, Other Sensory Impairments Neurological History: Reports: Hx Transient Ischemic Attacks (TIA) - 1986 Denies: Hx Dementia, Hx Developmental Delay, Hx Headaches, Hx Migraine, Hx Nerve Disease, Hx Seizures, Hx Spinal Cord Injury, Other Neuro Impairments/ Disorders - Cancer History Cancer Type, Location and Year: 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 - Surgical History Surgery Procedure, Year, and Place: CARDIAC STENT PLACED 2011, left posterior shoulder melanoma removed Hx Anesthesia Reactions: No - Immunization History Date of Tetanus Vaccine: unknown Infectious Disease History: No Infectious Disease History: Reports: Hx of Known/Suspected MRSA Denies: Hx Clostridium Difficile, Hx Hepatitis, Hx Human Immunodeficiency Virus (HIV), Hx Shingles, Hx Tuberculosis, History Other Infectious Disease, Traveled Outside the [place] in Last 30 Days - Family History Known Family History: Positive: Cardiac Disease - Social History Alcohol Use: Weekly Alcohol Amount: 5-6 glasses a week Hx Substance Use: No Substance Use Type: Reports: None Hx Tobacco Use: Yes Smoking Status (MU): Former Smoker Type: Cigarettes Amount Used/How Often: 3 PPD Length of Time of Smoking/Using Tobacco: 55 years Have You Smoked in the Last Year: No Review of Systems Constitutional: Negative Eyes: Negative ENT: Negative Cardiovascular: Negative Respiratory: Negative Gastrointestinal: Negative Genitourinary: Negative Musculoskeletal: Negative Skin: Other Neurological: Negative Psychological: Normal All Other Systems Reviewed And Are Negative: Yes Physical Exam - Summary Physical Exam Summary: No indication for suturing at biopsy sites of right ear, dorsal surface right hand, left upper medial arm. Bleeding controlled all 3 sites with use of Surgicel and Tegaderm. Triage Information Reviewed: Yes Vital Signs On Initial Exam: Initial Vitals Temp Pulse Resp BP Pulse Ox 99.1 F 84 16 115/61 94 12/14/18 17:26 12/14/18 17:26 12/14/18 17:26 12/14/18 17:26 12/14/18 17:26 Vital Signs Reviewed: Yes Appearance: Positive: Well-Appearing Skin: Positive: Warm Head/Face: Positive: Normal Head/Face Inspection Eyes: Positive: Normal Neck: Positive: Supple Respiratory/Lung Sounds: Positive: Clear to Auscultation Cardiovascular: Positive: Normal Abdomen Description: Positive: Nontender Musculoskeletal: Positive: Normal Neurological: Positive: Normal Psychiatric: Positive: Normal AVPU Assessment: Alert - [place] Coma Scale Best Eye Response: 4 - Spontaneous Best Motor Response: 6 - Obeys Commands Best Verbal Response: 5 - Oriented Coma Scale Total: 15 Diagnostics - Vital Signs Vital Signs Temp Pulse Resp BP Pulse Ox 12/14/18 17:26 99.1 F 84 16 115/61 94 - Laboratory Lab Statement: Any lab studies that have been ordered have been reviewed, and results considered in the medical decision making process. Laceration Repair Course/Dx - Course Course Of Treatment: Patient currently on Plavix complains of persistent bleeding after visit to the dermatology where biopsies were taken on right ear dorsal surface of back of right hand and medial upper left arm. Denies any other pain injury or symptoms. Patient taking Plavix for history of cardiac stents. No indication for suturing at biopsy sites of right ear, dorsal surface right hand, left upper medial arm. Bleeding controlled all 3 sites with use of Surgicel and Tegaderm. Patient advised to return to ED if bleeding returns. - Clinical Impression Provider Diagnoses: Bleeding Discharge - Sign-Out/Discharge Documenting (check all that apply): Patient Departure Patient Received Moderate/Deep Sedation with Procedure: No - Discharge Plan Condition: Stable Disposition: HOME Patient Education Materials: Postoperative Bleeding (ED) Referrals: Shante Reyes MD [Primary Care Provider] - Additional Instructions: Remove dressing Wednesday morning. From then on apply antibiotic ointment. Return to the ED for any new or worsening symptoms. - Billing Disposition and Condition Condition: STABLE Disposition: Home
[2018-12-14 19:33] VITALS: BP 138/60
== END 2018-12-14 19:32 | disposition home or self-care (01) ==
LOC: ED 17:19
DX: L76.21 Postprocedural hemorrhage of skin and subcutaneous tissue following a dermatologic procedure (principal); I11.0 Hypertensive heart disease with heart failure; I50.9 Heart failure, unspecified; Z79.01 Long term (current) use of anticoagulants; Z95.5 Presence of coronary angioplasty implant and graft; Z86.73 Personal history of transient ischemic attack (TIA), and cerebral infarction without residual deficits; Z88.8 Allergy status to other drugs, medicaments and biological substances; Z91.040 Latex allergy status; Z87.891 Personal history of nicotine dependence
CPT/HCPCS: 99281

== ENCOUNTER 2019-01-18 08:23 | Emergency (ER) | payer MEDICARE ==
--- NOTE | 2019-01-18 08:53 | ED ---
Complex/Multi-Sys Presentation - HPI Summary HPI Summary: Patient is an 88-year-old male who presents emergency department for weakness since yesterday. Patient lives at home with his daughter. Daughter states that patient has progressively been getting worse with his memory over the last several months. She states that he typically ambulates with a walker and last night had a shuffling gait which was new for him. Today patient almost fell complaining that he felt weak. No associate symptoms of recent illness, fever, cough, chest pain, shortness of breath, abdominal pain, vomiting, diarrhea, urinary symptoms, numbness, tingling or weakness. The daughter notes no change in mental status. Symptoms are moderate in severity. No current modifying factors. - History Of Current Complaint Chief Complaint: EDNeurologicalDeficit Time Seen by Provider: 01/18/19 08:38 Hx Obtained From: Patient, Family/Gate Watch - Allergies/Home Medications Allergies/Adverse Reactions: Allergies Allergy/AdvReac Type Severity Reaction Status Date / Time latex Allergy Severe Rash And Verified 01/18/19 08:39 Itching niacin Allergy Severe See Comment Verified 01/18/19 08:39 [email or web address] Allergy Anxiety Verified 01/18/19 08:39 PMH/Surg Hx/FS Hx/Imm Hx Previously Healthy: Yes Endocrine/Hematology History: Reports: Hx Anticoagulant Therapy, Hx Anemia Denies: Hx Blood Disorders, Hx Blood Transfusions, Hx Bone Marrow Disease, Hx Diabetes, Hx Systemic Lupus Erythematosus, Hx Sickle Cell Disease, Hx Thyroid Disease, Hx Unexplained Bleeding, Other Endocrine/Hematological Disorders Cardiovascular History: Reports: Hx Angina, Hx Angioplasty, Hx Atrial Fibrillation - ON [place], Hx Congestive Heart Failure, Hx Coronary Artery Disease, Hx Hypercholesterolemia, Hx Hypertension, Hx Syncope Denies: Hx Aneurysm, Hx Auto Implanted Cardiovert Defib, Hx Cardiac Arrest, Hx Cardiomegaly, Hx Congenital Heart Disease, Hx Deep Vein Thrombosis, Hx Embolism, Hx Hypotension, Hx Pacemaker/ICD, Hx Peripheral Vascular Disease, Hx Rheumatic Fever, Hx Valvular Heart Disease, Other Cardiovascular Problems/ Disorders Respiratory History: Reports: Other Respiratory Problems/Disorders - SOB Denies: Hx Asthma, Hx Chronic Bronchitis, Hx Chronic Obstructive Pulmonary Disease (COPD), Hx Cystic Fibrosis, Hx Lung Cancer, Hx Pleural Effusion, Hx Pneumonia, Hx Pulmonary Edema, Hx Pulmonary Embolism, Hx Seasonal Allergies, Hx Sleep Apnea GI History: Reports: Hx Gastroesophageal Reflux Disease, Hx Gastrointestinal Bleed, Hx Hiatal Hernia - hx herniated diaphram, Other GI Disorders - hx pancreatitis; Denies: Hx Cirrhosis, Hx Crohn's Disease, Hx Diverticulosis, Hx Gall Bladder Disease, Hx Irritable Bowel, Hx Jaundice, Hx Obstructive Bowel, Hx Ileostomy, Hx Pyloric Stenosis, Hx Ulcer History: Denies: Hx Renal Disease Musculoskeletal History: Reports: Hx Arthritis, Hx Bursitis Denies: Hx Back Problems, Hx Congenital Bone Abnormalities, Hx Fibromyalgia, Hx Gout, Hx Orthopedic Injury, Hx Osteoporosis, Hx Scoliosis, Hx Tendonitis, Other Musculoskeletal History Sensory History: Reports: Hx Cataracts, Hx Contacts or Glasses - reading glasses , Hx Hearing Aid - @ home Denies: Hx Eye Injury, Hx Eye Prosthesis, Hx Glaucoma, Hx Legally Blind, Hx Macular Degeneration, Hx Vision Problem, Hx Deafness, Hx Hearing Problem, Other Sensory Impairments Opthamlomology History: Reports: Hx Cataracts, Hx Contacts or Glasses - reading glasses Denies: Hx Eye Injury, Hx Eye Prosthesis, Hx Glaucoma, Hx Legally Blind, Hx Macular Degeneration, Hx Vision Problem, Other Sensory Impairments Neurological History: Reports: Hx Transient Ischemic Attacks (TIA) - 1986 Denies: Hx Dementia, Hx Developmental Delay, Hx Headaches, Hx Migraine, Hx Nerve Disease, Hx Seizures, Hx Spinal Cord Injury, Other Neuro Impairments/ Disorders - Cancer History Cancer Type, Location and Year: 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 - Surgical History Surgery Procedure, Year, and Place: CARDIAC STENT PLACED 2011, left posterior shoulder melanoma removed Hx Anesthesia Reactions: No - Immunization History Date of Tetanus Vaccine: unknown Infectious Disease History: No Infectious Disease History: Reports: Hx of Known/Suspected MRSA Denies: Hx Clostridium Difficile, Hx Hepatitis, Hx Human Immunodeficiency Virus (HIV), Hx Shingles, Hx Tuberculosis, History Other Infectious Disease, Traveled Outside the [place] in Last 30 Days - Family History Known Family History: Positive: Cardiac Disease - Social History Occupation: Retired Lives: With Family Alcohol Use: None Alcohol Amount: denies Hx Substance Use: No Substance Use Type: Reports: None Hx Tobacco Use: Yes Smoking Status (MU): Former Smoker Type: Cigarettes Amount Used/How Often: 3 PPD Length of Time of Smoking/Using Tobacco: 55 years Have You Smoked in the Last Year: No Review of Systems Constitutional: Negative Negative: Fever, Chills Eyes: Negative ENT: Negative Cardiovascular: Negative Negative: Palpitations, Chest Pain Respiratory: Negative Negative: Shortness Of Breath, Cough Gastrointestinal: Negative Negative: Abdominal Pain, Vomiting, Diarrhea Genitourinary: Negative Positive: Other - Leg weakness Skin: Negative Positive: Weakness. Negative: Headache, Paresthesia, Numbness, Syncope, Slurred Speech All Other Systems Reviewed And Are Negative: Yes Physical Exam Triage Information Reviewed: Yes Vital Signs On Initial Exam: Initial Vitals Temp Pulse Resp BP Pulse Ox 98.1 F 65 22 114/61 92 01/18/19 08:25 01/18/19 08:25 01/18/19 08:25 01/18/19 08:25 01/18/19 08:25 Vital Signs Reviewed: Yes Appearance: Positive: Well-Appearing - Pt. sitting up in bed in NAD. Pleasant. Oriented to place and self but not time. Daughter present. Skin: Positive: Warm, Dry Head/Face: Positive: Normal Head/Face Inspection Eyes: Positive: Normal, EOMI Neck: Positive: Supple Respiratory/Lung Sounds: Positive: Clear to Auscultation, Breath Sounds Present Cardiovascular: Positive: Normal, RRR Abdomen Description: Positive: Nontender, Soft Musculoskeletal: Positive: Normal, Strength/ROM Intact, Other - 5/5 strength in bilateral UEs and LEs. Neurological: Positive: Normal, CN Intact II-III, Facial Symmetry, Speech Normal. Negative: Alert, Oriented to Person Place, Time, Facial Droop, Slurred Speech, Pronator Drift Present Diagnostics - Vital Signs Vital Signs Temp Pulse Resp BP Pulse Ox 01/18/19 08:25 98.1 F 65 22 114/61 92 - Laboratory Result Diagrams: 01/18/19 09:44 01/18/19 09:44 Lab Statement: Any lab studies that have been ordered have been reviewed, and results considered in the medical decision making process. Complex Multi-Symp Course/Dx Course Of Treatment: Patient presenting with complaint of generalized weakness. He is afebrile with stable vital signs. Patient has no neurological deficits on exam or weakness. He has full strength in upper and lower extremities. In contrary to triage note patient does not have a facial droop and has facial symmetry on exam. CT scan of brain is negative for acute findings, reading per radiology. Chest x-ray negative for acute findings, reading per radiology. ECG done at 922 shows a sinus rhythm of 64bpm, normal axis, no ST elevation or depression. Blood work is unremarkable other than mildly low sodium of 132, chloride of 100 and troponin of 0.042. Patient has a chronically elevated troponin. Reexamination patient resting comfortably. Results were discussed. Patient was ablated in the hallway with a walker without any difficult and at his baseline per daughter. daughter notes that she has been cutting back on patient's sodium because he has CHF. Patient's weakness may be secondary to the hyponatremia. Advised her to slightly increase fluid and sodium intake. To closely follow-up with PCP in 2-3 days for recheck and will return to the ER symptoms change or worsen. Patient and daughter understand and agree with plan. - Diagnoses Differential Diagnoses/HQI/PQRI: CVA, Metabolic Abnormality, Urinary Tract Infection Provider Diagnoses: Hyponatremia, Weakness Discharge ED - Sign-Out/Discharge Documenting (check all that apply): Patient Departure Patient Received Moderate/Deep Sedation with Procedure: No - Discharge Plan Condition: Improved Disposition: HOME Patient Education Materials: Hyponatremia (ED), Weakness (ED) Referrals: Shante Reyes MD [Primary Care Provider] - Additional Instructions: Schedule a follow up appointment with PCP in 2-3 days for recheck Slightly increase fluids and salt intake Return to ER if symptoms change or worsen - Billing Disposition and Condition Condition: IMPROVED Disposition: Home
[2019-01-18 09:54] LABS: Hematocrit 40 % (42-52); Hemoglobin 13.7 g/dL (14.0-18.0); Mean Corpuscular HGB Conc 34 g/dL (31-36); Mean Corpuscular Hemoglobin 32 pg (27-31); Mean Corpuscular Volume 94 fL (80-94); Mean Platelet Volume 10.1 fL (7.4-10.4); Platelet Count 113 10^3/uL (150-450); Red Blood Count 4.28 10^6 /uL (4.18-5.48); Red Cell Distribution Width 15 % (10-15); White Blood Count 8.1 10^3/uL (3.5-10.8)
[2019-01-18 10:04] LABS: Activated Partial Thrombo Time 33.5 seconds (26.0-38.0); INR 1.16 (0.82-1.09)
[2019-01-18 10:11] LABS: ALT 18 U/L (7-52); AST 24 U/L (13-39); Albumin 4.2 g/dL (3.2-5.2); Albumin/Globulin Ratio 1.7 (1-3); Alkaline Phosphatase 49 U/L (34-104); Anion Gap 5 mmol/L (2-11); BUN/Creatinine Ratio 16.7 (8-20); Blood Urea Nitrogen 11 mg/dL (6-24); CO2 Carbon Dioxide 27 mmol/L (22-32); Calcium 8.9 mg/dL (8.6-10.3); Chloride 100 mmol/L (101-111); EGFR African American 137.8 (>60); EGFR Non-African American 113.9 (>60); Globulin 2.5 g/dL (2-4); Glucose 100 mg/dL (70-100); Potassium 4.4 mmol/L (3.5-5.0); Sodium 132 mmol/L (135-145); Total Protein 6.7 g/dL (6.4-8.9)
[2019-01-18 10:15] LABS: Troponin I 0.04 ng/mL (<0.04)
[2019-01-18 10:29] LABS: ABS Basophils 0.1 10^3/ul (0-0.2); ABS Eosinophils 0.1 10^3/ul (0-0.6); ABS Lymphocytes 0.8 10^3/ul (1.0-4.8); ABS Monocytes 1.6 10^3/ul (0-0.8); ABS Neutrophils 5.5 10^3/ul (1.5-7.7); Eosinophil % 1.5 %; Lymphocyte % 9.9 %
[2019-01-18 11:37] LABS: Urine Appearance Cloudy; Urine Bacteria Absent (Absent); Urine Bilirubin Negative (Negative); Urine Blood Negative (Negative); Urine Color Amber; Urine Glucose Negative (Negative); Urine Granular Casts Present (Absent); Urine Ketones Negative (Negative); Urine Nitrite Negative (Negative); Urine Protein 1+(30 mg/dL) (Negative); Urine Red Blood Cell Trace(0-2/hpf) (Absent); Urine Specific Gravity 1.027 (1.010-1.030); Urine Urobilinogen Negative (Negative); Urine White Blood Cell Absent (Absent)
[2019-01-18 11:49] LABS: Troponin I 0.04 ng/mL (<0.04)
[2019-01-18 12:40] VITALS: BP 140/73
== END 2019-01-18 14:15 | disposition home or self-care (01) ==
LOC: ED 08:23
DX: E87.1 Hypo-osmolality and hyponatremia (principal); R53.1 Weakness; J90 Pleural effusion, not elsewhere classified; D64.9 Anemia, unspecified; I48.91 Unspecified atrial fibrillation; I11.0 Hypertensive heart disease with heart failure; I50.9 Heart failure, unspecified; I25.10 Atherosclerotic heart disease of native coronary artery without angina pectoris; E78.00 Pure hypercholesterolemia, unspecified; K21.9 Gastro-esophageal reflux disease without esophagitis; Z86.73 Personal history of transient ischemic attack (TIA), and cerebral infarction without residual deficits; Z95.5 Presence of coronary angioplasty implant and graft; Z87.891 Personal history of nicotine dependence; Z79.01 Long term (current) use of anticoagulants; Z79.82 Long term (current) use of aspirin; Z79.899 Other long term (current) drug therapy; Z88.8 Allergy status to other drugs, medicaments and biological substances; Z91.040 Latex allergy status
CPT/HCPCS: 36415; 70450; 71045; 80053; 81003; 81015; 83605; 84484; 85025; 85610; 85730; 93005; 99284

== ENCOUNTER 2019-02-07 05:25 | Emergency (ER) | payer MEDICARE ==
[2019-02-07] MEDS ORDERED: Cocaine 4% TOPICAL* 4 ML TOP.SOLN RIGHT NARE ONE (06:04)
--- NOTE | 2019-02-07 06:11 | ED ---
Throat Pain/Nasal Congestion - HPI Summary HPI Summary: The patient is an 88 y/o M presenting to [facility] accompanied by daughter with a chief complaint of spontaneous epistaxis from the right nare this morning at 0440. He reports that he had been sleeping and woke up with the nosebleed, which has produced significant blood loss until being controlled. He additionally c/o recent rhinorrhea without any recent sickness. He denies any CP , abd pain, nausea, vomiting, dizziness, or headache. He doesnt typically suffer from nosebleeds. Currently, his symptoms are rated 0/10 in severity. PMHx : anemia, angina, anticoagulants for afib, CHF, CAD, HLD, HTN, syncope, GERD, GI bleed, pancreatitis, TIA, cardiac stents, MRSA. Former smoker, no EtOH, no substance use. Medications reviewed. Allergies noted. - History of Current Complaint Chief Complaint: EDEpistaxis Time Seen by Provider: 02/07/19 06:02 Hx Obtained From: Patient, Family/Resistance Brazer - daughter Onset/Duration: Sudden Onset, Still Present Severity: Moderate Associated Signs And Symptoms: Positive: Nasal Discharge - epistaxis, rhinorrhea Related History: Other (Noted In Comments) - anticoagulant use - Allergies/Home Medications Allergies/Adverse Reactions: Allergies Allergy/AdvReac Type Severity Reaction Status Date / Time latex Allergy Severe Rash And Verified 02/08/19 07:14 Itching niacin Allergy Severe See Comment Verified 02/08/19 07:14 [email or web address] Allergy Anxiety Verified 02/08/19 07:14 PMH/Surg Hx/FS Hx/Imm Hx Endocrine/Hematology History: Reports: Hx Anticoagulant Therapy, Hx Anemia Denies: Hx Blood Disorders, Hx Blood Transfusions, Hx Bone Marrow Disease, Hx Diabetes, Hx Systemic Lupus Erythematosus, Hx Sickle Cell Disease, Hx Thyroid Disease, Hx Unexplained Bleeding, Other Endocrine/Hematological Disorders Cardiovascular History: Reports: Hx Angina, Hx Angioplasty, Hx Atrial Fibrillation - ON [place], Hx Congestive Heart Failure, Hx Coronary Artery Disease, Hx Hypercholesterolemia, Hx Hypertension, Hx Syncope Denies: Hx Aneurysm, Hx Auto Implanted Cardiovert Defib, Hx Cardiac Arrest, Hx Cardiomegaly, Hx Congenital Heart Disease, Hx Deep Vein Thrombosis, Hx Embolism, Hx Hypotension, Hx Pacemaker/ICD, Hx Peripheral Vascular Disease, Hx Rheumatic Fever, Hx Valvular Heart Disease, Other Cardiovascular Problems/ Disorders Respiratory History: Reports: Other Respiratory Problems/Disorders - SOB Denies: Hx Asthma, Hx Chronic Bronchitis, Hx Chronic Obstructive Pulmonary Disease (COPD), Hx Cystic Fibrosis, Hx Lung Cancer, Hx Pleural Effusion, Hx Pneumonia, Hx Pulmonary Edema, Hx Pulmonary Embolism, Hx Seasonal Allergies, Hx Sleep Apnea GI History: Reports: Hx Gastroesophageal Reflux Disease, Hx Gastrointestinal Bleed, Hx Hiatal Hernia - hx herniated diaphram, Other GI Disorders - hx pancreatitis; Denies: Hx Cirrhosis, Hx Crohn's Disease, Hx Diverticulosis, Hx Gall Bladder Disease, Hx Irritable Bowel, Hx Jaundice, Hx Obstructive Bowel, Hx Ileostomy, Hx Pyloric Stenosis, Hx Ulcer History: Denies: Hx Renal Disease Musculoskeletal History: Reports: Hx Arthritis, Hx Bursitis Denies: Hx Back Problems, Hx Congenital Bone Abnormalities, Hx Fibromyalgia, Hx Gout, Hx Orthopedic Injury, Hx Osteoporosis, Hx Scoliosis, Hx Tendonitis, Other Musculoskeletal History Sensory History: Reports: Hx Cataracts, Hx Contacts or Glasses - reading glasses , Hx Hearing Aid - @ home Denies: Hx Eye Injury, Hx Eye Prosthesis, Hx Glaucoma, Hx Legally Blind, Hx Macular Degeneration, Hx Vision Problem, Hx Deafness, Hx Hearing Problem, Other Sensory Impairments Opthamlomology History: Reports: Hx Cataracts, Hx Contacts or Glasses - reading glasses Denies: Hx Eye Injury, Hx Eye Prosthesis, Hx Glaucoma, Hx Legally Blind, Hx Macular Degeneration, Hx Vision Problem, Other Sensory Impairments Neurological History: Reports: Hx Transient Ischemic Attacks (TIA) - 1986 Denies: Hx Dementia, Hx Developmental Delay, Hx Headaches, Hx Migraine, Hx Nerve Disease, Hx Seizures, Hx Spinal Cord Injury, Other Neuro Impairments/ Disorders - Cancer History Cancer Type, Location and Year: 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 - Surgical History Surgical History: Yes Surgery Procedure, Year, and Place: CARDIAC STENT PLACED 2011, left posterior shoulder melanoma removed Hx Anesthesia Reactions: No - Immunization History Date of Tetanus Vaccine: unknown Infectious Disease History: No Infectious Disease History: Reports: Hx of Known/Suspected MRSA Denies: Hx Clostridium Difficile, Hx Hepatitis, Hx Human Immunodeficiency Virus (HIV), Hx Shingles, Hx Tuberculosis, History Other Infectious Disease, Traveled Outside the [place] in Last 30 Days - Family History Known Family History: Positive: Cardiac Disease - Social History Alcohol Use: None Alcohol Amount: denies Hx Substance Use: No Substance Use Type: Reports: None Hx Tobacco Use: Yes Smoking Status (MU): Former Smoker Type: Cigarettes Amount Used/How Often: 3 PPD Length of Time of Smoking/Using Tobacco: 55 years Have You Smoked in the Last Year: No Review of Systems Positive: Epistaxis - right nostril, Nasal Discharge Negative: Chest Pain Negative: Abdominal Pain, Vomiting, Nausea Neurological: Other - Negative: dizziness Negative: Headache All Other Systems Reviewed And Are Negative: Yes Physical Exam - Summary Physical Exam Summary: Appearance: Well-appearing, Well-nourished, lying in bed comfortable Skin: Warm, dry, no obvious rash Eyes: sclera anicteric, no conjunctival pallor ENT: Blood in the right nare, mucous membranes moist Neck: deferred Respiratory: No signs of respiratory distress Cardiovascular: Appears well perfused, pulses are nml Abdomen: deferred Musculoskeletal: Moving all 4 extremities without obvious discomfort Neurological: Awake and alert, mentation is normal, speech is fluent and appropriate Psychiatric: affect is normal, does not appear anxious or depressed Triage Information Reviewed: Yes Vital Signs On Initial Exam: Initial Vitals Temp Pulse Resp BP Pulse Ox 97.9 F 88 22 173/95 95 02/07/19 05:29 02/07/19 05:29 02/07/19 05:29 02/07/19 05:29 02/07/19 05:29 Vital Signs Reviewed: Yes Procedures - Procedure Summary Procedure Summary: Rhinorocket Procedure: Gauze covered in cocaine 4% 1ml applied to patient's nose for 15 minutes, as topical treatment in the right nostril. This revealed a small punctuate of bleeding quite anteriorly. I placed a 4.5 cm rhinorocket as this bleeding was quite vigorous despite the 15 minutes of packing with cocaine. Will observe to see if that controls the bleeding. - Sedation Patient Received Moderate/Deep Sedation with Procedure: No Diagnostics - Vital Signs Vital Signs Temp Pulse Resp BP Pulse Ox 02/07/19 05:29 97.9 F 88 22 173/95 95 - Laboratory Lab Statement: Any lab studies that have been ordered have been reviewed, and results considered in the medical decision making process. Re-Evaluation - Re-Evaluation First Eval Re-Evaluation Time: 06:55 Change: Improved Comment: After rhinorocket procedure, pt's bleeding is controlled. Discussed d/ c. EENT Course/Dx - Course Course Of Treatment: Pt is an 88 y/o M with cc of spontaneous epistaxis in the right nare occurring at 0440 this morning that has since been more controlled but is still present without any accompanying symptoms including CP, abd pain, nausea, vomiting, dizziness, or headache. Anticoagulant use for afib. Upon physical exam, the pt exhibits blood in the right nare. Epistaxis procedure performed with rhinorocket and cocaine 4% topical (see procedure note). Pts epistaxis controlled in the ED, and he is safe for discharge at this point. We discussed course of treatment, and the pt and his daughter understand and agree with plan for discharge. Dx of epistaxis. - Diagnoses Provider Diagnoses: Epistaxis Discharge ED - Sign-Out/Discharge Documenting (check all that apply): Patient Departure - Patient will be discharged home. Patient Received Moderate/Deep Sedation with Procedure: No - Discharge Plan Condition: Good Disposition: HOME Patient Education Materials: Nosebleed (ED) Referrals: Herberth Jean Baptiste MD [Medical Doctor] - 3 Days Additional Instructions: You will need to make an appt with the ENT doctor for towards the end of the week, call today and explain the situation and they will tell you when to come in. You should continue the plavix since you recently had a heart procedure. - Billing Disposition and Condition Condition: GOOD Disposition: Home - Attestation Statements Document Initiated by Manjit: Yes Documenting Scribe: Celena Flores Provider For Whom Manjit is Documenting (Include Credential): Dr. Marlon Barth MD [facility] Attestation: Celena Jones scribed for Dr. Marlon Barth MD on 02/15/19 at 1210. Scribe Documentation Reviewed: Yes Provider Attestation: The documentation as recorded by the Celena warren accurately reflects the service I personally performed and the decisions made by me, Dr. Marlon Barth MD Status of Manjit Document: Viewed
[2019-02-07 07:28] VITALS: BP 156/87
== END 2019-02-07 07:27 | disposition home or self-care (01) ==
LOC: ED 05:25
DX: R04.0 Epistaxis (principal); I25.10 Atherosclerotic heart disease of native coronary artery without angina pectoris; D64.9 Anemia, unspecified; E78.5 Hyperlipidemia, unspecified; K21.9 Gastro-esophageal reflux disease without esophagitis; Z87.891 Personal history of nicotine dependence; Z86.14 Personal history of Methicillin resistant Staphylococcus aureus infection; Z79.01 Long term (current) use of anticoagulants; Z86.73 Personal history of transient ischemic attack (TIA), and cerebral infarction without residual deficits; R55 Syncope and collapse; I48.91 Unspecified atrial fibrillation; I11.0 Hypertensive heart disease with heart failure; I50.9 Heart failure, unspecified; Z95.5 Presence of coronary angioplasty implant and graft; Z79.82 Long term (current) use of aspirin; Z79.899 Other long term (current) drug therapy; Z88.8 Allergy status to other drugs, medicaments and biological substances; Z91.040 Latex allergy status
CPT/HCPCS: 99282; 99283; A9270-GY

== ENCOUNTER 2019-02-07 08:14 | Emergency (ER) | payer MEDICARE ==
--- NOTE | 2019-02-07 08:58 | ED ---
Throat Pain/Nasal Congestion - HPI Summary HPI Summary: Pt is an 88 y/o M presenting to the ED for epistaxis. He was seen in the ED earlier today for the same complaint that began at 04:30 arriving via EMS and was sent home with medication. Pt's nose began bleeding again after arriving home. Pt denies nasal pain and fever. His daughter states that he had no epistaxis episodes in the past, but did have a runny nose for the past week. Pt takes Plavix, Aspirin, and metoprolol. He has a PMHx of 9 stent placements. Denies feeling anything in the back of the throat. - History of Current Complaint Chief Complaint: EDEpistaxis Time Seen by Provider: 02/07/19 08:43 Hx Obtained From: Patient, Family/Site Acquisition Specialist Onset/Duration: Sudden Onset, Lasting Hours, Still Present Severity: Moderate Associated Signs And Symptoms: Positive: Nasal Discharge - For last week Cough: None - Allergies/Home Medications Allergies/Adverse Reactions: Allergies Allergy/AdvReac Type Severity Reaction Status Date / Time latex Allergy Severe Rash And Verified 02/08/19 07:14 Itching niacin Allergy Severe See Comment Verified 02/08/19 07:14 [email or web address] Allergy Anxiety Verified 02/08/19 07:14 PMH/Surg Hx/FS Hx/Imm Hx Previously Healthy: Yes Endocrine/Hematology History: Reports: Hx Anticoagulant Therapy, Hx Anemia Denies: Hx Blood Disorders, Hx Blood Transfusions, Hx Bone Marrow Disease, Hx Diabetes, Hx Systemic Lupus Erythematosus, Hx Sickle Cell Disease, Hx Thyroid Disease, Hx Unexplained Bleeding, Other Endocrine/Hematological Disorders Cardiovascular History: Reports: Hx Angina, Hx Angioplasty, Hx Atrial Fibrillation - ON WARF[place]IN, Hx Congestive Heart Failure, Hx Coronary Artery Disease, Hx Hypercholesterolemia, Hx Hypertension, Hx Syncope Denies: Hx Aneurysm, Hx Auto Implanted Cardiovert Defib, Hx Cardiac Arrest, Hx Cardiomegaly, Hx Congenital Heart Disease, Hx Deep Vein Thrombosis, Hx Embolism, Hx Hypotension, Hx Pacemaker/ICD, Hx Peripheral Vascular Disease, Hx Rheumatic Fever, Hx Valvular Heart Disease, Other Cardiovascular Problems/ Disorders Respiratory History: Reports: Other Respiratory Problems/Disorders - SOB Denies: Hx Asthma, Hx Chronic Bronchitis, Hx Chronic Obstructive Pulmonary Disease (COPD), Hx Cystic Fibrosis, Hx Lung Cancer, Hx Pleural Effusion, Hx Pneumonia, Hx Pulmonary Edema, Hx Pulmonary Embolism, Hx Seasonal Allergies, Hx Sleep Apnea GI History: Reports: Hx Gastroesophageal Reflux Disease, Hx Gastrointestinal Bleed, Hx Hiatal Hernia - hx herniated diaphram, Other GI Disorders - hx pancreatitis; Denies: Hx Cirrhosis, Hx Crohn's Disease, Hx Diverticulosis, Hx Gall Bladder Disease, Hx Irritable Bowel, Hx Jaundice, Hx Obstructive Bowel, Hx Ileostomy, Hx Pyloric Stenosis, Hx Ulcer History: Denies: Hx Renal Disease Musculoskeletal History: Reports: Hx Arthritis, Hx Bursitis Denies: Hx Back Problems, Hx Congenital Bone Abnormalities, Hx Fibromyalgia, Hx Gout, Hx Orthopedic Injury, Hx Osteoporosis, Hx Scoliosis, Hx Tendonitis, Other Musculoskeletal History Sensory History: Reports: Hx Cataracts, Hx Contacts or Glasses - reading glasses , Hx Hearing Aid - @ home Denies: Hx Eye Injury, Hx Eye Prosthesis, Hx Glaucoma, Hx Legally Blind, Hx Macular Degeneration, Hx Vision Problem, Hx Deafness, Hx Hearing Problem, Other Sensory Impairments Opthamlomology History: Reports: Hx Cataracts, Hx Contacts or Glasses - reading glasses Denies: Hx Eye Injury, Hx Eye Prosthesis, Hx Glaucoma, Hx Legally Blind, Hx Macular Degeneration, Hx Vision Problem, Other Sensory Impairments Neurological History: Reports: Hx Transient Ischemic Attacks (TIA) - 1986 Denies: Hx Dementia, Hx Developmental Delay, Hx Headaches, Hx Migraine, Hx Nerve Disease, Hx Seizures, Hx Spinal Cord Injury, Other Neuro Impairments/ Disorders - Cancer History Cancer Type, Location and Year: 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 - Surgical History Surgery Procedure, Year, and Place: CARDIAC STENT PLACED 2011, left posterior shoulder melanoma removed Hx Anesthesia Reactions: No - Immunization History Date of Tetanus Vaccine: unknown Infectious Disease History: No Infectious Disease History: Reports: Hx of Known/Suspected MRSA Denies: Hx Clostridium Difficile, Hx Hepatitis, Hx Human Immunodeficiency Virus (HIV), Hx Shingles, Hx Tuberculosis, History Other Infectious Disease, Traveled Outside the [place] in Last 30 Days - Family History Known Family History: Positive: Cardiac Disease - Social History Alcohol Use: None Alcohol Amount: denies Hx Substance Use: No Substance Use Type: Reports: None Hx Tobacco Use: Yes Smoking Status (MU): Former Smoker Type: Cigarettes Amount Used/How Often: 3 PPD Length of Time of Smoking/Using Tobacco: 55 years Have You Smoked in the Last Year: No Review of Systems Negative: Fever ENT: Other - Negative nasal pain Positive: Epistaxis, Nasal Discharge - For last week All Other Systems Reviewed And Are Negative: Yes Physical Exam - Summary Physical Exam Summary: VITAL SIGNS: Reviewed. GENERAL: Patient is a well-developed and nourished MALE who is lying comfortable in the stretcher. Patient is not in any acute respiratory distress. HEAD AND FACE: No signs of trauma. No ecchymosis, hematomas or skull depressions. No sinus tenderness. Rhinoracket in the right nostril with a couple drops of blood. No blood in the back of the throat. EYES: PERRLA, EOMI x 2, No injected conjunctiva, no nystagmus. EARS: Hearing grossly intact. Ear canals and tympanic membranes are within normal limits. MOUTH: Oropharynx within normal limits. NECK: Supple, trachea is midline, no adenopathy, no JVD, no carotid bruit, no c- spine tenderness, neck with full ROM. CHEST: Symmetric, no tenderness at palpation. LUNGS: Clear to auscultation bilaterally. No wheezing or crackles. CVS: Regular rate and rhythm, S1 and S2 present, no murmurs or gallops appreciated. ABDOMEN: Soft, non-tender. No signs of distention. No rebound, no guarding, and no masses palpated. Bowel sounds are normal. EXTREMITIES: FROM in all major joints, no edema, no cyanosis or clubbing. NEURO: Alert and oriented x 3. No acute neurological deficits. Speech is normal and follows commands. SKIN: Dry and warm. Triage Information Reviewed: Yes Vital Signs On Initial Exam: Initial Vitals Temp Pulse Resp BP Pulse Ox 97.4 F 89 19 145/80 95 02/07/19 08:18 02/07/19 08:18 02/07/19 08:18 02/07/19 08:18 02/07/19 08:18 Vital Signs Reviewed: Yes Diagnostics - Vital Signs Vital Signs Temp Pulse Resp BP Pulse Ox 02/07/19 08:26 90 161/104 86 02/07/19 08:25 89 84 02/07/19 08:18 97.4 F 89 19 145/80 95 - Laboratory Lab Statement: Any lab studies that have been ordered have been reviewed, and results considered in the medical decision making process. Re-Evaluation - Re-Evaluation 1st re-eval Re-Evaluation Time: 10:00 Change: Improved Comment: No bleeding Second Eval Re-Evaluation Time: 11:40 Change: Unchanged Comment: Discussed discharge plan. EENT Course/Dx - Course Assessment/Plan: This patient is a 30-year-old male complaining of a bloody nose. Patient reports that he is taking Lasix and aspirin daily. This morning at approximately 4 AM he developed epistaxis. I inflated 1 ml more of the balloon and the bleeding stopped. Therefore, the patient will be discharged home with f/u to his PCP. I discussed all the findings and test results with the patient. Patient was instructed to return to the emergency room immediately if any of the symptoms return or worsen. Plan of care was discussed with the patient who understands and agrees. All questions were answered at patient satisfaction. There were no further complaints or concerns. Lung exam before discharge: CTA B/L. Good air exchange. No wheezing or crackles heard. CVS: S1 and S2 present. No murmurs appreciated. Patient is alert and oriented x 3. Patient is hemodynamically stable. Patient will be discharged home with follow up PCP in the next 2-3 days. - Diagnoses Provider Diagnoses: Epistaxis Discharge ED - Sign-Out/Discharge Documenting (check all that apply): Patient Departure - discharge Patient Received Moderate/Deep Sedation with Procedure: No - Discharge Plan Condition: Stable Disposition: HOME Patient Education Materials: Nosebleed (ED) Referrals: Shante Reyes MD [Primary Care Provider] - 3 Days Additional Instructions: Follow up with PCP in 2-3 days. Return to ED for any new or worsening symptoms. - Billing Disposition and Condition Condition: STABLE Disposition: Home - Attestation Statements Document Initiated by Scribe: Yes Documenting Scribe: Davina Madden Provider For Whom Manjit is Documenting (Include Credential): Negro Rodriguez MD. Scribe Attestation: Zoraida Jones Kathryn O'Connor, kell for Negro Rodriguez MD. on 02/08/19 at 0735. Scribe Documentation Reviewed: Yes Provider Attestation: The documentation as recorded by the scribe, Davina Madden accurately reflects the service I personally performed and the decisions made by , Negro Rodriguez MD. Status of Scribe Document: Viewed
[2019-02-07 12:05] VITALS: BP 130/70
== END 2019-02-07 12:05 | disposition home or self-care (01) ==
LOC: ED 08:14
DX: R04.0 Epistaxis (principal); D64.9 Anemia, unspecified; I48.91 Unspecified atrial fibrillation; I11.0 Hypertensive heart disease with heart failure; I50.9 Heart failure, unspecified; I25.10 Atherosclerotic heart disease of native coronary artery without angina pectoris; K21.9 Gastro-esophageal reflux disease without esophagitis; Z86.73 Personal history of transient ischemic attack (TIA), and cerebral infarction without residual deficits; Z95.5 Presence of coronary angioplasty implant and graft; Z87.891 Personal history of nicotine dependence; Z79.01 Long term (current) use of anticoagulants; Z79.82 Long term (current) use of aspirin; Z79.899 Other long term (current) drug therapy; Z88.8 Allergy status to other drugs, medicaments and biological substances; Z91.040 Latex allergy status
CPT/HCPCS: 99283

== ENCOUNTER 2019-02-08 06:49 | Emergency (ER) | payer MEDICARE ==
--- NOTE | 2019-02-08 07:28 | ED ---
Throat Pain/Nasal Congestion - HPI Summary HPI Summary: This patient is an 88-year-old male presenting to the ED for the third time in 2 days with nosebleed concerned. Patient states he awoke this morning at around 6 AM and the right sided nare Rhino Rocket had dislodged. Daughter is at bedside. There is no active bleeding. Patient denies any difficulty with breathing through the nose. Has an appointment tomorrow with ENT. - History of Current Complaint Chief Complaint: EDGeneral Time Seen by Provider: 02/08/19 07:13 Hx Obtained From: Patient Severity: Mild - Epiglottits Risk Factors Epiglottis Risk Factors: Negative - Allergies/Home Medications Allergies/Adverse Reactions: Allergies Allergy/AdvReac Type Severity Reaction Status Date / Time latex Allergy Severe Rash And Verified 02/08/19 07:14 Itching niacin Allergy Severe See Comment Verified 02/08/19 07:14 [email or web address] Allergy Anxiety Verified 02/08/19 07:14 PMH/Surg Hx/FS Hx/Imm Hx Previously Healthy: Yes Endocrine/Hematology History: Reports: Hx Anticoagulant Therapy, Hx Anemia Denies: Hx Blood Disorders, Hx Blood Transfusions, Hx Bone Marrow Disease, Hx Diabetes, Hx Systemic Lupus Erythematosus, Hx Sickle Cell Disease, Hx Thyroid Disease, Hx Unexplained Bleeding, Other Endocrine/Hematological Disorders Cardiovascular History: Reports: Hx Angina, Hx Angioplasty, Hx Atrial Fibrillation - ON [place], Hx Congestive Heart Failure, Hx Coronary Artery Disease, Hx Hypercholesterolemia, Hx Hypertension, Hx Syncope Denies: Hx Aneurysm, Hx Auto Implanted Cardiovert Defib, Hx Cardiac Arrest, Hx Cardiomegaly, Hx Congenital Heart Disease, Hx Deep Vein Thrombosis, Hx Embolism, Hx Hypotension, Hx Pacemaker/ICD, Hx Peripheral Vascular Disease, Hx Rheumatic Fever, Hx Valvular Heart Disease, Other Cardiovascular Problems/ Disorders Respiratory History: Reports: Other Respiratory Problems/Disorders - SOB Denies: Hx Asthma, Hx Chronic Bronchitis, Hx Chronic Obstructive Pulmonary Disease (COPD), Hx Cystic Fibrosis, Hx Lung Cancer, Hx Pleural Effusion, Hx Pneumonia, Hx Pulmonary Edema, Hx Pulmonary Embolism, Hx Seasonal Allergies, Hx Sleep Apnea GI History: Reports: Hx Gastroesophageal Reflux Disease, Hx Gastrointestinal Bleed, Hx Hiatal Hernia - hx herniated diaphram, Other GI Disorders - hx pancreatitis; Denies: Hx Cirrhosis, Hx Crohn's Disease, Hx Diverticulosis, Hx Gall Bladder Disease, Hx Irritable Bowel, Hx Jaundice, Hx Obstructive Bowel, Hx Ileostomy, Hx Pyloric Stenosis, Hx Ulcer History: Denies: Hx Renal Disease Musculoskeletal History: Reports: Hx Arthritis, Hx Bursitis Denies: Hx Back Problems, Hx Congenital Bone Abnormalities, Hx Fibromyalgia, Hx Gout, Hx Orthopedic Injury, Hx Osteoporosis, Hx Scoliosis, Hx Tendonitis, Other Musculoskeletal History Sensory History: Reports: Hx Cataracts, Hx Contacts or Glasses - reading glasses , Hx Hearing Aid - @ home Denies: Hx Eye Injury, Hx Eye Prosthesis, Hx Glaucoma, Hx Legally Blind, Hx Macular Degeneration, Hx Vision Problem, Hx Deafness, Hx Hearing Problem, Other Sensory Impairments Opthamlomology History: Reports: Hx Cataracts, Hx Contacts or Glasses - reading glasses Denies: Hx Eye Injury, Hx Eye Prosthesis, Hx Glaucoma, Hx Legally Blind, Hx Macular Degeneration, Hx Vision Problem, Other Sensory Impairments Neurological History: Reports: Hx Transient Ischemic Attacks (TIA) - 1986 Denies: Hx Dementia, Hx Developmental Delay, Hx Headaches, Hx Migraine, Hx Nerve Disease, Hx Seizures, Hx Spinal Cord Injury, Other Neuro Impairments/ Disorders - Cancer History Cancer Type, Location and Year: 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 - Surgical History Surgery Procedure, Year, and Place: CARDIAC STENT PLACED 2011, left posterior shoulder melanoma removed Hx Anesthesia Reactions: No - Immunization History Date of Tetanus Vaccine: unknown Hx Pertussis Vaccination: No Immunizations Up to Date: Yes Infectious Disease History: No Infectious Disease History: Reports: Hx of Known/Suspected MRSA Denies: Hx Clostridium Difficile, Hx Hepatitis, Hx Human Immunodeficiency Virus (HIV), Hx Shingles, Hx Tuberculosis, History Other Infectious Disease, Traveled Outside the [place] in Last 30 Days - Family History Known Family History: Positive: Cardiac Disease - Social History Occupation: Unemployed Lives: With Family Alcohol Use: None Alcohol Amount: denies Hx Substance Use: No Substance Use Type: Reports: None Hx Tobacco Use: Yes Smoking Status (MU): Former Smoker Type: Cigarettes Amount Used/How Often: 3 PPD Length of Time of Smoking/Using Tobacco: 55 years Have You Smoked in the Last Year: No Review of Systems Negative: Fever, Chills, Fatigue, Skin Diaphoresis ENT: Other - dislodgement of rhino rocket - R side Negative: Palpitations, Chest Pain Negative: Shortness Of Breath, Cough Musculoskeletal: Negative Skin: Negative Neurological: Negative All Other Systems Reviewed And Are Negative: Yes Physical Exam Triage Information Reviewed: Yes Vital Signs On Initial Exam: Initial Vitals Temp Pulse Resp BP Pulse Ox 97.3 F 78 18 131/84 92 02/08/19 06:50 02/08/19 06:50 02/08/19 06:50 02/08/19 06:50 02/08/19 06:50 Vital Signs Reviewed: Yes Appearance: Positive: Well-Appearing, Well-Nourished Skin: Positive: Warm, Skin Color Reflects Adequate Perfusion Head/Face: Positive: Normal Head/Face Inspection Eyes: Positive: EOMI, CADEN, Conjunctiva Clear ENT: Positive: Other - right sided nose bleed recently - none currently Neck: Positive: Supple, No Lymphadenopathy Respiratory/Lung Sounds: Positive: Breath Sounds Present Cardiovascular: Positive: Normal Musculoskeletal: Positive: Strength/ROM Intact Neurological: Positive: Speech Normal Psychiatric: Positive: Affect/Mood Appropriate AVPU Assessment: Alert Diagnostics - Vital Signs Vital Signs Temp Pulse Resp BP Pulse Ox 02/08/19 06:50 97.3 F 78 18 131/84 92 - Laboratory Lab Statement: Any lab studies that have been ordered have been reviewed, and results considered in the medical decision making process. EENT Course/Dx - Course Course Of Treatment: Patient is evaluated for right-sided nosebleed with a recent Rhino Rocket dislodgment. On physical examination, there is no active bleeding. There is no ptachy area or lesions with any bleeding. Small amount of lubrication applied inside the nare and O2 NC applied. Pt OK for discharge and will f/u with ENT. - Differential Diagnoses Differential Diagnoses: Other - nasal packing dislodged - Diagnoses Provider Diagnoses: Encounter for removal of nasal packing Discharge ED - Sign-Out/Discharge Documenting (check all that apply): Patient Departure Patient Received Moderate/Deep Sedation with Procedure: No - Discharge Plan Condition: Critical Disposition: HOME Referrals: Shante Reyes MD [Primary Care Provider] - Additional Instructions: Keep your appt with ENT - call today - Billing Disposition and Condition Condition: CRITICAL Disposition: Home
[2019-02-08 07:34] VITALS: BP 127/69
== END 2019-02-08 07:33 | disposition home or self-care (01) ==
LOC: ED 06:49
DX: Z48.00 Encounter for change or removal of nonsurgical wound dressing (principal); I48.91 Unspecified atrial fibrillation; Z79.01 Long term (current) use of anticoagulants; I11.0 Hypertensive heart disease with heart failure; I50.9 Heart failure, unspecified; Z95.5 Presence of coronary angioplasty implant and graft; Z88.8 Allergy status to other drugs, medicaments and biological substances; Z91.040 Latex allergy status; Z87.891 Personal history of nicotine dependence
CPT/HCPCS: 99282

== ENCOUNTER 2019-02-19 07:53 | Emergency (ER) | payer MEDICARE ==
--- NOTE | 2019-02-19 08:09 | ED ---
GI/ HPI - HPI Summary HPI Summary: The patient is an 88 y/o M [place] [facility] [place] by daughter with a chief complaint of small abrasion on the penis starting last night with continued bleeding. His daughter reports that she was showering the patient last night and noticed blood from the genital area in the bathtub, and she examined him to find a small cut on the penis. He woke up with the abrasion still bleeding this morning. He denies any testicular pain or urinary retention. His daughter notes dehydration with dark urine but no hematuria. Currently, he rates the pain 0/10 in severity. PMHx: anemia, atrial fibrillation , HTN, MRSA. Former smoker, no EtOH, no substance use. Medications reviewed. Allergies noted. - History of Current Complaint Chief Complaint: EDUrogenitalProblems Stated Complaint: BLEEDING FROM GROIN PER PT Hx Obtained From: Patient, Family/Car Park Attendant - daughter Onset/Duration: Started Hours Ago - last night, Still Present Timing: Lasting Hours Severity: Moderate Current Severity: Moderate Pain Intensity: 0 Additional Locations for Males: Penis Pain Characteristics: Dull Associated Signs and Symptoms: Positive: Other: - Positive: small abrasion on the penis, dehydration. Negative: testicular pain, urinary retention. Negative : Hematuria Aggravating Factor(s): Nothing Alleviating Factor(s): Nothing - Additional Pertinent History Primary Care Physician: [id number] - Allergy/Home Medications Allergies/Adverse Reactions: Allergies Allergy/AdvReac Type Severity Reaction Status Date / Time latex Allergy Severe Rash And Verified 02/19/19 07:59 Itching niacin Allergy Severe See Comment Verified 02/19/19 07:59 [email or web address] Allergy Anxiety Verified 02/19/19 07:59 PMH/Surg Hx/FS Hx/Imm Hx Endocrine/Hematology History: Reports: Hx Anticoagulant Therapy, Hx Anemia Denies: Hx Blood Disorders, Hx Blood Transfusions, Hx Bone Marrow Disease, Hx Diabetes, Hx Systemic Lupus Erythematosus, Hx Sickle Cell Disease, Hx Thyroid Disease, Hx Unexplained Bleeding, Other Endocrine/Hematological Disorders Cardiovascular History: Reports: Hx Angina, Hx Angioplasty, Hx Atrial Fibrillation - ON [place], Hx Congestive Heart Failure, Hx Coronary Artery Disease, Hx Hypercholesterolemia, Hx Hypertension, Hx Syncope Denies: Hx Aneurysm, Hx Auto Implanted Cardiovert Defib, Hx Cardiac Arrest, Hx Cardiomegaly, Hx Congenital Heart Disease, Hx Deep Vein Thrombosis, Hx Embolism, Hx Hypotension, Hx Pacemaker/ICD, Hx Peripheral Vascular Disease, Hx Rheumatic Fever, Hx Valvular Heart Disease, Other Cardiovascular Problems/ Disorders Respiratory History: Reports: Other Respiratory Problems/Disorders - SOB Denies: Hx Asthma, Hx Chronic Bronchitis, Hx Chronic Obstructive Pulmonary Disease (COPD), Hx Cystic Fibrosis, Hx Lung Cancer, Hx Pleural Effusion, Hx Pneumonia, Hx Pulmonary Edema, Hx Pulmonary Embolism, Hx Seasonal Allergies, Hx Sleep Apnea GI History: Reports: Hx Gastroesophageal Reflux Disease, Hx Gastrointestinal Bleed, Hx Hiatal Hernia - hx herniated diaphram, Other GI Disorders - hx pancreatitis; Denies: Hx Cirrhosis, Hx Crohn's Disease, Hx Diverticulosis, Hx Gall Bladder Disease, Hx Irritable Bowel, Hx Jaundice, Hx Obstructive Bowel, Hx Ileostomy, Hx Pyloric Stenosis, Hx Ulcer History: Denies: Hx Renal Disease Musculoskeletal History: Reports: Hx Arthritis, Hx Bursitis Denies: Hx Back Problems, Hx Congenital Bone Abnormalities, Hx Fibromyalgia, Hx Gout, Hx Orthopedic Injury, Hx Osteoporosis, Hx Scoliosis, Hx Tendonitis, Other Musculoskeletal History Sensory History: Reports: Hx Cataracts, Hx Contacts or Glasses - reading glasses , Hx Hearing Aid - @ home Denies: Hx Eye Injury, Hx Eye Prosthesis, Hx Glaucoma, Hx Legally Blind, Hx Macular Degeneration, Hx Vision Problem, Hx Deafness, Hx Hearing Problem, Other Sensory Impairments Opthamlomology History: Reports: Hx Cataracts, Hx Contacts or Glasses - reading glasses Denies: Hx Eye Injury, Hx Eye Prosthesis, Hx Glaucoma, Hx Legally Blind, Hx Macular Degeneration, Hx Vision Problem, Other Sensory Impairments Neurological History: Reports: Hx Transient Ischemic Attacks (TIA) - 1986 Denies: Hx Dementia, Hx Developmental Delay, Hx Headaches, Hx Migraine, Hx Nerve Disease, Hx Seizures, Hx Spinal Cord Injury, Other Neuro Impairments/ Disorders - Cancer History Cancer Type, Location and Year: 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 - Surgical History Surgery Procedure, Year, and Place: CARDIAC STENT PLACED 2011, left posterior shoulder melanoma removed Hx Anesthesia Reactions: No - Immunization History Date of Tetanus Vaccine: unknown Infectious Disease History: No Infectious Disease History: Reports: Hx of Known/Suspected MRSA Denies: Hx Clostridium Difficile, Hx Hepatitis, Hx Human Immunodeficiency Virus (HIV), Hx Shingles, Hx Tuberculosis, History Other Infectious Disease, Traveled Outside the [place] in Last 30 Days - Family History Known Family History: Positive: Cardiac Disease - Social History Alcohol Use: None Alcohol Amount: denies Hx Substance Use: No Substance Use Type: Reports: None Hx Tobacco Use: Yes Smoking Status (MU): Former Smoker Type: Cigarettes Amount Used/How Often: 3 PPD Length of Time of Smoking/Using Tobacco: 55 years Have You Smoked in the Last Year: No Review of Systems Positive: Other - dehydration Positive: other - Positive: small abrasion on the penis. Negative: testicular pain, urinary retention.. Negative: hematuria All Other Systems Reviewed And Are Negative: Yes Physical Exam - Summary Physical Exam Summary: VITAL SIGNS: Reviewed. GENERAL: Patient is a well-developed and nourished male who is lying comfortable in the stretcher. Patient is not in any acute respiratory distress. HEAD AND FACE: No signs of trauma. No ecchymosis, hematomas or skull depressions. No sinus tenderness. EYES: PERRLA, EOMI x 2, No injected conjunctiva, no nystagmus. EARS: Hearing grossly intact. Ear canals and tympanic membranes are within normal limits. MOUTH: Oropharynx within normal limits. NECK: Supple, trachea is midline, no adenopathy, no JVD, no carotid bruit, no c- spine tenderness, neck with full ROM. CHEST: Symmetric, no tenderness at palpation. LUNGS: Clear to auscultation bilaterally. No wheezing or crackles. CVS: Regular rate and rhythm, S1 and S2 present, no murmurs or gallops appreciated. ABDOMEN: Soft, non-tender. No signs of distention. No rebound, no guarding, and no masses palpated. Bowel sounds are normal. EXTREMITIES: FROM in all major joints, no edema, no cyanosis or clubbing. NEURO: Alert and oriented x 3. No acute neurological deficits. Speech is normal and follows commands. SKIN: Dry and warm. : Uncircumcised penis. Small superficial abrasion on the shaft of the penis. Triage Information Reviewed: Yes Vital Signs On Initial Exam: Initial Vitals Temp Pulse Resp BP Pulse Ox 97.2 F 88 20 145/87 92 02/19/19 07:54 02/19/19 07:54 02/19/19 07:54 02/19/19 07:54 02/19/19 07:54 Vital Signs Reviewed: Yes Procedures - Sedation Patient Received Moderate/Deep Sedation with Procedure: No - Laceration/Wound Repair 1 Location: Other - shaft of penis Description: Irregular Length, Depth and Shape: small abrasion Laceration/Wound Explored: clean Closure: Skin Adhesive - surgicel Diagnostics - Vital Signs Vital Signs Temp Pulse Resp BP Pulse Ox 02/19/19 07:54 97.2 F 88 20 145/87 92 - Laboratory Lab Statement: Any lab studies that have been ordered have been reviewed, and results considered in the medical decision making process. GIGU Course/Dx - Course Assessment/Plan: Patient is an 88 y/o M with chief complaint of bleeding from the penis onset last night without any hematuria, testicular pain, or urinary retention, although he is feeling dehydrated. Patient has an uncircumcised penis with a small abrasion on his shaft of the penis. No sutures needed. Surgicel applied and bleeding stopped. Boostrix given. I discussed all the findings and test results with the patient. Patient was instructed to return to the emergency room immediately if any of the symptoms return worsens. Plan of care was discussed with the patient and understands and agrees. All questions were answered at patient satisfaction. There were no further complaints or concerns. Lung exam before discharge: CTA B/L. Good air exchange. No wheezing or crackles heard. CVS: S1 and S2 present. No murmurs appreciated. Patient is alert and oriented x 3. Patient is hemodynamically stable. Patient will be discharged home with follow up PCP in the next 2-3 days. - Diagnoses Provider Diagnoses: Abrasion of penis Discharge ED - Sign-Out/Discharge Documenting (check all that apply): Patient Departure - Patient will be discharged home. - Discharge Plan Condition: Good Disposition: HOME Patient Education Materials: Abrasion (ED) Referrals: Shante Reyes MD [Primary Care Provider] - 1 Day Additional Instructions: Follow up with your primary care provider to see if she would like you to stop the diuretics that you asked about today. Return to the emergency department for any new or worsening symptoms. - Billing Disposition and Condition Condition: GOOD Disposition: Home - Attestation Statements Document Initiated by Scribe: Yes Documenting Scribe: Celena Flores Provider For Whom Manjit is Documenting (Include Credential): Dr. Negro Rodriguez MD Scribe Attestation: ICelena, scribed for Dr. Negro Rodriguez MD on 02/19/19 at 0915. Scribe Documentation Reviewed: Yes Provider Attestation: The documentation as recorded by the scribe, Celena Flores accurately reflects the service I personally performed and the decisions made by me, Dr. Negro Rordiguez MD Status of Scribe Document: Viewed
[2019-02-19] MEDS ORDERED: Tetan/Diph/Pertus SYR(Tdap)* 0.5 ML SYR(BOOSTRIX) use SYR contains LATEX IM ONE (08:17)
[2019-02-19 08:27] VITALS: BP 137/83
== END 2019-02-19 08:21 | disposition home or self-care (01) ==
LOC: ED 07:53
DX: S30.812A Abrasion of penis, initial encounter (principal); X58.XXXA Exposure to other specified factors, initial encounter; Y92.9 Unspecified place or not applicable; Z23 Encounter for immunization; I48.91 Unspecified atrial fibrillation; Z79.01 Long term (current) use of anticoagulants; I11.0 Hypertensive heart disease with heart failure; I50.9 Heart failure, unspecified; Z95.5 Presence of coronary angioplasty implant and graft; Z88.8 Allergy status to other drugs, medicaments and biological substances; Z91.040 Latex allergy status; Z87.891 Personal history of nicotine dependence
CPT/HCPCS: 90471; 90715; 99282

== ENCOUNTER 2019-03-26 08:00 | Inpatient (IN) | payer MEDICARE ==
--- NOTE | 2019-03-26 08:17 | ED ---
Complex/Multi-Sys Presentation - HPI Summary HPI Summary: The pt is an 88 yr old male w hx CAD, 9 stents, CHF on lasix who is [facility] c/o weakness beginning 1 day [employer]. Per the daughter, he was having a hard time getting out of bed yesterday and was feeling very weak. He would try to get out of bed but could not stand up and fell back asleep for hours. The daughter mentions that this in unusual for him. She also notes that he fell 3 weeks [employer] and had some right leg pain afterwards. His face also appeared swollen before bed last night and she was concerned he was retaining fluids. He rates his current pain severity a /10. No aggravating or alleviating factors noted. He also reports loss of appetite, right hip pain, and SOB (since resolved ) but denies any CP. He has 9 cardiac stents and wears oxygen 24/7 (4L). - History Of Current Complaint Time Seen by Provider: 03/26/19 08:03 Hx Obtained From: Patient, Family/Sealing Machine Operator - daughter Onset/Duration: Sudden Onset, Lasting Days, Still Present Timing: Constant Severity Currently: None Severity Initially: Mild Aggravating Factor(s): nothing Alleviating Factor(s): nothing Associated Signs And Symptoms: Positive: Weakness, SOB - now resolved, Nausea, Other - pos - left leg pain, swelling in face, right hip pain. Negative: Chest Pain - Allergies/Home Medications Allergies/Adverse Reactions: Allergies Allergy/AdvReac Type Severity Reaction Status Date / Time latex Allergy Severe Rash And Verified 03/26/19 08:13 Itching niacin Allergy Severe See Comment Verified 03/26/19 08:13 [email or web address] Allergy Anxiety Verified 03/26/19 08:13 PMH/Surg Hx/FS Hx/Imm Hx Endocrine/Hematology History: Reports: Hx Anticoagulant Therapy, Hx Anemia Denies: Hx Blood Disorders, Hx Blood Transfusions, Hx Bone Marrow Disease, Hx Diabetes, Hx Systemic Lupus Erythematosus, Hx Sickle Cell Disease, Hx Thyroid Disease, Hx Unexplained Bleeding, Other Endocrine/Hematological Disorders Cardiovascular History: Reports: Hx Angina, Hx Angioplasty, Hx Atrial Fibrillation - ON [place], Hx Congestive Heart Failure, Hx Coronary Artery Disease, Hx Hypercholesterolemia, Hx Hypertension, Hx Syncope Denies: Hx Aneurysm, Hx Auto Implanted Cardiovert Defib, Hx Cardiac Arrest, Hx Cardiomegaly, Hx Congenital Heart Disease, Hx Deep Vein Thrombosis, Hx Embolism, Hx Hypotension, Hx Pacemaker/ICD, Hx Peripheral Vascular Disease, Hx Rheumatic Fever, Hx Valvular Heart Disease, Other Cardiovascular Problems/ Disorders Respiratory History: Reports: Other Respiratory Problems/Disorders - SOB Denies: Hx Asthma, Hx Chronic Bronchitis, Hx Chronic Obstructive Pulmonary Disease (COPD), Hx Cystic Fibrosis, Hx Lung Cancer, Hx Pleural Effusion, Hx Pneumonia, Hx Pulmonary Edema, Hx Pulmonary Embolism, Hx Seasonal Allergies, Hx Sleep Apnea GI History: Reports: Hx Gastroesophageal Reflux Disease, Hx Gastrointestinal Bleed, Hx Hiatal Hernia - hx herniated diaphram, Other GI Disorders - hx pancreatitis; Denies: Hx Cirrhosis, Hx Crohn's Disease, Hx Diverticulosis, Hx Gall Bladder Disease, Hx Irritable Bowel, Hx Jaundice, Hx Obstructive Bowel, Hx Ileostomy, Hx Pyloric Stenosis, Hx Ulcer History: Denies: Hx Renal Disease Musculoskeletal History: Reports: Hx Arthritis, Hx Bursitis Denies: Hx Back Problems, Hx Congenital Bone Abnormalities, Hx Fibromyalgia, Hx Gout, Hx Orthopedic Injury, Hx Osteoporosis, Hx Scoliosis, Hx Tendonitis, Other Musculoskeletal History Sensory History: Reports: Hx Cataracts, Hx Contacts or Glasses - reading glasses , Hx Hearing Aid - @ home Denies: Hx Eye Injury, Hx Eye Prosthesis, Hx Glaucoma, Hx Legally Blind, Hx Macular Degeneration, Hx Vision Problem, Hx Deafness, Hx Hearing Problem, Other Sensory Impairments Opthamlomology History: Reports: Hx Cataracts, Hx Contacts or Glasses - reading glasses Denies: Hx Eye Injury, Hx Eye Prosthesis, Hx Glaucoma, Hx Legally Blind, Hx Macular Degeneration, Hx Vision Problem, Other Sensory Impairments Neurological History: Reports: Hx Transient Ischemic Attacks (TIA) - 1986 Denies: Hx Dementia, Hx Developmental Delay, Hx Headaches, Hx Migraine, Hx Nerve Disease, Hx Seizures, Hx Spinal Cord Injury, Other Neuro Impairments/ Disorders - Cancer History Cancer Type, Location and Year: 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 - Surgical History Surgery Procedure, Year, and Place: CARDIAC STENT PLACED 2011, left posterior shoulder melanoma removed Hx Anesthesia Reactions: No - Immunization History Date of Tetanus Vaccine: unknown Infectious Disease History: Reports: Hx of Known/Suspected MRSA Denies: Hx Clostridium Difficile, Hx Hepatitis, Hx Human Immunodeficiency Virus (HIV), Hx Shingles, Hx Tuberculosis, History Other Infectious Disease, Traveled Outside the [place] in Last 30 Days - Family History Known Family History: Positive: Cardiac Disease - Social History Alcohol Use: None Alcohol Amount: denies Hx Substance Use: No Substance Use Type: Reports: None Hx Tobacco Use: Yes Smoking Status (MU): Former Smoker Type: Cigarettes Amount Used/How Often: 3 PPD Length of Time of Smoking/Using Tobacco: 55 years Have You Smoked in the Last Year: No Review of Systems Negative: Chest Pain Positive: Shortness Of Breath - now resolved Negative: Nausea Musculoskeletal: Other - pos - left leg pain, right hip pain Skin: Other - pos - swelling in face Positive: Weakness All Other Systems Reviewed And Are Negative: Yes Physical Exam - Summary Physical Exam Summary: Constitutional: Well-developed, Well-nourished, Alert. (-) Distressed Skin: Warm, Dry HENT: Normocephalic; Atraumatic, nasal cannula in place Eyes: Conjunctiva normal Neck: Musculoskeletal ROM normal neck. (-) JVD, (-) Stridor, (-) Nuchal rigidity Cardio: Rhythm regular, rate normal, Heart sounds normal; Intact distal pulses; Radial pulses are 2+ and symmetric. (-) Murmur Pulmonary/Chest wall: slightly inc WOB, diminished lung sounds L lung, no wheezes Abd: Soft, (-) tenderness, mild distension, (-) Guarding, (-) Rebound Musculoskeletal: (-) Edema, + right hip tenderness Lymph: (-) Cervical adenopathy Neuro: Alert, Oriented x3 Psych: Mood and affect Normal Triage Information Reviewed: Yes Vital Signs Reviewed: Yes Procedures - Sedation Patient Received Moderate/Deep Sedation with Procedure: No Diagnostics - Laboratory Result Diagrams: 03/26/19 08:35 03/26/19 08:35 Lab Statement: Any lab studies that have been ordered have been reviewed, and results considered in the medical decision making process. - Radiology CXR Radiology Interpretation Completed By: Radiologist Summary of Radiographic Findings: IMPRESSION: PROGRESSION OF LEFT PLEURAL EFFUSION WITH COMPLETE OPACIFICATION OF LEFT HEMITHORAX. SMALL RIGHT PLEURAL EFFUSION WITH RIGHT BASILAR ATELECTASIS VERSUS CONSOLIDATION Hip XR Radiology Interpretation Completed By: Radiologist Summary of Radiographic Findings: IMPRESSION: 1. OSTEOPENIA. 2. OSTEOARTHRITIS. 3. PERIPHERAL ARTERIAL DISEASE. 4. NO ACUTE OSSEOUS INJURY. IF SYMPTOMS PERSIST, RECOMMEND REPEAT IMAGING - EKG 843 Cardiac Rate: Other Rate - juncitonal rhythm Summary of EKG Findings: An EKG done at 0843 shows a junctional rhythm @ 90 bpm with no significant change from previous EKG on 01/18/2019. Re-Evaluation - Re-Evaluation First Eval Re-Evaluation Time: 10:15 Comment: labs notable for elevated BNP, trop 0.04. CXR w complete opacification of L lung. Complex Multi-Symp Course/Dx Course Of Treatment: 88 y/o male w hx CHF on 4L O2, CAD p/w fatigue. - PE w elderly male, NAD. Diminished lung sounds R lung. Concern for fluid overload/ PNA. No fevers or cough but does report GUILLEN and orthopnea. 95% on baseline 4 L. Abd w mild distention likely 2/2 fluid overload. - check labs including CBC to assess for infection, BNP for HF, trop given SOB. EKG baseline here. Given 80 lasix. - Diagnoses Provider Diagnoses: Difficulty breathing - Physician Notifications Discussed Care Of Patient With: Tyron Thrasher - Dr. Thrasher will admit the pt to [facility]. Time Discussed With Above Provider: 10:35 Instructed by Provider To: Admit As Inpatient Discharge ED - Sign-Out/Discharge Documenting (check all that apply): Patient Departure - admit - Discharge Plan Condition: Stable Disposition: ADMITTED TO [facility] Referrals: Shante Reyes MD [Primary Care Provider] - - Billing Disposition and Condition Condition: STABLE Disposition: Admitted to [facility] - Attestation Statements Document Initiated by Rosaibe: Yes Documenting Scribe: Andi Mejía Provider For Whom Scribe is Documenting (Include Credential): Valentin Cervantes Scribe Attestation: I, Andi Mejía, scribed for Valentin Garsia. [place] on 03/26/19 at 1126. Scribe Documentation Reviewed: Yes Provider Attestation: The documentation as recorded by the rosaibeAndi accurately reflects the service I personally performed and the decisions made by me, Valentin Cervantes Status of Scribe Document: Viewed
[2019-03-26 08:47] LABS: ABS Eosinophils 0.1 10^3/ul (0-0.6); ABS Lymphocytes 0.6 10^3/ul (1.0-4.8); ABS Monocytes 1.2 10^3/ul (0-0.8); ABS Neutrophils 5.6 10^3/ul (1.5-7.7); Eosinophil % 0.9 %; Hematocrit 42 % (42-52); Hemoglobin 13.9 g/dL (14.0-18.0); Lymphocyte % 8.5 %; Mean Corpuscular HGB Conc 33 g/dL (31-36); Mean Corpuscular Hemoglobin 31 pg (27-31); Mean Corpuscular Volume 95 fL (80-94); Mean Platelet Volume 10.3 fL (7.4-10.4); Nucleated Red Blood Cells % 0.1; Platelet Count 106 10^3/uL (150-450); Red Blood Count 4.43 10^6 /uL (4.18-5.48); Red Cell Distribution Width 15 % (10-15); White Blood Count 7.5 10^3/uL (3.5-10.8)
[2019-03-26 09:01] LABS: ALT 21 U/L (7-52); AST 32 U/L (13-39); Albumin/Globulin Ratio 1.3 (1-3); Alkaline Phosphatase 50 U/L (34-104); Anion Gap 6 mmol/L (2-11); BUN/Creatinine Ratio 20.5 (8-20); Blood Urea Nitrogen 16 mg/dL (6-24); CO2 Carbon Dioxide 31 mmol/L (22-32); Calcium 9.6 mg/dL (8.6-10.3); Chloride 97 mmol/L (101-111); EGFR African American 113.7 (>60); EGFR Non-African American 93.9 (>60); Globulin 3.1 g/dL (2-4); Glucose 97 mg/dL (70-100); Magnesium 2.1 mg/dL (1.9-2.7); Potassium 4.3 mmol/L (3.5-5.0); Sodium 134 mmol/L (135-145); Total Protein 7.1 g/dL (6.4-8.9)
[2019-03-26 09:30] LABS: Troponin I 0.04 ng/mL (<0.04)
[2019-03-26] MEDS ORDERED: Furosemide IV* 10 MG/ML VIAL (40 MG) IV SLOW PU ONE (09:32)
[2019-03-26 10:27] LABS: Urine Appearance Cloudy; Urine Bilirubin Negative (Negative); Urine Blood Negative (Negative); Urine Color Yellow; Urine Glucose Negative (Negative); Urine Ketones Negative (Negative); Urine Nitrite Negative (Negative); Urine Protein Negative (Negative); Urine Specific Gravity 1.011 (1.010-1.030); Urine Urobilinogen Negative (Negative)
[2019-03-26] MEDS ORDERED: Acetaminophen TAB* 325 MG PO PRN (13:07)
[2019-03-26] MEDS: Clopidogrel TAB* 75 MG PO SCH (13:35)
[2019-03-26] MEDS: Metoprolol Succinate XL TAB* 25 MG PO SCH ×2 (13:35→20:14)
[2019-03-26] MEDS: Aspirin EC TAB* 81 MG TAB.EC PO SCH (13:35)
[2019-03-26] MEDS ORDERED: Azithromycin 500 mg/250 ml NS 500 MG/250 ML BAG IVPB ONE (14:00)
[2019-03-26] MEDS ORDERED: Ramipril CAP* 2.5 MG PO SCH (14:00)
[2019-03-26] MEDS ORDERED: Enoxaparin(*) 40 MG/0.4 ML SYR SUBCUT SCH (14:00)
[2019-03-26] MEDS: cefTRIAXone(*) 1 GM in NS 0.9% 50 ML* 50 ML IVPB SCH (15:36)
--- NOTE | 2019-03-26 15:47 | HP ---
HISTORY AND PHYSICAL: DATE OF ADMISSION: 03/26/19 PRIMARY CARE PROVIDER: Dr. Shante Reyes. ATTENDING PHYSICIAN: Tyron Thrasher MD * (dictated by ROSALINDA Giraldo). CHIEF COMPLAINT: 1. Weakness. 2. Fall approximately 3 weeks ago. 3. Right leg pain. HISTORY OF PRESENT ILLNESS: Mr. Raygoza is an 88-year-old male with a past medical history of coronary artery disease, requiring 9 stents; heart failure, preserved ejection fraction; atrial fibrillation, not on anticoagulation, who presented to the ER today with complaints of weakness and fall. He is accompanied by his 2 daughters. He states that he typically walks with a walker , but he has been weak and bedbound since yesterday. His daughters note that they sat him up in bed and he fell backward and they had to hold him up for feedings. Again, he typically walks with a walker, but has not ambulated since yesterday. On Wednesday, they noticed he had a decreased appetite and then weakness began on Wednesday. Weakness is generalized in bilateral upper and lower extremities. The patient complains of cough x1 to 2 weeks. He was prescribed and finished a 5-day course of levofloxacin. He denies fevers or chills. He denies abdominal pain, nausea, vomiting, diarrhea. He denies dysuria, urinary frequency, urgency, retention, although his daughters note that he has had decreased urine output with 80 p.o. Lasix. They have doubled his Lasix starting yesterday due to increased lower extremity edema. The patient's daughter, Bee, notes that the patient's normal weight is approximately 213 pounds. Two weeks ago, the patient gained some weight and was weighing 219 to 220. She notes that she increased his Lasix and he is now back down to 213. He did have some lower extremity edema at presentation to the ER, which has resolved somewhat since administration of IV Lasix. The patient was reported to have fallen approximately 2 to 3 weeks ago resulting in right leg pain, specifically right hip pain. He denies weakness in that extremity and notes that he is still able to move the leg. He denies dizziness , lightheadedness, loss of consciousness, chest pain. He does have shortness of breath and requires 3 L of oxygen at all times, but notes that his shortness of breath has not worsened recently. He has a cough without fevers, chills, sweats. He has generalized weakness without abdominal pain, nausea, vomiting, diarrhea, abdominal symptoms. He denies muscle or joint pain. He denies focal neurological deficit. In the ER, the patient received a full workup including blood work which revealed a thrombocytopenia which is chronic, a BNP of 182. Chest x-ray was performed and showed left pleural effusion, small right pleural effusion with right basilar atelectasis versus consolidation. Right hip and pelvis x-ray shows osteopenia, osteoarthritis, PAD, no acute osseous injury. The patient was given furosemide 80 IV in the ER. Hospitalist team was asked to evaluate the patient for admission. PAST MEDICAL HISTORY: 1. CAD with 9 stents. 2. Heart failure, most recent EF 50% to 55% in July 2018. 3. Moderate aortic stenosis. 4. Hypertension. 5. Hyperlipidemia. 6. History of TIA in 1986. 7. GERD. 8. Hiatal hernia. 9. History of GI bleed, which I believe is why he is no longer on anticoagulation. 10. Anemia. 11. Arthritis. 12. Squamous cell carcinoma, lower lip. PAST SURGICAL HISTORY: Cardiac stent, left shoulder melanoma removal. HOME MEDICATIONS: 1. Aspirin 81 mg p.o. daily. 2. Clopidogrel 75 mg p.o. daily. 3. Furosemide 80 mg p.o. daily. 4. Metoprolol succinate 50 mg p.o. b.i.d. 5. Multivitamin/minerals 1 tab p.o. daily. 6. Potassium chloride 20 mEq p.o. daily. 7. Ramipril 2.5 mg p.o. daily. 8. Simvastatin 40 mg p.o. daily. DRUG ALLERGIES: LATEX, NIACIN, ZOLPIDEM. FAMILY HISTORY: Brother from [place]. Another brother had a cardiac bypass. Father, brain tumor. No family history of diabetes mellitus, CVA. SOCIAL HISTORY: The patient quit smoking in 1999. Prior to that, he smoked approximately 2 packs per day for 40 to 50 years. He rarely uses alcohol. 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 He lives with his daughter, Bee. His other daughter and granddaughter live downstairs from him. In the event that he is unable to make his own medical decisions, he has appointed his daughter, Bee, to be his surrogate decision maker. REVIEW OF SYSTEMS: A 14-point review of systems has been performed and all the pertinent positives and negatives are in the HPI, all other systems are negative. PHYSICAL EXAMINATION GENERAL: Mr. Raygoza is a well-developed, well-nourished obese older white male who is sitting up in bed, he appears to be in no acute distress. He is very mildly pleasantly confused at times. He is breathing comfortably on his baseline 3 to 4 L of oxygen. VITAL SIGNS: Temperature 98.7 temporal, heart rate 91 ,respiratory rate 21, oxygen saturation 96% on 4 L, blood pressure 133/77. HEENT: Visual arciniega are grossly intact. PERRL. EOMI. Nonicteric sclerae. Hearing grossly intact. Oral mucous membranes are moist. There are no lesions. Pharynx is clear without exudate or erythema. Tongue is at midline. Palate elevates symmetrically. RESPIRATORY: Symmetrical chest expansion without use of accessory muscles. Lungs clear to auscultation bilaterally without rhonchi, wheezes, or rubs. CARDIOVASCULAR: Irregular rate and rhythm with S1, S2 present without murmurs, rubs, clicks, or gallops. There is no JVD. There is 1+ pretibial pitting edema to bilateral lower extremities. ABDOMEN: Obese. Bowel sounds in all quadrants. Soft, nontender to palpation. James in place. MUSCULOSKELETAL: Full range motion without pain or deformity. Right hip nontender to palpation with full range of motion. 1+ pretibial pitting edema, bilateral lower extremities. NEURO: The patient is awake. He is alert and oriented to person and place. He is unable to tell me the date, but with some coaxing is able to say who the current president is. Cranial nerves are grossly intact. His strength is 5/5 bilaterally in upper and lower extremities. DIAGNOSTIC STUDIES/LAB DATA: HGB 13.9, platelet 106. BNP 182. Troponin 0.04. Chest x-ray: Progression of left pleural effusion with complete opacification of the left hemothorax, small right pleural effusion with right basilar atelectasis versus consolidation. Pelvis/right hip osteopenia, osteoarthritis, peripheral arterial disease, no acute osseous injury. If symptoms persist, recommend repeat imaging. ASSESSMENT AND PLAN: Mr. Raygoza is an 88-year-old male with a past medical history of coronary artery disease with stenting; heart failure, preserved ejection fraction; atrial fibrillation, not on anticoagulation presumably due to history of gastrointestinal bleed, who presented to the ER today with complaints of weakness. He was found to have atelectasis versus consolidation on chest x-ray as well as a left pleural effusion. The patient will be admitted for: 1. Weakness. The patient presents with weakness x1 to 2 days and associated cough x1 to 2 weeks. He also has some increased lower extremity edema without increased oxygen demands. There is concern that the patient may have ongoing pneumonia. He was treated with a 5-day course of levofloxacin, which he finished completely. We will start ceftriaxone and azithromycin. Urine for legionella and Strep pneumo will be ordered as well as sputum cultures. His weakness could also be related to an exacerbation of his heart failure, which will be treated with IV Lasix. He will receive physical therapy and occupational therapy. 2. Left pleural effusion. The patient has a left pleural effusion. Pulmonology has been consulted. Dr. Patel plans for thoracentesis tomorrow to analyze the fluid and provide some possible relief. He does require 3 to 4 L of oxygen at all times and has no increased oxygen demands and no reported shortness of breath. 3. Acute on chronic heart failure exacerbation with preserved ejection fraction. The patient appears to be in mild exacerbation of heart failure. He has a very mildly elevated BNP with some increase in lower extremity edema. He has been given 80 IV Lasix in the ER. He takes 80 p.o. Lasix at home. He will be continued on 40 IV Lasix b.i.d. starting tomorrow. Intake, output and daily weights have been ordered. His reported home normal weight is 213 pounds. 4. Right hip pain. The patient complains of right hip pain. He has full range of motion. There is no hardware in the area. A pelvis and right hip x- ray revealed osteopenia, osteoarthritis, peripheral arterial disease. No acute injury. Continue to monitor this. 5. Thrombocytopenia. This is chronic. We will continue to monitor it especially in the setting of aspirin and clopidogrel use. 6. Hypertension. Continue home metoprolol. IV Lasix added for heart failure exacerbation. We will hold ramipril in the setting of low normal blood pressure. 7. Elevated troponin. The patient's troponin is 0.04 which appears to be his baseline. We will repeat troponin now to ensure there is no elevation. 8. Atrial fibrillation. Continue home metoprolol. 9. Hyperlipidemia. Continue home statin medication. 10. Coronary artery disease. Continue aspirin, clopidogrel, and metoprolol. 11. DVT prophylaxis: According to DVT risk assessment, the patient scores high placing him at highest risk. At this time, we will hold off on Lovenox and other chemo DVT prophylaxis in the setting of planned thoracentesis for tomorrow. We will reassess for restart after procedure. 12. Code Status: Full code. I had a long discussion with the patient and daughters and the patient wishes to be a full code at this time. TIME SPENT: Approximately 70 minutes was spent on this admission, greater than half that time was spent [id number] with the patient and his family obtaining a history, performing a physical, and reviewing the plan of care. The case has been reviewed with my attending, Dr. Thrasher, who is in agreement with the plan of care. ROSALINDA CLAYTON [id number]/[facility] #: [id number] MTDZayra
[2019-03-26] MEDS: Atorvastatin* 20 MG TAB PO SCH (18:16)
[2019-03-26 18:42] LABS: Influenza A Molecular NEGATIVE (Negative); Influenza B Molecular NEGATIVE (Negative)
[2019-03-27] MEDS: Furosemide IV* 10 MG/ML VIAL (40 MG) IV SCH ×2 (07:53→16:29)
[2019-03-27] MEDS: Clopidogrel TAB* 75 MG PO SCH (09:50)
[2019-03-27] MEDS: Aspirin EC TAB* 81 MG TAB.EC PO SCH (09:50)
[2019-03-27 09:51] LABS: ABS Eosinophils 0.1 10^3/ul (0-0.6); ABS Lymphocytes 0.6 10^3/ul (1.0-4.8); ABS Neutrophils 5.7 10^3/ul (1.5-7.7); Eosinophil % 0.8 %; Hematocrit 44 % (42-52); Hemoglobin 14.4 g/dL (14.0-18.0); Lymphocyte % 8.2 %; Mean Corpuscular HGB Conc 33 g/dL (31-36); Mean Corpuscular Hemoglobin 31 pg (27-31); Mean Corpuscular Volume 95 fL (80-94); Mean Platelet Volume 10.2 fL (7.4-10.4); Platelet Count 129 10^3/uL (150-450); Red Blood Count 4.62 10^6 /uL (4.18-5.48); Red Cell Distribution Width 15 % (10-15); White Blood Count 7.4 10^3/uL (3.5-10.8)
[2019-03-27 10:01] LABS: Activated Partial Thrombo Time 32.2 seconds (26.0-38.0); INR 1.14 (0.82-1.09)
[2019-03-27 10:11] LABS: C Reactive Protein 12.95 mg/L (<8.01)
[2019-03-27 10:13] LABS: Troponin I 0.06 ng/mL (<0.04)
[2019-03-27] MEDS: Metoprolol Succinate XL TAB* 25 MG PO SCH ×2 (12:11→20:48)
[2019-03-27] MEDS: Azithromycin IV(*) 250 MG in NS 0.9% 250 ML* 250 ML IVPB SCH (13:41)
--- NOTE | 2019-03-27 15:24 | BRIEFOPN ---
Brief Operative/Procedure Note - Operation Details Pre-Op Diagnosis: Pleural effusion Post-Op Diagnosis: Loculated left effusion with atlectasis of lung Procedures: Thoracentesis with U/S guidance on left side Surgeon(s)/Proceduralists: kady Patel Anesthesia: 1% lidocaine 5 cc Estimated Blood Loss: None Findings: Loculated left effusion with atlectasis and possible trapped lung Specimen(s)/Culture(s) Description: Cytology, biochem, hematology, micro Complications: None. CXR pending
[2019-03-27 16:01] LABS: Body Fluid Source Pleural Fluid
[2019-03-27] MEDS: cefTRIAXone(*) 1 GM in NS 0.9% 50 ML* 50 ML IVPB SCH (16:06)
[2019-03-27 16:15] LABS: Troponin I 0.06 ng/mL (<0.04)
[2019-03-27 17:04] LABS: Body Fluid Mono 24 %
--- NOTE | 2019-03-27 17:32 | CONS ---
PULMONARY CONSULTATION REPORT: DATE OF CONSULT: 03/27/19 CONSULTATION REQUESTED BY: ROSALINDA Giraldo REASON FOR CONSULT: Evaluation of pleural effusion. HISTORY OF PRESENT ILLNESS: The patient is an 88-year-old male with history of coronary artery disease, requiring 9 stents in the past; history of heart failure with preserved ejection fraction; atrial fibrillation, not on anticoagulation, presented for evaluation of generalized weakness and fall at home. He has been very functional prior to this, this is a significant change from his baseline. He usually walks with a walker, has been bedbound 1 day prior to the presentation. He also appeared to be having generalized weakness. The patient also complained of decreased appetite. The patient also complains of cough going on for the past 1 to 2 weeks. He was treated with a 5 day course of levofloxacin. He denies fevers or chills. Denied abdominal pain , nausea, vomiting, diarrhea, dysuria, urinary frequency, urgency, or retention. He is on diuresis with Lasix. He has received 80 mg of Lasix due to worsening lower extremity edema. The patient also with reported weight gain likely from fluid retention. He has weight loss after the Lasix was administered by daughter. The patient had a fall 2 to 3 weeks ago, has residual right leg pain. The patient is on O2 supplementation at home at 3 L all times. He is currently requiring 4 L O2 supplementation. The patient had further evaluation, which showed thrombocytopenia which is chronic for him. He was noted to have elevated BNP at 182. Chest x-ray was performed in the ED. I have personally reviewed chest x-ray and also his CT scan done today. Chest x- ray showed evidence of left pleural effusion with volume loss. He also was noted to have small right pleural effusion with basilar atelectasis bilaterally. CT scan of the chest showed significant atelectasis and elevated left hemidiaphragm with fluid. The patient also with small effusion on the right side. The patient was admitted for evaluation of pneumonia and was initiated on antibiotics. He is currently on azithromycin and Zithromax. PAST MEDICAL HISTORY: 1. CAD with 9 stents. 2. Heart failure with preserved ejection fraction. 3. Moderate aortic stenosis. 4. Hypertension. 5. Dyslipidemia. 6. TIA in 1986. 7. GERD. 8. Hiatal hernia. 9. History of GI bleed, not on anticoagulation for AFib due to that. 10. Anemia. 11. Arthritis. 12. Squamous cell carcinoma of the lower lip. PAST SURGICAL HISTORY: Cardiac stent, left shoulder melanoma removal. MEDICATIONS: 1. Aspirin. 2. Plavix. 3. Furosemide. 4. Metoprolol. 5. Multivitamin. 6. Potassium. 7. Ramipril. 8. Simvastatin. DRUG ALLERGIES: LATEX, NIACIN, ZOLPIDEM. FAMILY HISTORY: Brother from [place]. Another brother had bypass. Father with brain tumor. No family history of diabetes or CVA. SOCIAL HISTORY: Quit smoking in 1999. Prior to that, he smoked 2 packs per day for 40 to 50 years. Rarely drinks alcohol. 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 REVIEW OF SYSTEMS: All 14 systems reviewed and as per HPI. PHYSICAL EXAM: A well-built male, in no significant distress, appears weak. Vital Signs: Temperature 97.3, pulse 73 beats per minute, respiratory rate 24 per minute, O2 sat 99% on 4 L, blood pressure 99/65. HEENT: Pupils equal, reactive to light. Mucous membranes moist. Lungs: Diminished air entry bilaterally, left greater than right. Cardiovascular: S1, S2 present. Abdomen : Soft, nontender, nondistended. Bowel sounds present. Extremities: Normal range of motion. Edema present. Skin: No rash or bruises. Neuro: Alert, awake, oriented x3. DIAGNOSTIC STUDIES/LAB DATA: WBC 7.4, hemoglobin 14.4, hematocrit 44, platelet count 129. Sodium 134, potassium 4.6, chloride 97, bicarb 31, BUN 16, creatinine 0.78. Troponins elevated, CRP 12.65, BNP 182. Influenza A and B negative. Chest x-ray and CT as described above in HPI. IMPRESSION AND RECOMMENDATIONS: 88-year-old male with history of bilateral pleural effusion, also with history of congestive heart failure. The patient with elevated left hemidiaphragm and atelectasis of the left lung. The patient with generalized weakness. He was found to have loculated effusion on the left side. I have scanned the chest with ultrasound. He is noted to have loculated effusion on the left side, which is concerning. He underwent thoracentesis with removal of 550 cc of pleural fluid dark yellow turbid looking concern for pneumonia and parapneumonic effusion. He is on antibiotics currently. Further recommendations pending pleural fluid results. Thank you for allowing me to participate in the care of your patient. Will follow up with you. [id number]/[facility] #: [id number] AALIYAH
[2019-03-27] MEDS: Atorvastatin* 20 MG TAB PO SCH (17:36)
--- NOTE | 2019-03-27 20:08 | PRO ---
THORACENTESIS REPORT: DATE OF PROCEDURE: 03/27/19 - ROOM #403 PROCEDURE PERFORMED: Ultrasound-guided thoracentesis on the left side. PRE-PROCEDURAL DIAGNOSIS: CT showed a large left pleural effusion with atelectasis. ANESTHESIA: Local anesthesia with 1% lidocaine. DESCRIPTION OF PROCEDURE: Informed consent was obtained from the patient prior to the procedure after all the risks and benefits were thoroughly explained. The procedure was also discussed with the patient's daughter. Appropriate time- out was agreed on by attending staff prior to the procedure. The patient was sitting up and leaning forward during the procedure. Strict aseptic precautions and barrier techniques were utilized. Portable ultrasound was utilized at the bedside to localize the effusion. The patient was noted to have significant atelectasis and elevated left hemidiaphragm noted on the ultrasound. The patient also with moderate amounts of left effusion with loculations. Right side, he was shown to have [id number] amounts of effusion without any loculations. An appropriate time-out was performed and agreed on by the attending staff prior to the procedure. The area was disinfected with chlorhexidine. A sterile drape was placed. After ultrasound localization, 1% lidocaine was instilled intradermally down into the pleural space taking precautions. A #11 scalpel blade was utilized to make stab incision. A CareFusion 8-Greenlandic thoracentesis catheter was then inserted under manual suction taking precautions. Catheter was left in place and needle was removed; 550 mL of dark yellow turbid fluid was aspirated under manual suction. The patient complained of some chest discomfort towards the end of the procedure and the procedure was, therefore, stopped with concern for possible trapped lung. A sterile Band-Aid was applied at the site. Postprocedure chest x -ray was ordered and is pending at the time of dictation. The patient tolerated the procedure well. Fluid was sent to the lab for further testing. [id number]/[facility] #: [id number] [facility] HOSPITALZayra
[2019-03-28] MEDS: Metoprolol Succinate XL TAB* 50 MG PO SCH ×2 (08:45→22:28)
[2019-03-28] MEDS: Clopidogrel TAB* 75 MG PO SCH (08:45)
[2019-03-28] MEDS: Aspirin EC TAB* 81 MG TAB.EC PO SCH (08:45)
[2019-03-28] MEDS ORDERED: Metoprolol Succinate XL TAB* 50 MG PO SCH (09:00)
[2019-03-28] MEDS: Furosemide TAB* 40 MG PO SCH (11:50)
[2019-03-28] MEDS: Azithromycin IV(*) 250 MG in NS 0.9% 250 ML* 250 ML IVPB SCH (14:30)
[2019-03-28] MEDS ORDERED: Furosemide IV* 10 MG/ML VIAL (40 MG) IV SCH (15:00)
[2019-03-28] MEDS: cefTRIAXone(*) 1 GM in NS 0.9% 50 ML* 50 ML IVPB SCH (15:47)
[2019-03-28 16:00] LABS: Fluid Type, Glucose PLEURAL FLUID
[2019-03-28 16:09] LABS: Lactate Dehydrogenase, BF 109 U/L
[2019-03-28 16:13] LABS: Fluid Type, Protein, Total PLEURAL FLUID
[2019-03-28] MEDS: Atorvastatin* 20 MG TAB PO SCH (18:22)
[2019-03-28] MEDS: Senna TAB 8.6 mg* TAB PO PRN (18:22)
[2019-03-29 08:58] LABS: BUN/Creatinine Ratio 28.6 (8-20); C Reactive Protein 9.55 mg/L (<8.01); EGFR African American 128.8 (>60); EGFR Non-African American 106.4 (>60); Potassium 4.2 mmol/L (3.5-5.0)
[2019-03-29 09:04] LABS: Hematocrit 41 % (42-52); Hemoglobin 13.4 g/dL (14.0-18.0); Mean Corpuscular HGB Conc 33 g/dL (31-36); Mean Corpuscular Hemoglobin 31 pg (27-31); Mean Corpuscular Volume 95 fL (80-94); Mean Platelet Volume 10.2 fL (7.4-10.4); Platelet Count 95 10^3/uL (150-450); Red Blood Count 4.26 10^6 /uL (4.18-5.48); Red Cell Distribution Width 15 % (10-15); White Blood Count 6.8 10^3/uL (3.5-10.8)
[2019-03-29 09:13] LABS: ABS Eosinophils 0.2 10^3/ul (0-0.6); ABS Lymphocytes 0.9 10^3/ul (1.0-4.8); ABS Monocytes 1.2 10^3/ul (0-0.8); ABS Neutrophils 4.5 10^3/ul (1.5-7.7); Eosinophil % 2.3 %; Lymphocyte % 12.8 %; Nucleated Red Blood Cells % 0.1
[2019-03-29] MEDS: Aspirin EC TAB* 81 MG TAB.EC PO SCH (09:25)
[2019-03-29] MEDS: Furosemide TAB* 40 MG PO SCH (09:25)
[2019-03-29] MEDS: Metoprolol Succinate XL TAB* 50 MG PO SCH ×2 (09:25→20:58)
[2019-03-29] MEDS: Clopidogrel TAB* 75 MG PO SCH (09:25)
[2019-03-29] MEDS: Azithromycin IV(*) 250 MG in NS 0.9% 250 ML* 250 ML IVPB SCH (14:17)
--- NOTE | 2019-03-29 14:39 | PN ---
Progress Note - Progress Note Date of Service: 03/29/19 - Pulm f/u note Note: Pt seen and examined at bedside. Pt reports feeling better. Pt reported benefit with thoracentesis. C/o fatigue, has been falling asleep during exam. Active Medications Generic Name Dose Route Start Last Admin Trade Name Freq PRN Reason Stop Dose Admin Acetaminophen 650 mg 03/26/19 13:07 Tylenol Tab* PO Q4H PRN mild to moderate pain Aspirin 81 mg 03/26/19 13:15 03/29/19 09:25 Aspirin Ec Tab* PO 81 mg QAM BERENICE Administration Atorvastatin Calcium 20 mg 03/26/19 18:00 03/28/19 18:22 Lipitor* PO 20 mg QPM BERENICE Administration Clopidogrel Bisulfate 75 mg 03/26/19 13:15 03/29/19 09:25 Plavix Tab* PO 75 mg DAILY BERENICE Administration Furosemide 80 mg 03/28/19 09:00 03/29/19 09:25 Lasix Tab* PO 80 mg DAILY BERENICE Administration Azithromycin 250 mg/ Sodium 250 mls @ 250 mls/hr 03/27/19 14:00 03/29/19 14: 17 Chloride IVPB 250 mls/hr Q24H BERENICE Administration Ceftriaxone Sodium 1 gm/ 50 mls @ 100 mls/hr 03/26/19 15:00 03/28/19 15:47 Sodium Chloride IVPB 100 mls/hr Q24H BERENICE Administration Metoprolol Succinate 50 mg 03/28/19 09:00 03/29/19 09:25 Toprol Xl Tab* PO 50 mg BID BERENICE Administration Senna 2 tab 03/28/19 14:54 03/28/19 18:22 Senokot 8.6 Mg Tab* PO 2 tab DAILY PRN Administration CONSTIPATION Vital Signs Temp Pulse Resp BP Pulse Ox 97.5 F 92 18 138/77 99 03/29/19 11:01 03/29/19 11:01 03/29/19 11:01 03/29/19 11:01 03/29/19 11:01 O/E: Pt in NAD HEENT: PERRLA, no JVD Lungs: Diminished air entry at bases CVS: S1, S2+ Abd: Obese, BS+ Ext: No edema Skin: No rash Neuro: No focal deficits Laboratory Results - last 24 hr 03/27/19 03/27/19 03/27/19 15:10 15:10 15:10 WBC RBC Hgb Hct MCV MCH MCHC RDW Plt Count MPV Neut % (Auto) Lymph % (Auto) [place] % (Auto) Eos % (Auto) Baso % (Auto) Absolute Neuts (auto) Absolute Lymphs (auto) Absolute Monos (auto) Absolute Eos (auto) Absolute Basos (auto) Absolute Nucleated RBC Nucleated RBC % Sodium Potassium Chloride Carbon Dioxide Anion Gap BUN Creatinine Est GFR ( Amer) Est GFR (Non-Af Amer) BUN/Creatinine Ratio Glucose Calcium C-Reactive Protein B-Natriuretic Peptide Fluid Source Pleural fluid Pleural fluid Pleural fluid Fluid Glucose 161 Fluid Total Protein 2.9 Fluid LDH 109 Miscellaneous Test 03/27/19 03/29/19 03/29/19 15:10 08:23 08:23 WBC 6.8 RBC 4.26 Hgb 13.4 L Hct 41 L MCV 95 H MCH 31 MCHC 33 RDW 15 Plt Count 95 L MPV 10.2 Neut % (Auto) 65.9 Lymph % (Auto) 12.8 [place] % (Auto) 18.5 Eos % (Auto) 2.3 Baso % (Auto) 0.5 Absolute Neuts (auto) 4.5 Absolute Lymphs (auto) 0.9 L Absolute Monos (auto) 1.2 H Absolute Eos (auto) 0.2 Absolute Basos (auto) 0.0 Absolute Nucleated RBC 0.0 Nucleated RBC % 0.1 Sodium 139 Potassium 4.2 Chloride 102 Carbon Dioxide 33 H Anion Gap 4 BUN 20 Creatinine 0.70 Est GFR ( Amer) 128.8 Est GFR (Non-Af Amer) 106.4 BUN/Creatinine Ratio 28.6 H Glucose 101 H Calcium 9.0 C-Reactive Protein 9.55 H B-Natriuretic Peptide Fluid Source Fluid Glucose Fluid Total Protein Fluid LDH Miscellaneous Test 7.7 03/29/19 08:23 WBC RBC Hgb Hct MCV MCH MCHC RDW Plt Count MPV Neut % (Auto) Lymph % (Auto) [place] % (Auto) Eos % (Auto) Baso % (Auto) Absolute Neuts (auto) Absolute Lymphs (auto) Absolute Monos (auto) Absolute Eos (auto) Absolute Basos (auto) Absolute Nucleated RBC Nucleated RBC % Sodium Potassium Chloride Carbon Dioxide Anion Gap BUN Creatinine Est GFR ( Amer) Est GFR (Non-Af Amer) BUN/Creatinine Ratio Glucose Calcium C-Reactive Protein B-Natriuretic Peptide 248 H Fluid Source Fluid Glucose Fluid Total Protein Fluid LDH Miscellaneous Test I/R: 88 y o obese m former smoker with h/o CAD, , diastolic CHF a/w worsening SOB, found to have b/l pl effusions. Pt also was treated for PNA Pt underwent thoracentesis on 03/27/19 with image guidance. Pt noted to have atelectasis on left side with elevated lt roly diaphragm, mildly loculated lt effusion. Pt also noted to have small effusion on rt side. Pt had 550 cc of dark yellow fluid removed, cytology negative for malignancy Fluid characteristics consistent with transudative effusion CXR post procedure showed elevated lt diaphragm, atelectasis and decrease in lt effusion Pt reported symptomatic benefit O2 requirement same as baseline Pt to have f/u CXR to ensure improvement Recommend encouraging pt to have deep breathing If continues to have effusion, might need rpt procedure Review of old CXRs showed chronically elevated lt hemidiaphragm and atlectasis of left lung Complete abx for 7 day course Optimization of cardiac status, c/w diuresis Evaluation for recent falls and further management as per primary team D/w Dr Reyes
[2019-03-29] MEDS: cefTRIAXone(*) 1 GM in NS 0.9% 50 ML* 50 ML IVPB SCH (16:09)
[2019-03-29] MEDS: Atorvastatin* 20 MG TAB PO SCH (17:36)
[2019-03-30] MEDS: Clopidogrel TAB* 75 MG PO SCH (09:53)
[2019-03-30] MEDS: Aspirin EC TAB* 81 MG TAB.EC PO SCH (09:53)
[2019-03-30] MEDS: Furosemide TAB* 40 MG PO SCH (09:53)
[2019-03-30] MEDS: Senna TAB 8.6 mg* TAB PO PRN (09:54)
[2019-03-30] MEDS: Metoprolol Succinate XL TAB* 50 MG PO SCH ×2 (09:55→21:24)
[2019-03-30] MEDS: cefTRIAXone(*) 1 GM in NS 0.9% 50 ML* 50 ML IVPB SCH (15:34)
[2019-03-30] MEDS: Atorvastatin* 20 MG TAB PO SCH (18:40)
[2019-03-31] MEDS: Clopidogrel TAB* 75 MG PO SCH (09:15)
[2019-03-31] MEDS: Aspirin EC TAB* 81 MG TAB.EC PO SCH (09:15)
[2019-03-31] MEDS: Metoprolol Succinate XL TAB* 50 MG PO SCH ×2 (09:15→20:29)
[2019-03-31] MEDS: Furosemide TAB* 40 MG PO SCH (09:15)
[2019-03-31] MEDS: cefTRIAXone(*) 1 GM in NS 0.9% 50 ML* 50 ML IVPB SCH (15:55)
[2019-03-31] MEDS: Atorvastatin* 20 MG TAB PO SCH (20:13)
[2019-04-01] MEDS: Metoprolol Succinate XL TAB* 50 MG PO SCH (09:08)
[2019-04-01] MEDS: Aspirin EC TAB* 81 MG TAB.EC PO SCH (09:08)
[2019-04-01] MEDS: cefTRIAXone(*) 1 GM in NS 0.9% 50 ML* 50 ML IVPB SCH (09:08)
[2019-04-01] MEDS: Clopidogrel TAB* 75 MG PO SCH (09:08)
[2019-04-01] MEDS: Furosemide TAB* 40 MG PO SCH (09:08)
[2019-04-01 09:54] VITALS: BP 115/59
--- NOTE | 2019-04-01 12:52 | DS ---
DISCHARGE SUMMARY: DATE OF ADMISSION: 03/26/19 DATE OF DISCHARGE: 04/01/19 DISCHARGE DIAGNOSES: 1. Pneumonia with parapneumonic pleural effusion. 2. Coronary artery disease, status post multiple stents. 3. Diastolic heart failure. 4. Moderate aortic stenosis. 5. History of hypertension. 6. Hyperlipidemia. 7. History of transient ischemic attack. 8. Gastroesophageal reflux disease hiatus hernia. 9. History of lower gastrointestinal bleeding. 10. History of paroxysmal atrial fibrillation. 11. Chronic thrombocytopenia. 12. History of melanoma. 13. History of squamous cell carcinoma of lower lip. 14. Diverticulosis. 15. History of tobacco abuse. 16. Stress ischemia. 17. Dementia. HISTORY: Aditya Raygoza is an 88-year-old man admitted with weakness after falling. Please see the dictated admission note for details of the present illness, past medical history, family history, social and personal history, review of systems, and physical examination. The patient also reported cough for 1 to 2 weeks for which he had taken a 5-day course of levofloxacin as an outpatient. DIAGNOSTIC STUDIES/LAB DATA: CBC on 03/26/19: WBC 7.5, H and H 13.9/42, MCV 95 , PLT 106,000. CBC on 03/27/19: WBC 7.4, H and H 14.4/44, MCV 95, PLT 129, 000. On 03/29/19: WBC 6.8, H and H 13.4/41, MCV 95, PLT 95,000. INR 1.14, PTT 32.2. Chemistries on 03/26/19: Sodium 134, potassium 4.3, chloride 97, CO2 31, BUN and creatinine 16/0.78, glucose 97. Rest of his comprehensive metabolic panel was within normal limits. CRP was 12.95 on 03/27/19 and 9.55 on 03/29/19. BNP was 182 on 03/26/19, 248 on 03/29/19. Troponins were 0.04, 0.06, and 0.06. Urinalysis: Yellow, clear, specific gravity 1.011, pH 8, dipsticks negative. Pleural fluid was yellow, clear, wbc's 794, rbc's 1965, total cell count 100, neutrophils 10, lymphocytes 66, monocytes 24. Total protein 2.9, glucose 161, LDH 109, pleural fluid pH was 7.7. Flu swab negative. Legionella, urinary antigen, Streptococcus pneumoniae, antigen screen urine both negative. Gram stain pleural fluid negative. No growth. Cytology of the pleural fluid was negative for malignant cells Imaging: Chest x-ray on 03/26/19, showed large left pleural effusion with a complete opacification of the left hemithorax, small right pleural effusion with right basilar atelectasis versus consolidation. Hip pelvis x-ray on , osteopenia, osteoarthritis, peripheral arterial disease, no osseous injury. Chest CT on 03/27/19, large left pleural effusion with near complete atelectasis of the left lung, elevation of the left hemidiaphragm suggestive of diaphragmatic paralysis, small to moderate pleural effusion with compressive atelectasis at the right lung base, atherosclerosis. Chest ultrasound on , left pleural effusion, sites were marked for thoracentesis. Chest x-ray on 03/27/19, cardiomegaly, moderate left pleural effusion with left basilar atelectasis versus consolidation. Chest x-ray on 03/30/19, moderate left pleural effusion, heart mildly enlarged and unchanged, small right pleural effusion, mild prominence to the interstitial markings, which has increased slightly. . EKG on 03/26/19, sinus rhythm with first-degree AV block, low voltage in extremity leads, increase in anterior voltage V1-V2 may be due to altered lead placement, otherwise no significant change since 01/18/19. Consultation report of Dr. Patel, Pulmonary, she suggested that the patient had loculated effusion on the left side. She did a thoracentesis with removal of 550 cc of pleural fluid, dark yellow turbid. Followup consultation on , Pulmonary, Dr. Patel, felt that the patient was doing better, fluid was transudate. Chest x-ray postprocedure showed elevated diaphragm, atelectasis, and decrease in effusion. The patient had symptomatic benefit, O2 requirement seems at baseline. She recommended a followup chest x-ray to ensure improvement , recommended encouraging the patient to have deep breathing, felt that if he had continued effusion, might need repeat procedure. Review of old x-rays revealed chronically elevated left hemidiaphragm and atelectasis of the left lung, recommended completing antibiotics for 7-day course. Optimization of cardiac status compatible with diuresis recommended. Verbally, she recommended a repeat chest x-ray in about 6 weeks. HOSPITAL COURSE: The patient was initially admitted and placed on ceftriaxone and azithromycin. He received ceftriaxone for 7 days. Azithromycin was stopped on 03/30/19. He continued on furosemide for diastolic heart failure, metoprolol for atrial fibrillation. We once again discussed anticoagulation for atrial fibrillation, which he declined, did not want to go back on warfarin. His elevated troponins were felt to be due to stress ischemia. He received PT evaluation. At the beginning, he was quite weak, but by discharge, he was able to walk in the hooper with a walker. Initially, it was thought that he might need subacute rehab, but by discharge, his daughter felt that she could care for him at home as long as he could walk to the bathroom, which he was able to do. During his hospitalization, he underwent thoracentesis (see above). He tolerated this except for some chest pain towards the end of the procedure. Afterwards, he felt better, his breathing was easier. The fluid did not appear to reaccumulate during the course of his hospitalization. It was felt to be a parapneumonic effusion. It would be followed as an outpatient (see above). He experienced confusion. He does have underlying dementia. He knew who his daughter and I were, but he thought he was in the hospital in [place], [place] at times. By the time of discharge, his daughter felt that his confusion was at baseline and that he would be even better once I got him home in his familiar surroundings. She declined having followup with [facility]. He did receive IV furosemide during hospitalization initially, but I felt that his symptoms were due to infection and not due to worsening of diastolic heart failure. This was felt to be stable. He was DNR and MOLST form was completed during his hospitalization. He initially wanted to be a full code, but then confirmed his previous wishes to be DNR. At the time of discharge, he is to be on his usual diet, activity as tolerated. He is going home in improved condition. DISCHARGE MEDICATIONS: As follows: 1. Furosemide 80 mg daily. 2. MultiVites 1 daily. 3. Potassium chloride 20 mEq daily. 4. Acetaminophen 650 every 4 hours as needed for pain. 5. Baby aspirin 81 mg daily. 6. Clopidogrel 75 mg daily. 7. Metoprolol 50 mg twice a day. 8. Senna 2 tablets daily p.r.n. constipation. 9. Simvastatin 40 mg every evening. 10. Ramipril 2.5 mg daily. Followup will be in 1 to 2 weeks. This might be a house call as is very difficult for the family to get him out in the winter. [id number]/[facility] #: [id number] MTDD
== END 2019-04-01 10:50 | disposition home or self-care (01) | DRG 193 ==
LOC: ED 08:00 → MED 13:07
PROVIDERS: ADMIT Internal Medicine; ATTEND Internal Medicine Geriatric Medicine
PROC: 0W9B3ZZ Drainage of Left Pleural Cavity, Percutaneous Approach (ICD-10-PCS; principal; 2019-03-27)
DX: J18.9 Pneumonia, unspecified organism (principal); I50.33 Acute on chronic diastolic (congestive) heart failure; J90 Pleural effusion, not elsewhere classified; J98.11 Atelectasis; I25.10 Atherosclerotic heart disease of native coronary artery without angina pectoris; I11.0 Hypertensive heart disease with heart failure; I35.0 Nonrheumatic aortic (valve) stenosis; K21.9 Gastro-esophageal reflux disease without esophagitis; K44.9 Diaphragmatic hernia without obstruction or gangrene; I48.0 Paroxysmal atrial fibrillation; D69.6 Thrombocytopenia, unspecified; K57.90 Diverticulosis of intestine, part unspecified, without perforation or abscess without bleeding; I99.8 Other disorder of circulatory system; F03.90 Unspecified dementia, unspecified severity, without behavioral disturbance, psychotic disturbance, mood disturbance, and anxiety; I73.9 Peripheral vascular disease, unspecified; I44.0 Atrioventricular block, first degree; R74.8 Abnormal levels of other serum enzymes; M85.851 Other specified disorders of bone density and structure, right thigh; M16.11 Unilateral primary osteoarthritis, right hip; E78.5 Hyperlipidemia, unspecified; E66.9 Obesity, unspecified; M25.551 Pain in right hip; Z68.31 Body mass index [BMI] 31.0-31.9, adult; Z95.5 Presence of coronary angioplasty implant and graft; Z79.82 Long term (current) use of aspirin; Z79.899 Other long term (current) drug therapy; Z88.8 Allergy status to other drugs, medicaments and biological substances; Z91.040 Latex allergy status; Z87.891 Personal history of nicotine dependence; Z86.73 Personal history of transient ischemic attack (TIA), and cerebral infarction without residual deficits; Z85.819 Personal history of malignant neoplasm of unspecified site of lip, oral cavity, and pharynx; Z85.820 Personal history of malignant melanoma of skin; Z82.49 Family history of ischemic heart disease and other diseases of the circulatory system
CPT/HCPCS: 36415; 71045; 71046; 71250; 76604; 80048; 80053; 81003; 82945; 83615; 83735; 83880; 83986; 84157; 84484; 85025; 85610; 85730; 86140; 87070; 87205; 87899; 88112; 89051; 93005; 96374; 97530; 99284; A9270-GY; G8978-GP-CJ; G8978-GP-CL; G8979-GP-CI; G8979-GP-CJ; J0456; J0696; J1650; J1940